=== PATIENT | male | born 1955 | race Caucasian/White ===

== ENCOUNTER 2018-07-08 11:50 | Day surgery (SDC) | payer MEDICARE, OTHER ==
[~2018-07-08] VITALS: Ht 172.7 cm; Wt 106.1 kg
[~2018-07-08 11:50] MED LIST: HYDROCODON-ACE1 EAC8 PO; POLYTRIM EYE DR10 ML OD; SHINGRIX ADJUV0.5 ML IM
--- NOTE | 2018-07-08 14:58 | NUR ---
07/08/18 1457 Sheets,Eleanor 1444 PT ARRIVED TO PACU ON 3L VIA NC, RESP EVEN AND UNLABORED. PT WAKES TO VERBAL STIMULI. 1450 MD AT BEDSIDE TALKING TO PT, MD AWARE OF ELEVATED BP. PT ROLLED TO BACK. 1451 PT REPORTS PAIN IN ABD 8/10, PT EDCATION GIVEN ON AIR USED DURING PROCEDURE. PT ROLLED TO SIDE. PT ENCOURGED TO PASS GAS/AIR.
--- NOTE | 2018-07-09 12:03 | OR ---
[facility] [address], [place] [address] Signed DATE OF OPERATION: 07/08/2018 SURGEON: Amanda Hoover MD PREOPERATIVE DIAGNOSIS: Colon screening. POSTOPERATIVE DIAGNOSES: 1. Multiple polyps. 2. Diverticulosis of sigmoid. PROCEDURE: Total colonoscopy to cecum with cold morcellation polypectomy x9. ANESTHESIA: Intravenous sedation, fentanyl 100 mcg, Versed 8 mg. INDICATION: This 63-year-old white man is a patient of Dr. Zamora and underwent screening colonoscopy by me in 2002, which was normal. He has additionally undergone left inguinal hernia repair by me in 2004 and is doing well in that regard. He is here to undergo screening colonoscopy, though he has no symptoms of bleeding, diarrhea, or constipation. He understands the risks of bleeding, infection, and perforation related to colonoscopy and wishes to proceed. FINDINGS: The prep was good. Complete colonoscopy was undertaken to the cecum. There were multiple small polyps throughout, two in the cecum, one at the hepatic flexure, four in the sigmoid, and two in the rectum. He had diverticula of the sigmoid as well. There were no other findings of note. PROCEDURE IN DETAIL: The patient was brought to the endoscopy suite and placed in lateral decubitus position, given intravenous sedation to the point of slurred speech and nystagmus. Full cardiopulmonary monitoring was maintained. Digital rectal examination was normal. The Olympus video colonoscope was passed in the rectum and manipulated throughout the colon noting diverticulosis of the sigmoid. The scope was ultimately advanced to the cecum. The ileocecal valve and appendiceal orifice were normal. There were two polyps, probably adenomas in the cecum, they were both excised with cold morcellation technique Electronically Signed By: AMANDA HOOVER MD 07/09/18 1203 PATIENT NAME: SHARON ORTA OPERATIVE REPORT DATE OF : 53 REPORT #: [id number] PHYSICIAN: AMANDA HOOVER MD PCP: LIVE ZAMORA MD REPORT IS CONFIDENTIAL AND NOT TO BE RELEASED WITHOUT AUTHORIZATION [facility] [address], [place] [address] Signed with multiple bites. The scope was withdrawn. Another single polyp was noted at the hepatic flexure that too was excised with cold morcellation technique. Further withdrawal of scope showed no other abnormality into the sigmoid where there were a cluster of four polyps, probably hyperplastic, all excised with cold morcellation technique and withdrawal to the upper rectum showing two small polyps probably hyperplastic, also both excised with cold morcellation technique. Retroflexed view was undertaken showing some internal hemorrhoidal changes. The scope was straightened, withdrawn, and removed, and the patient was taken to the recovery room in good condition. CONCLUDING DIAGNOSES: 1. Multiple polyps. 2. Diverticulosis. PLAN: Recommend repeat colonoscopy in one year. We will review his pathology reports as well. MD FRANKY Avila/AMADO /[id number] cc: Live Zamora MD Copies: LIVE ZAMORA MD ~ Electronically Signed By: AMANDA HOOVER MD 07/09/18 1203 PATIENT NAME: YOUSHARON JESSIKA OPERATIVE REPORT DATE OF : 53 REPORT #: [id number] PHYSICIAN: AMANDA HOOVER MD PCP: LIVE ZAMORA MD REPORT IS CONFIDENTIAL AND NOT TO BE RELEASED WITHOUT AUTHORIZATION
== END 2018-07-08 16:40 | disposition home or self-care (01) ==
LOC: DS 11:50 → OPS 11:50 → DS 13:00 → OPS 13:00
PROVIDERS: Surgery
PROC: 0DBL8ZX Excision of Transverse Colon, Via Natural or Artificial Opening Endoscopic, Diagnostic (ICD-10-PCS; 2018-07-08)
PROC: 0DBN8ZX Excision of Sigmoid Colon, Via Natural or Artificial Opening Endoscopic, Diagnostic (ICD-10-PCS; 2018-07-08)
PROC: 0DBP8ZX Excision of Rectum, Via Natural or Artificial Opening Endoscopic, Diagnostic (ICD-10-PCS; 2018-07-08)
PROC: 0DBH8ZX Excision of Cecum, Via Natural or Artificial Opening Endoscopic, Diagnostic (ICD-10-PCS; principal; 2018-07-08 13:00)
DX: Z12.11 Encounter for screening for malignant neoplasm of colon (principal); D12.0 Benign neoplasm of cecum; D12.3 Benign neoplasm of transverse colon; K63.5 Polyp of colon; K62.1 Rectal polyp; K57.30 Diverticulosis of large intestine without perforation or abscess without bleeding; K64.8 Other hemorrhoids; J45.909 Unspecified asthma, uncomplicated; M19.90 Unspecified osteoarthritis, unspecified site; M54.5 Low back pain; G89.29 Other chronic pain; E66.9 Obesity, unspecified; F12.20 Cannabis dependence, uncomplicated; F17.200 Nicotine dependence, unspecified, uncomplicated
CPT/HCPCS: 88305; 99153; G0500; J2250; J3010; J7120

== ENCOUNTER 2018-10-28 18:58 | Emergency (ER) | payer MEDICARE, OTHER ==
[~2018-10-28] VITALS: Ht 172.7 cm; Wt 99.8 kg
--- OUTSIDE RECORDS SUMMARY | ~2018-10-28 | XMS | Encounter Summary ---
Demographics + + + | Address | [address] | | | [place] [address] | + + + | Home Phone | | + + + | Preferred Language | Unknown | + + + | Marital Status | | + + + | Anabaptism Affiliation | NON | + + + | Race | White | + + + | Ethnic Group | Not or | + + + Author + + + | Author | [facility] | + + + | Organization | [facility] | + + + | Address | Unknown | + + + | Phone | Unavailable | + + + Support + + + + + | Name | Relationship | Address | Phone | + + + + + | Brandi Boyle | YURIY | [address] | | | | | [place], [place] | | | | | [address] | | + + + + + Care Team Providers + +------+ + | Care Appointment Setter Name | Role | Phone | + [...] [address] | | | | | [facility] | [address], [place] | | | | | Mailcode: [id number] | [address] | | | | | Physician[address] | | | | | | [place], [place] | | | | | | [address] | | | | | | [phone] | | | +--------+ + + + [...] | | | | | | five [id number] | | | | | | lumbar-type [...] | | + +---------+ + + | [facility] DEPARTMENT OF | | | | | [...] | | | | | | five [id number]-[id number] | | | | | | lumbar-type [...] | | + +---------+ + + | [facility] DEPARTMENT OF | | | | | [...] | | + +---------+ + + | [facility] DEPARTMENT OF | | | | | RADIOLOGY | | | | + +---------+ + + documented in this encounter Visit Diagnoses Not on filedocumented in this encounter"
--- OUTSIDE RECORDS SUMMARY | ~2018-10-28 | XMS | Encounter Summary ---
Demographics + + + | Address | [address] | | | [place] [address] | + + + | Home Phone | | + + + | Preferred Language | Unknown | + + + | Marital Status | | + + + | Uatsdin Affiliation | NON | + + + | Race | White | + + + | Ethnic Group | Not or | + + + Author + + + | Author | [facility] | + + + | Organization | [facility] | + + + | Address | Unknown | + + + | Phone | Unavailable | + + + Support + + + + + | Name | Relationship | Address | Phone | + + + + + | Brandi Boyle | YURIY | [address] | | | | | [place], [place] | | | | | [address] | | + + + + + Care Team Providers + +------+ + | Care Provider Service Representative Name | Role | Phone | + +------+ + | Yobani Millan DO | PCP | | + +------+ + Encounter Details +--------+ + + + + | Date | Type | Department | Care Team | Description | +--------+ + + + + | 07/29/ | Office | [facility] | Note, Outpatient | Progress Note | | 2001 | Visit-Trans | MEDICINE | Clinic | | | | cribed | | | | +--------+ + + [...] as of this encounter Progress Notes Interface, Data Processing Auditor In - 02/07/2006 6:22 AM PDTCLINIC DATE: 07/29/2001 ORTHOPEDIC CLINIC SUBJECTIVE: Mr. Boyle returns. He is still having significant back and lower extremity pain which he states is severe. He has been trying to be as active as possible. He is off OxyContin except at night. He is taking Vicodin and Lorcet in the day. He states the left is slightly worse than the right. PHYSICAL EXAMINATION: Unchanged. IMAGING STUDIES: Review of his EMG is equivocal with possible left L5 radiculopathy and maybe a mild right S1 radiculopathy. ASSESSMENT AND PLAN: At this point, I think we need to obtain further workup in the form of an MRI of the lumbar spine. Following this study, I will have him return to clinic in approximately 6 weeks. We will obtain AP and lateral flexion-extension views of the lumbar spine on his return. Juanjose Hayden M.D. / [id number] / [id number] / [id number] / [id number] cc: Yobani Millan D.O. [address] [place], [place] [id number] signed by Interface, Data Processing Auditor In at 02/07/2006 6:2 2 AM PDTdocumented in this encounter Plan of Treatment Not on filedocumented as of this encounter Visit Diagnoses Not on filedocumented in this encounter"
--- OUTSIDE RECORDS SUMMARY | ~2018-10-28 | XMS | Clinical Summary ---
Demographics + + + | Address | [address] | | | [place] [address] | + + + | Home Phone | | + + + | Preferred Language | Unknown | + + + | Marital Status | | + + + | Latter Day Affiliation | Unknown | + + + | Race | Unknown | + + + | Ethnic Group | Unknown | + + + Author + + + | Author | [facility] | | | and [place] | + + + | Organization | [facility] | | | and [...] Team Providers + +------+ + | Care [facility]ision [facility] Cente[facility] And Edger Name | Role | Phone | + [...] MD | | | | | | /[address] | | | | | | | [...] MD | | | | | | /[id number] | | | | | | | [...] | | | | | | SACRAL ([id number]) | | | | | + +--------+ [...] my direction according to | | | [facility] conscious sedation protocol. The area [...] + +--------+ | MEDICARE | MEDICA | [id number] | 09/02/19 | [phone] | | Medica | | | RE | | 07-Pre | 5 | | re | | | PART A | | sent | | | | | | AND B | | | | | | + +--------+ +--------+ + +--------+ | MODA | MODA | [id number] | 01/02/20 | [phone] | [address] | PPO | | | HEALTH | | 11-Pre | 9 | [phone] | | | | | | sent | | [place], | | | | [place] | | | | [place] [address] | | | | [place] | | [...] | | al/[place]swald | | 4 | [phone] | [place] | | | akshat | | | 2 (Home) | [address] | + +--------+ +--------+ + + Advance Directives Patient has advance care planning documents on file. For more information, please contact:[facility] [place] [address]
--- OUTSIDE RECORDS SUMMARY | ~2018-10-28 | XMS | Encounter Summary ---
Demographics + + + | Address | [address] | | | [place] [address] | + + + | Home Phone | | + + + | Preferred Language | Unknown | + + + | Marital Status | | + + + | Yarsani Affiliation | NON | + + + | Race | White | + + + | Ethnic Group | Not or | + + + Author + + + | Author | [facility] | + + + | Organization | [facility] | + + + | Address | Unknown | + + + | Phone | Unavailable | + + + Support + + + + + | Name | Relationship | Address | Phone | + + + + + | Brandi Boyle | YURIY | [address] | | | | | [place], [place] | | | | | [address] | | + + + + + Care Team Providers + +------+ + | Care Tube Knitter Name | Role | Phone | + +------+ + PCP | Unavailable | + +------+ + Encounter Details +--------+ + + + + | Date | Type | Department | Care Team | Description | +--------+ + + + + | 06/10/ | Results | Orthopaedics at | Juanjose Hayden MD | | | 2001 | Only | [facility] [address] | [address] | | | | | [facility] | [address], [place] | | | | | Mailcode: [id number] | [address] | | | | | Phys[address] | | | | | | [place], [place] | | | | | | [address] | | | | | | [phone] | | | +--------+ + + + [...] + | SPINE, LUMBOSACRAL, | Routin | 06/10/2001 | | Results for this | | 2 VIEWS | e | 2:15 PM | | procedure are in the | | | | PST | | results section. | + +--------+ + + + documented in this encounter Results SPINE, LUMBOSACRAL, 2 VIEWS (06/10/2001 2:15 PM PST) + + + + + + | Component | Value | Ref Range | Performed | Pathologist | | | | | At | Signature | + + + + + + | SPINE, | Radiologist 1: ANYI, | | | | | LUMBOSACRAL | Rema CAMPBELL-Radiologist | | | | | , 2 VIEWS | 2: RENEE SOMMERS AND | | | | | | LATERAL LUMBAR | | | | | | SPINE: 06/10/2001 | | | | | | Dictated 06/11/2001 | | | | | | COMPARISON: 04/30/01. | | | | | | FINDINGS: Combined | | | | | | anterior and posterior | | | | | | fusion of L5-S1 | | | | | | appearsunchanged with | | | | | | intact posterior facet | | | | | | screws and two interbody | | | | | | cages.There is no | | | | | | evidence of hardware | | | | | | loosening or | | | | | | failure. The | | | | | | interbodycages are | | | | | | unchanged in position | | | | | | and there is anatomic | | | | | | postoperativealignment | | | | | | of the lumbar | | | | | | spine. The remaining | | | | | | vertebral body | | | | | | heightsand | | | | | | intervertebral disc | | | | | | spaces are | | | | | | maintained. The | | | | | | pedicles andneural | | | | | | arches are | | | | | | intact. There is no | | | | | | interval change in | | | | | | sacroiliacdegenerative | | | | | | joint disease, left | | | | | | greater than right. | | | | | | IMPRESSION: | | | | | | 1. Combined anterior | | | | | | and posterior fusion, | | | | | | L5-S1 with | | | | | | intactposterior facet | | | | | | screws and interbody | | | | | | cages and no interval | | | | | | change inalignment or | | | | | | hardware failure. | | | | | | 2. 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 | | | | | | END OF IMPRESSION: | | | | + + + + + + + + | Specimen | + + | | + + + +---------+ + + | Performing | Address | City/State/Zipcode | Phone Number | | Organization | | | | + +---------+ + + | [facility] | | | | | RADIOLOGY | | | | + +---------+ + + documented in this encounter Visit Diagnoses Not on filedocumented in this encounter"
--- OUTSIDE RECORDS SUMMARY | ~2018-10-28 | XMS | Encounter Summary ---
Demographics + + + | Address | [address] | | | [place] [address] | + + + | Home Phone | | + + + | Preferred Language | Unknown | + + + | Marital Status | | + + + | Yazdanism Affiliation | Unknown | + + + | Race | Unknown | + + + | Ethnic Group | Unknown | + + + Author + + + | Author | [facility] | | | and [place] | + + + | Organization | [facility] | | | and [...] Team Providers + +------+ + | Care Legal Financial Specialist Name | Role | Phone | + +------+ + | Hamzah Zamora | PCP | Unavailable | + +------+ + Encounter Details +--------+ + + + + | Date | Type | Department | Care Team | Description | +--------+ + + + + | 08/13/ | Hospital | [facility] | Nick Ram | Chronic lumbar | | 2019 | Encounter | MED CTR OR PRE OP | MD Zeeshan [address] | radiculopathy; | | | | [address] | [address] [place] | Failed back syndrome | | | | [place] [id number] | [address] | of lumbar spine; | | | | | | S/P lumbar fusion | +--------+ + + + + Social History + +-------+ +--------+ [...] + + documented as of this encounter Last Filed Vital Signs + + + + | Vital Sign | Reading | Time Taken | + + + + | Blood Pressure | 139/95 | 08/13/20181413 PDT | + + + + | Pulse | 77 | 08/13/20181413 PDT | + + + + | Temperature | 36.2 C (97.2 F) | 08/13/2018 1250 PDT | + + + + | Respiratory Rate | 12 | 08/13/20181413 PDT | + + + + | Oxygen Saturation | 93% | 08/13/2018 1416 PDT | + + + + | Inhaled Oxygen | - | - | | Concentration | | | + + + + | Weight | 104.4 kg (230 lb 2.6 | 08/13/20181249 PDT | | | oz) | | + + + + | Height | 172.7 cm (5' 8") | 08/13/20181249 PDT | + + + + | Body Mass Index | 35 | 08/13/20181249 PDT | + + + + documented in this encounter Medications at Time of Discharge + + + +---------+ + + | Medication | Sig | Dispensed | Refills | Start | End Date | | | | | | Date | | + + + +---------+ + + | SHINGRIX 50 | Inject 50 mcg as | | 0 | 03/11/20 | | | MCG/0.5ML vaccine | directed once. | | | 19 | | | injection | | | | | | + + + +---------+ + + documented as of this encounter [...] | | | | | | SACRAL ([id number]) | | | | | + +--------+ + + + +---+--------+ | | Case | | | Notes | | | SCS | +---+--------+ | | | | | Specia | | | l | | | Needs | | | CHECK | | | IN AT | | | 1100 | +---+--------+ documented in this encounter Results IR Pain Management/Skeletal (08/13/2018 13:20 PDT) [...] my direction according to | | | [facility] conscious sedation protocol. The area for [...] + documented in this encounter Visit Diagnoses + + | Diagnosis | + + | Chronic lumbar radiculopathy Thoracic or lumbosacral neuritis or radiculitis, | | unspecified | + + | Failed back syndrome of lumbar spine Postlaminectomy syndrome, lumbar region | + + | S/P lumbar fusion Arthrodesis status | + + documented in this encounter Administered Medications + +---------+ +------+ +------+ | Medication Order | MAR | Action | Dose | Rate | Site | | | Action | Date | | | | + +---------+ +------+ +------+ | ceFAZolin (ANCEF, KEFZOL) 100 | New Bag | 08/14/19 | 2 g | 40 mL/hr | | | mg/mL IV syringe 2 g 2 g, | | 19 13:20 | | | | | Intravenous, Administer over 30 | | PDT | | | | | Minutes, Prior to Incision, | | | | | | | Starting 08/13/18 at 1300, For | | | | | | | 1 dose, Pre-op, Indications: | | | | | | | Surgical Prophylaxis | | | | | | + +---------+ +------+ +------+ +---+---+ | | | +---+---+ + +-------+ +-------+---+---+ | diphenhydrAMINE (BENADRYL) | Given | 08/14/19 | 25 mg | | | | injection PRN, Starting Wed | | 19 13:47 | | | | | 08/13/18 at 1347 | | PDT | | | | + +-------+ +-------+---+---+ +---+---+ | | | +---+---+ + +-------+ +--------+---+---+ | fentaNYL (PF) injection PRN, | Given | 08/14/19 | 50 mcg | | | | Starting 08/13/18 at 1333 | | 19 13:40 | | | | | | | PDT | | | | + +-------+ +--------+---+---+ +-------+ +---------+---+---+ | Given | 08/14/19 | 50 mcg | | | | | 19 13:37 | | | | | | PDT | | | | +-------+ +---------+---+---+ | Given | 08/14/19 | 100 mcg | | | | | 19 13:33 | | | | | | PDT | | | | +-------+ +---------+---+---+ +---+---+ | | | +---+---+ + +-------+ +-------+---+ + | lidocaine buffered 0.9% | Given | 08/14/19 | 9 mLs | | Other | | injection 9 mL 9 mL, | | 19 13:35 | | | (Comment | | Intradermal, ONCE, 08/13/18 at | | PDT | | | ) | | 1330, For 1 dose | | | | | | + +-------+ +-------+---+ + +---+---+ | | | +---+---+ + +-------+ +------+---+---+ | midazolam (VERSED) 1 mg/mL | Given | 08/14/19 | 1 mg | | | | injection PRN, Starting Wed | | 19 13:40 | | | | | 08/13/18 at 1332 | | PDT | | | | + +-------+ +------+---+---+ +-------+ +------+---+---+ | Given | 08/14/19 | 1 mg | | | | | 19 13:37 | | | | | | PDT | | | | +-------+ +------+---+---+ | Given | 08/14/19 | 2 mg | | | | | 19 13:32 | | | | | | PDT | | | | +-------+ +------+---+---+ + +---+ | | | + +---+ | sodium chloride 0.9% (NS) | | | infusion at 50 mL/hr, | | | Intravenous, CONTINUOUS, Starting | | | 08/13/18 at 1330, OK to use | | | implantable port., Pre-op | | + +---+ | | | + +---+ documented in this encounter
--- OUTSIDE RECORDS SUMMARY | ~2018-10-28 | XMS | Encounter Summary ---
Demographics + + + | Address | [address] | | | [place] [address] | + + + | Home Phone | | + + + | Preferred Language | Unknown | + + + | Marital Status | | + + + | Adventism Affiliation | NON | + + + | Race | White | + + + | Ethnic Group | Not or | + + + Author + + + | Author | [facility] | + + + | Organization | [facility] | + + + | Address | Unknown | + + + | Phone | Unavailable | + + + Support + + + + + | Name | Relationship | Address | Phone | + + + + + | Brandi Boyle | YURIY | [address] | | | | | [place], [place] | | | | | [address] | | + + + + + Care Team Providers + +------+ + | Care Equal Opportunity Counselor Name | Role | Phone | + +------+ + | Yobani Millan DO | PCP | | + +------+ + Encounter Details +--------+ + + + + | Date | Type | Department | Care Team | Description | +--------+ + + + + | 05/08/ | Office | [facility] | Note, Outpatient | Progress Note | | 2000 | Visit-Trans | MEDICINE | Clinic | [...] as of this encounter Progress Notes Interface, Foreman Or Supervisor And Operator In - 02/23/2006 3:02 AM PDTCLINIC DATE: 05/08/2001 ORTHOPEDIC CLINIC The patient called for a refill on his oxycodone. The prescription was mailed to patient's home address for oxycodone 5 mg 1-2 tablets p.o. q.4-6h. p.r.n. pain, no refills. This was approved by Melanie Kwon. A prescription for Tylenol No. 3, quantity of 60, 1-2 tablets p.o. q.4-6h. p.r.n. pain was called into [facility] at [phone]. Maria Eugenia Roche dictating for: CHENCHO Karimi MM / [id number] / [id number] / [id number] / [id number] C: 05/12/2001 hkh A M PDTdocumented in this encounter Plan of Treatment Not on filedocumented as of this encounter Visit Diagnoses Not on filedocumented in this encounter"
--- OUTSIDE RECORDS SUMMARY | ~2018-10-28 | XMS | Clinical Summary ---
Demographics + + + | Address | [address] | | | [place] [address] | + + + | Home Phone | | + + + | Preferred Language | Unknown | + + + | Marital Status | | + + + | Sabianism Affiliation | Unknown | + + + | Race | Unknown | + + + | Ethnic Group | Unknown | + + + Author + + + | Author | [facility] | | | and [place] | + + + | Organization | [facility] | | | and [...] Team Providers + +------+ + | Care Hris Analyst Name | Role | Phone | + [...] MD | | | | | | /[address] | | | | | | | [...] MD | | | | | | /[address] | | | | | | | [...] | | | | | | SACRAL ([address]) | | | | | + +--------+ [...] my direction according to | | | [facility] conscious sedation protocol. The area for the [...] + +--------+ | MEDICARE | MEDICA | [id number] | 09/02/19 | [phone] | | Medica | | | RE | | 07-Pre | 5 | | re | | | PART A | | sent | | | | | | AND B | | | | | | + +--------+ +--------+ + +--------+ | MODA | MODA | [id number] | 01/02/20 | [phone] | [address] | PPO | | | HEALTH | | 11-Pre | 9 | [phone] | | | | | | sent | | [place], | | | | [place] | | | | [place] [address] | | | | [place] | | [...] | | al/[place]ald | | 4 | [phone] | [place] | | | [place]ks[place] | | | 2 (Home) | [address] | + +--------+ +--------+ + + Advance Directives Patient has advance care planning documents on file. For more information, please contact:[facility] [place] [address]
--- OUTSIDE RECORDS SUMMARY | ~2018-10-28 | XMS | Encounter Summary ---
Demographics + + + | Address | [address] | | | [place] [address] | + + + | Home Phone | | + + + | Preferred Language | Unknown | + + + | Marital Status | | + + + | Zoroastrian Affiliation | NON | + + + | Race | White | + + + | Ethnic Group | Not or | + + + Author + + + | Author | [facility] | + + + | Organization | [facility] | + + + | Address | Unknown | + + + | Phone | Unavailable | + + + Support + + + + + | Name | Relationship | Address | Phone | + + + + + | Brandi Boyle | YURIY | [address] | | | | | [place], [place] | | | | | [address] | | + + + + + Care Team Providers + +------+ + | Care Database Programmer Name | Role | Phone | + +------+ + | Yobani Milaln DO | PCP | | + +------+ + Encounter Details +--------+ + + + + | Date | Type | Department | Care Team | Description | +--------+ + + + + | 05/22/ | Office | [facility] | Note, [...] as of this encounter Progress Notes Interface, Inside Tester In - 02/23/2006 3:02 AM PDTCLINIC DATE: 05/22/2001 ORTHOPEDIC CLINIC The patient and his contacted the [facility] requesting pain medication refills as they have had difficulty with insurance coverage. The patient is wanting to titrate his medication gradually, and to do this, he is needing OxyContin 40 mg, quantity 48 with no refills as well as OxyContin 10 mg, quantity 90. He is not currently taking oxycodone. Grace Everett / [id number] / [id number] / [id number] / [id number] Tdocumented in this encounter Plan of Treatment Not on filedocumented as of this encounter Visit Diagnoses Not on filedocumented in this encounter"
--- OUTSIDE RECORDS SUMMARY | ~2018-10-28 | XMS | Encounter Summary ---
Demographics + + + | Address | [address] | | | [place] [address] | + + + | Home Phone | | + + + | Preferred Language | Unknown | + + + | Marital Status | | + + + | Hoahaoism Affiliation | NON | + + + | Race | White | + + + | Ethnic Group | Not or | + + + Author + + + | Author | [facility] | + + + | Organization | [facility] | + + + | Address | Unknown | + + + | Phone | Unavailable | + + + Support + + + + + | Name | Relationship | Address | Phone | + + + + + | Brandi Boyle | YURIY | [address] | | | | | [place], [place] | | | | | [address] | | + + + + + Care Team Providers + +------+ + | Care Auto Striper Name | Role | Phone | + +------+ + | Yobani Millan DO | PCP | | + +------+ + Encounter Details +--------+ + + + + | Date | Type | Department | Care Team | Description | +--------+ + + + + | 06/17/ | Office | [facility] | Note, [...] as of this encounter Progress Notes Interface, Monkey Trainer In - 02/19/2006 1:11 AM PDTCLINIC DATE: 06/17/2001 ORTHOPEDIC CLINIC SUBJECTIVE: Mr. Boyle returns. He has continued to have some lower extremity pain symptoms. He has undergone a CT scan of the lumbar spine. He has had no change in his symptoms since his last visit. He is, however, weaning on his pain medicines although he is currently taking OxyContin. PHYSICAL EXAMINATION: Unchanged. He remains neurologically intact. DIAGNOSTIC STUDIES: Review of his CT scan demonstrates appropriate placement of the anterior interbody cages and bone graft as well as of the posterior translaminar screws. I did not see anything encroaching on the canal. There was possibly some mild foraminal stenosis at L5 and S1 level. Certainly, there is nothing above the level of the operation. ASSESSMENT: Mr. Boyle is 8 weeks status post anterior posterior lumbar fusion with persistent leg pain. PLAN: I am hopeful that this will gradually resolve with some time. Certainly, I did not think any acute intervention as indicated. I would like to obtain an EMG of the lower extremities in order to verify that he does not have an ongoing significant radiculopathy. This will give us a baseline for comparison. I think this can be done in [place], and the results can simply be mailed to me in order to save them a trip down. I will schedule a return appointment in 6 weeks. On his return, we shall obtain AP, flexion, and extension views of the lumbar spine. Juanjose Hayden M.D. / YOLANDA [id number] / [id number] / [id number] / cc: Yobani Millan D.O. [address] [place], [place] [email or web address] signed by Interface, Monkey Trainer In at 02/19/2006 1:1 1 AM PDTdocumented in this encounter Plan of Treatment Not on filedocumented as of this encounter Visit Diagnoses Not on filedocumented in this encounter"
--- OUTSIDE RECORDS SUMMARY | ~2018-10-28 | XMS | Clinical Summary ---
Demographics + + + | Address | [address] | | | [place] [address] | + + + | Home Phone | | + + + | Preferred Language | Unknown | + + + | Marital Status | Unknown | + + + | Hoahaoism Affiliation | Unknown | + + + | Race | Unknown | + + + | Ethnic Group | Unknown | + + + Author + + + | Author | [facility] | + + + | Organization | [facility] | + + + | Address | Unknown | + + + | Phone | Unavailable | + + + Care Team Providers + +------+ + | Care Addressing Machine Operator Name | Role | Phone | [...] | 2019 | Requisition | | A, Braille Coder | | +--------+ + + + + [...]
--- OUTSIDE RECORDS SUMMARY | ~2018-10-28 | XMS | Encounter Summary ---
Demographics + + + | Address | [address] | | | [place] [address] | + + + | Home Phone | | + + + | Preferred Language | Unknown | + + + | Marital Status | | + + + | Taoism Affiliation | NON | + + + [...] [place], [place] | | | | | [address] | | + + + + + Care Team Providers + +------+ + | Care Trolley Collector Name | Role | Phone | + [...] as of this encounter Progress Notes Interface, Underground Repairer In - 03/29/2006 3:04 AM [facility] [place] [address] [address] or October 08, 2000 Yobani Millan D.O. [address] [place] [address] RE: BERTRAM ORTA MR #: [id number] Dear Dr. Millan: It is a pleasure to see your patient Mr. Bertram Orta in the [facility] at [place]. As you are well aware, this 41-year [...] extremities including the deltoids, biceps, triceps, and commercial sales representative, hip flexion extension, knee flexion extension, dorsal [...] needs to be referred to the [facility] to Dr. Steven Price in [...] the chance. Yours sincerely, Dirk Davis M.D. [facility] / [id number] / [id number] / [id number] / cc: Steven Price M.D. [facility] Department of Pain Clinic [id number] signed by Interface, Underground Repairer In at 03/29/2006 3:04 AM PDTdocume nted in this encounter Plan of Treatment Not on filedocumented as of this encounter Visit Diagnoses Not on filedocumented in this encounter
--- OUTSIDE RECORDS SUMMARY | ~2018-10-28 | XMS | Clinical Summary ---
Demographics + + + | Address | [address] | | | [place] [address] | + + + | Home Phone | | + + + | Preferred Language | Unknown | + + + | Marital Status | Unknown | + + + | Bahai Affiliation | Unknown | + + + | Race | Unknown | + + + | Ethnic Group | Unknown | + + + Author + + + | Author | [facility] | + + + | Organization | [facility] | + + + | Address | Unknown | + + + | Phone | Unavailable | + + + Care Team Providers + +------+ + | Care Bandage Wrapping Machine Operator Name | Role | Phone [...] | 2019 | Requisition | | A, Faculty Head | | +--------+ + + + + [...]
--- OUTSIDE RECORDS SUMMARY | ~2018-10-28 | XMS | Encounter Summary ---
Demographics + + + | Address | [address] | | | [place] [address] | + + + | Home Phone | | + + + | Preferred Language | Unknown | + + + | Marital Status | | + + + | Sabianist Affiliation | NON | + + + | Race | White | + + + | Ethnic Group | Not or | + + + Author + + + | Author | [facility] | + + + | Organization | [facility] | + + + | Address | Unknown | + + + | Phone | Unavailable | + + + Support + + + + + | Name | Relationship | Address | Phone | + + + + + | Brandi Boyle | YURIY | [address] | | | | | [place], [place] | | | | | [address] | | + + + + + Care Team Providers + +------+ + | Care Pump Operator Name | Role | Phone | [...] as of this encounter Progress Notes Interface, Seasoning Sprayer In - 03/03/2006 10:28 AM PDTCLINIC DATE: [...] radiculopathy. Bubba Karimi M.D. [facility] / YOLANDA [id number] / [id number] / [id number] / [id number] Tdocumented in this encounter Plan of Treatment Not on filedocumented as of this encounter Visit Diagnoses Not on filedocumented in this encounter"
--- OUTSIDE RECORDS SUMMARY | ~2018-10-28 | XMS | Encounter Summary ---
Demographics + + + | Address | [address] | | | [place] [address] | + + + | Home Phone | | + + + | Preferred Language | Unknown | + + + | Marital Status | | + + + | Christianity Affiliation | NON | + + + | Race | White | + + + | Ethnic Group | Not or | + + + Author + + + | Author | [facility] | + + + | Organization | [facility] | + + + | Address | Unknown | + + + | Phone | Unavailable | + + + Support + + + + + | Name | Relationship | Address | Phone | + + + + + | Brnadi Boyle | YURIY | [address] | | | | | [place], [place] | | | | | [address] | | + + + + + Care Team Providers + +------+ + | Care Screen Printing Machine Operator Name | Role | Phone | + +------+ + | Yobani Millan DO | PCP | | + +------+ + Encounter Details +--------+ + + + + | Date | Type | Department | Care Team | Description | +--------+ + + + + | 04/29/ | Documentati | Anesthesiology | Unknown . | | | 2000 | on | [address] | | | | [address] | | | | | | [place], [place] | | | | | | [address] | | | +--------+ + + + [...] | + +--------+ + + + | ANESTHESIA/SEDATION | | 04/29/2001 | | Results for this | | | | 11:03 AM | | procedure are in the | | | | PST | | results section. | + +--------+ + + + documented in this encounter Results ANESTHESIA/SEDATION (04/29/2001 11:03 AM PST) + + + | Narrative | Performed At | + + + | Ordered by an unspecified provider. | | + + + + + | Transcriptions | + + | 04/29/2001 11:03 AM [facility] Anesthesia PostOp Report | | | | Patient: YOU SHARON Med Rec: [id number] Neil M Bdate: 1955 | | Date/Time Data | | Entered Into [facility] | | Anesth PostOp | | Surgery Date [id number] 04/29/01 11:03 | | Anesthesiologist RHINA GREEN 04/29/01 11:03 | | Resident Anesthesiolog BISHOP BHATTIAH 04/29/01 11:03 | | Complications | | None/None Reported YES 04/29/01 15:28 | | Outcomes Information | | Satisfied with care YES 04/29/01 15:28 | | Info obtained from PATIENT 04/29/01 15:28 | | Outcome of Anesthesia NO CHANGE IN HOSPITAL COURSE 04/29/01 15:28 | | | + + documented in this encounter Visit Diagnoses Not on filedocumented in this encounter"
--- OUTSIDE RECORDS SUMMARY | ~2018-10-28 | XMS | Encounter Summary ---
Demographics + + + | Address | [address] | | | [place] [address] | + + + | Home Phone | | + + + | Preferred Language | Unknown | + + + | Marital Status | | + + + | Confucianism Affiliation | NON | + + + [...] [place], [place] | | | | | [address] | | + + + + + Care Team Providers + +------+ + | Care Mobile Designer Name | Role | Phone | + +------+ + | Yobani Millan DO | PCP | | + +------+ + Encounter Details +--------+ + + + + | Date | Type | Department | Care Team | Description | +--------+ + + + + | 06/10/ | Office | [facility] | Note, [...] as of this encounter Progress Notes Interface, Nurse School In - 02/19/2006 1:11 AM PDTCLINIC DATE: 06/10/2001 ORTHOPEDIC CLINIC SUBJECTIVE: Mr. Boyle returns. His low back pain continues to improve. He is continuing to have persistent pain in his back as well as down the posterior aspect of both legs. His left leg is having some symptoms of "going out." He has been using Neurontin which does help significantly. He has had no lower extremity numbness at all. PHYSICAL EXAMINATION: Positive straight leg raises that is completely negative with respect to neurologic status. ASSESSMENT: My assessment is that Mr. Boyle has persistent difficulty status post anteroposterior lumbar fusion. At this point, I feel we are obliged to workup the possibility of a spinal stenosis or impingement by the hardware. I am going to schedule him for a CT myelogram of the lumbar spine and then follow him up in the clinic following that study. He will call us if further concerns arise. Juanjose Hayden M.D. / YOLANDA [id number] / [id number] / [id number] / cc: Yobani Millan D.O. [address] [place], [place] [id number] signed by Interface, Nurse School In at 02/19/2006 1:1 1 AM PDTdocumented in this encounter Plan of Treatment Not on filedocumented as of this encounter Visit Diagnoses Not on filedocumented in this encounter
--- OUTSIDE RECORDS SUMMARY | ~2018-10-28 | XMS | Encounter Summary ---
Demographics + + + | Address | [address] | | | [place] [address] | + + + | Home Phone | | + + + | Preferred Language | Unknown | + + + | Marital Status | | + + + | Restorationism Affiliation | Unknown | + + + | Race | Unknown | + + + | Ethnic Group | Unknown | + + + Author + + + | Author | [facility] | | | and [place] | + + + | Organization | [facility] | | [...] Team Providers + +------+ + | Care Blender Helper Name | Role | Phone | + +------+ + | Hamzah Zamora | PCP | Unavailable | + +------+ + Encounter Details +--------+---------+ + + + | Date | Type | Department | Care Team | Description | +--------+---------+ + + + | 08/13/ | Surgery | [facility] | Nick Ram | [facility] with [facility] | | 2019 | | [facility] OP | MD Zeeshan [address] | | | | | [address] | [address] [place] | | | | | [place] | [address] | | | | | [address] | | | | | | [phone] | | | +--------+---------+ + + + Social History [...] | 104.4 kg (230 lb 2.6 | 08/13/2018 125 PDT | | | oz) | | + + + + | Height | 172.7 cm (5' 8") | 08/13/2018 1250 PDT | + + + + | Body Mass Index | 35 | 08/13/2018 1250 PDT | + + + + documented in this encounter Medications at Time of Discharge + + + +---------+ + + | Medication | Sig | Dispensed | Refills | Start | End Date | | | | | | Date | | + + + +---------+ + + | SHINGRIX 50 | Inject 50 mcg as | | 0 | 08/12/19 | | | MCG/0.5ML vaccine | directed [...] | | | | | | SACRAL (60310) | | | | | + +--------+ [...] my direction according to | | | [facility]. The area for [...] Diagnoses Not on filedocumented in this encounter Administered Medications + +---------+ [...]
--- OUTSIDE RECORDS SUMMARY | ~2018-10-28 | XMS | Encounter Summary ---
Demographics + + + | Address | [address] | | | [place] [address] | + + + | Home Phone | | + + + | Preferred Language | Unknown | + + + | Marital Status | | + + + | Baptist Affiliation | NON | + + + | Race | White | + + + | Ethnic Group | Not or | + + + Author + + + | Author | [facility] | + + + | Organization | [facility] | + + + | Address | Unknown | + + + | Phone | Unavailable | + + + Support + + + + + | Name | Relationship | Address | Phone | + + + + + | Brandi Boyle | YURIY | [address] | | | | | [place], [place] | | | | | [address] | | + + + + + Care Team Providers + +------+ + | Care Elevator Builder Name | Role | Phone | + +------+ + | Yobani Millan DO | PCP | | + +------+ + Encounter Details +--------+ + + + + | Date | Type | Department | Care Team | Description | +--------+ + + + + | 08/17/ | Results | Orthopaedics at | Juanjose Hayden MD | | | 2005 | Only | [facility] [address] | [address] | | | | | [facility] [address] | [address] [place], [place] | | | | | Mailcode: [id number] | [address] | | | | | [facility] | | | | | | [place], [place] | | | | | | [address] | | | | | | [phone] | | | +--------+ + + + [...] as of this encounter Plan of Treatment + +---------+--------+ + + | Name | Type | Priori | Associated Diagnoses | Date/Time | | | | ty | | | + +---------+--------+ + + | MRI OUTSIDE FILMS | Imaging | Routin | | 08/17/2005 12:00 AM | | | | e | | PST | + +---------+--------+ + + documented as of this encounter Visit Diagnoses Not on filedocumented in this encounter"
--- OUTSIDE RECORDS SUMMARY | ~2018-10-28 | XMS | Encounter Summary ---
Demographics + + + | Address | [address] | | | [place] [address] | + + + | Home Phone | | + + + | Preferred Language | Unknown | + + + | Marital Status | | + + + | Adventist Affiliation | NON | + + + | Race | White | + + + | Ethnic Group | Not or | + + + Author + + + | Author | [facility] | + + + | Organization | [facility] | + + + | Address | Unknown | + + + | Phone | Unavailable | + + + Support + + + + + | Name | Relationship | Address | Phone | + + + + + | Brandi Boyle | YURIY | [address] | | | | | [place], [place] | | | | | [address] | | + + + + + Care Team Providers + +------+ + | Care Veterans Service Representative Name | Role | Phone | + +------+ + | Yobani Millan DO | PCP | | + +------+ + Reason for Visit + + + | Reason | Comments | + + + | Return Patient | 2 yr follow up | + + + Encounter Details +--------+---------+ + + + | Date | Type | Department | Care Team | Description | +--------+---------+ + + + | 10/23/ | Office | Orthopaedics at | Juanjose Hayden MD | Sacro-Iliac Pain; | | 2005 | Visit | [facility] [address] | [address] | Lumbar Spinal | | | | [address] | [address] [place], [place] | Stenosis | | | | Mailcode: [id number] | [address] | | | | | [facility] | | | | | | [place], [place] | | | | | | [address] | | | | | | [phone] | | | +--------+---------+ + + + [...] documented as of this encounter Progress Notes Juanjose Hayden - 10/23/2005 3:57 PM PDTMr. Tam[place] returns after a two year absence. He is hav ing persistent back pain with some leg pain as well. Back is the worst problem. Very activ ity related. Bilateral leg pain, cramping quality. Left > Right, also some numbness, inter mittent. No B/B sx. Still sees Dr. Millan in [place]. Exam is unchanged since last visit, as is pmh. retired from the [employer] system. 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 Prior CT-myelogram shows no stenosis and the f usion is solid. THe L1/2 dis is mildly stenotic to the left, but the new MRI doesn't show a problem there. THe new MRI actually looks pretty normal above the fusion at L5/S1. I would recommend a CT-guided injection o the left SI joint. They prefer to get this in [place], which is fine. I will talk to Juanjose by phone once this is complete. This should be a combination of lidocaine and some form of steroid, and should be done in the CT scanner to verify needle placement. d ocumented in this encounter Plan of Treatment Not on filedocumented as of this encounter Visit Diagnoses + + | Diagnosis | + + | Sacro-iliac pain Disorders of sacrum | + + | Lumbar spinal stenosis Spinal stenosis, lumbar region, without neurogenic | | claudication | + + documented in this encounter"
--- OUTSIDE RECORDS SUMMARY | ~2018-10-28 | XMS | Encounter Summary ---
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
--- OUTSIDE RECORDS SUMMARY | ~2018-10-28 | XMS | Encounter Summary ---
Demographics + + + | Address | [address] | | | [place] [address] | + + + | Home Phone | | + + + | Preferred Language | Unknown | + + + | Marital Status | | + + + | Uatsdin Affiliation | NON | + + + | Race | White | + + + | Ethnic Group | Not or | + + + Author + + + | Author | [facility] | + + + | Organization | [facility] | + + + | Address | Unknown | + + + | Phone | Unavailable | + + + Support + + + + + | Name | Relationship | Address | Phone | + + + + + | Brandi Boyle | YURIY | [address] | | | | | [place], [place] | | | | | [address] | | + + + + + Care Team Providers + +------+ + | Care Printer'S Assistant Name | Role | Phone | + +------+ + | Yobani Millan DO | PCP | | + +------+ + Encounter Details +--------+ + + + + | Date | Type | Department | Care Team | Description | +--------+ + + + + | 10/02/ | Ancillary | Registration [id number] | | | | 2005 | [facility] | [address] | | | | | n | [facility] Mailcode: | | | | | | [id number] [place], [place] | | | | | | [address] | | | | | | [phone] | | | +--------+ + + + [...]
--- OUTSIDE RECORDS SUMMARY | ~2018-10-28 | XMS | Encounter Summary ---
Demographics + + + | Address | [address] | | | [place] [address] | + + + | Home Phone | | + + + | Preferred Language | Unknown | + + + | Marital Status | | + + + | Yarsani Affiliation | NON | + + + | Race | White | + + + | Ethnic Group | Not or | + + + Author + + + | Author | [facility] | + + + | Organization | [facility] | + + + | Address | Unknown | + + + | Phone | Unavailable | + + + Support + + + + + | Name | Relationship | Address | Phone | + + + + + | Brandi Boyle | YURIY | [address] | | | | | [place], [place] | | | | | [address] | | + + + + + Care Team Providers + +------+ + | Care Hard Hat Diver Name | Role | Phone | + [...] | Lumbar Spinal | | | | [address] | [address] [place], [place] | Stenosis | | | | Mailcode: [id number] | [address] | | | | | [facility] | | | | | | [place], [place] | | | | | | [address] | | | | | | [phone] | | | +--------+---------+ + + + [...] B/B sx. Still sees Dr. Millan in [place]. Exam is unchanged since last visit, as is pmh. retired from the [employer] system. CT scan shows that both SI [...]
--- OUTSIDE RECORDS SUMMARY | ~2018-10-28 | XMS | Encounter Summary ---
Demographics + + + | Address | [address] | | | [place] [address] | + + + | Home Phone | | + + + | Preferred Language | Unknown | + + + | Marital Status | | + + + | Adventist Affiliation | Unknown | + + + | Race | Unknown | + + + | Ethnic Group | Unknown | + + + Author + + + | Author | [facility] | | | and [place] | + + + | Organization | [facility] | | | [...] Team Providers + +------+ + | Care Director Dietetics Department Name | Role | Phone | + +------+ + | Hamzah Zamora | PCP | Unavailable | + +------+ + Reason for Visit + + + | Reason | Comments | + + + | Medication Refill | | | Assistance | | + + + Encounter Details +--------+ + + + + | Date | Type | Department | Care Team | Description | +--------+ + + + + | 08/14/ | Telephone | [facility] | Nick Ram | Medication Refill | | 2019 | | [address]SIATRY [address] | Assistance | | | | [place], | [place], [place] | | | | | [place] [address] | [address] | | | | | [phone] | | | +--------+ + + + [...]
--- OUTSIDE RECORDS SUMMARY | ~2018-10-28 | XMS | Encounter Summary ---
Demographics + + + | Address | [address] | | | [place] [address] | + + + | Home Phone | | + + + | Preferred Language | Unknown | + + + | Marital Status | | + + + | Church Affiliation | NON | + + + | Race | White | + + + | Ethnic Group | Not or | + + + Author + + + | Author | [facility] | + + + | Organization | [facility] | + + + | Address | Unknown | + + + | Phone | Unavailable | + + + Support + + + + + | Name | Relationship | Address | Phone | + + + + + | Brandi Boyle | YURIY | [address] | | | | | [place], [place] | | | | | [address] | | + + + + + Care Team Providers + +------+ + | Care Receiving Checker Name | Role | Phone | + [...] | | | [facility] | [address] [place], [place] | | | | | Mailcode: [id number] | [address] | | | | | [facility] | | | | | | [place], [place] | | | | | | [address] | | | | | | [phone] | | | +--------+ + + + [...] | | | | | | five [id number] | | | | | | lumbar-type [...] | | + +---------+ + + | [facility] DEPARTMENT OF | | | | [...] | | | | | | five [id number] | | | | | | lumbar-type [...] | | + +---------+ + + | [facility] DEPARTMENT OF | | | | [...] | | + +---------+ + + | [facility] DEPARTMENT OF | | | | | RADIOLOGY | | | | + +---------+ + + documented in this encounter Visit Diagnoses Not on filedocumented in this encounter"
--- OUTSIDE RECORDS SUMMARY | ~2018-10-28 | XMS | Encounter Summary ---
Demographics + + + | Address | [address] | | | [place] [address] | + + + | Home Phone [...] + + + | Author | [facility] | + + + | Organization | [facility] | + + + | Address | Unknown | + + + | Phone | Unavailable | + + + Support + + + + + | Name | Relationship | Address | Phone | + + + + + | Brandi Boyle | YURIY | [address] | | | | | [place], [place] | | | | | [address] | | + + + + + Care Team Providers + +------+ + | Care Print Producer Name | Role | Phone | + [...] as of this encounter Progress Notes Interface, Business Intelligence Developer In - 02/07/2006 6:22 AM PDTCLINIC DATE: [...] on his return. Juanjose Hayden M.D. / [id number] / [id number] / [id number] / [phone] cc: Yobani Millan D.O. [address] [place], [place] [id number] signed by Interface, Business Intelligence Developer In at 02/07/2006 6:2 2 AM PDTdocumented in this encounter Plan of Treatment Not on filedocumented as of this encounter Visit Diagnoses Not on filedocumented in this encounter"
--- OUTSIDE RECORDS SUMMARY | ~2018-10-28 | XMS | Encounter Summary ---
Demographics + + + | Address | [address] | | | [place] [address] | + + + | Home Phone | | + + + | Preferred Language | Unknown | + + + | Marital Status | | + + + | Roman Catholic Affiliation | NON | + + + | Race | White | + + + | Ethnic Group | Not or | + + + Author + + + | Author | [facility] | + + + | Organization | [facility] | + + + | Address | Unknown | + + + | Phone | Unavailable | + + + Support + + + + + | Name | Relationship | Address | Phone | + + + + + | Brandi Boyle | YURIY | [address] | | | | | [place], [place] | | | | | [address] | | + + + + + Care Team Providers + +------+ + | Care Application Analyst Name | Role | Phone | [...] as of this encounter Progress Notes Interface, Knife Sharpener In - 02/19/2006 1:11 AM PDTCLINIC DATE: [...] concerns arise. Juanjose Hayden M.D. / YOLANDA [id number] / [id number] / [id number] / cc: Yobani Millan D.O. [address] [place], [place] [id number] signed by Interface, Knife Sharpener In at 02/19/2006 1:1 1 AM PDTdocumented in this encounter Plan of Treatment Not on filedocumented as of this encounter Visit Diagnoses Not on filedocumented in this encounter
--- OUTSIDE RECORDS SUMMARY | ~2018-10-28 | XMS | Encounter Summary ---
Demographics + + + | Address | [address] | | | [place] [address] | + + + | Home Phone | | + + + | Preferred Language | Unknown | + + + | Marital Status | | + + + | Pentecostalism Affiliation | NON | + + + | Race | White | + + + | Ethnic Group | Not or | + + + Author + + + | Author | [facility] | + + + | Organization | [facility] | + + + | Address | Unknown | + + + | Phone | Unavailable | + + + Support + + + + + | Name | Relationship | Address | Phone | + + + + + | Brandi Boyle | YURIY | [address] | | | | | [place], [place] | | | | | [address] | | + + + + + Care Team Providers + +------+ + | Care Plaster Mold Maker Name | Role | Phone | + [...] [address] | | | | | [facility] | [address], [place] | | | | | Mailcode: [id number] | [address] | | | | | Phys[address] | | | | | | [place], [place] | | | | | | [address] | | | | | | [phone] | | | +--------+ + + + [...] | | + +---------+ + + | [facility] DEPARTMENT OF | | | | [...] + + + + | PRODUCT | [id number] | | [facility] | | | UNIT [...] + | [place] DEPARTMENT OF | [address] | [place] [address] | | | PATHOLOGY | [address] | | | + + + + + | [place] DEPARTMENT OF | [address] | [place] [address] | | | PATHOLOGY | [address] [...] DEPARTMENT OF | [address] | [place] [address] | | | PATHOLOGY | [address] | | | + + + + + | [facility] DEPARTMENT OF | [address] | [place] [address] | | | PATHOLOGY | [address] [...] + + + + | PRODUCT | [id number] | | [facility] | | | UNIT [...] | + + + + + | [facility] | [address] | [place] [address] | | | PATHOLOGY | [address] | | | + + + + + | [facility] | [address] | [place] [address] | | | PATHOLOGY | [address] [...] | | | | | | through [id number] normal. | | | | | | [...] | | + +---------+ + + | [facility] DEPARTMENT OF | | | | | RADIOLOGY | | | | + +---------+ + + documented in this encounter Visit Diagnoses Not on filedocumented in this encounter"
--- OUTSIDE RECORDS SUMMARY | ~2018-10-28 | XMS | Encounter Summary ---
Demographics + + + | Address | [address] | | | [place] [address] | + + + | Home Phone [...] [place], [place] | | | | | [address] | | + + + + + Care Team Providers + +------+ + | Care Group Account Director Name | Role | Phone | + +------+ + PCP | Unavailable | + +------+ + Encounter Details +--------+ + + + + | Date | Type | Department | Care Team | Description | +--------+ + + + + | 03/25/ | Results | [facility] | Steven Price MD | | | 2000 | Only | Center Outpatient | [address] | | | | | Therapy Center [address] | [facility] [place] | | | | | [address] | [address] | | | | | Outpatient Therapy | [phone] | | | | | Center 2nd floor | | | | | | Mailcode: [id number] | | | | | | [facility] [place] | | | | | | [address] | | | | | | [phone] | | | +--------+ + + + [...] + +--------+ + + + | CT LUMBAR SPINE | Routin | 03/25/2001 | | Results for this | | | e | 2:15 PM | | procedure are in the | | | | PDT | | results section. | + +--------+ + + + | FLUOROSCOPY, | Routin | 03/25/2001 | | Results for this | | INDEPENDENT PORT. | e | 11:30 AM | | procedure are in the | | | | PDT | | results section. | + +--------+ + + + documented in this encounter Results CT LUMBAR SPINE (03/25/2001 2:15 PM PDT) + + + + + + | Component | Value | Ref Range | Performed | Pathologist | | | | | At | Signature | + + + + + + | CT LUMBAR | Radiologist 1: BRODIE, | | | | | SPINE | MEHDI H., | | | | | | M.D.-Radiologist 2: | | | | | | ANIKET ADRIAN, | | | | | | M.D.COMPUTED TOMOGRAPHY | | | | | | OF THE LUMBAR SPINE | | | | | | FOLLOWING | | | | | | DISCOGRAPHY:03/25/2001 | | | | | | Dictated 03/26/2001 | | | | | | CLINICAL: Low back | | | | | | pain. TECHNICAL | | | | | | FACTORS: 5-mm | | | | | | contiguous axial imaging | | | | | | of the lumbar spinewas | | | | | | performed to include the | | | | | | L1-2 through L5-S1 disc | | | | | | spaces.Additional 3-mm | | | | | | axial imaging was | | | | | | performed through the | | | | | | levels ofdiscography | | | | | | (lower three disc | | | | | | levels). Sagittal and | | | | | | coronalreformatted | | | | | | images are reviewed. | | | | | | FINDINGS: The T12-L1, | | | | | | L1-2, and L2-3 levels | | | | | | are normal. There | | | | | | iscentral contrast | | | | | | collection in the | | | | | | nucleus pulposus of the | | | | | | L3-4 andL4-5 discs with | | | | | | a normal post | | | | | | discography | | | | | | appearance. The | | | | | | spinalcanal and neural | | | | | | foramen are widely | | | | | | patent at these levels. | | | | | | There is advanced | | | | | | degenerative disc | | | | | | disease at the L5-S1 | | | | | | level withcomplete loss | | | | | | of disc space and vacuum | | | | | | phenomenon | | | | | | present. There | | | | | | isendplate | | | | | | sclerosis. There is | | | | | | adjacent epidural gas | | | | | | likely related tothe | | | | | | procedure. No | | | | | | residual contrast is | | | | | | identified. There | | | | | | aresclerotic | | | | | | hypertrophic facet joint | | | | | | changes at the L5-S1 | | | | | | level whichmildly narrow | | | | | | the neural foramina | | | | | | bilaterally. IMPRESSION: | | | | | | 1. Advanced | | | | | | degenerative disc | | | | | | disease L5-S1 with a | | | | | | "[id number]"appearance | | | | | | . 2. Sclerotic | | | | | | hypertrophic facet | | | | | | arthropathy L5-S1 which | | | | | | mildlynarrows the neural | | | | | | foramina bilaterally. | | | | | | 3. Incidental finding | | | | | | of mild degenerative | | | | | | changes bilateral | | | | | | superiorsacroiliac | | | | | | joints. END OF | | | | | | IMPRESSION: | | | | + + + + + + + + | Specimen | + + | | + + + +---------+ + + | Performing | Address | City/State/Zipcode | Phone Number | | Organization | | | | + +---------+ + + | [facility] DEPARTMENT OF | | | | | RADIOLOGY | | | | + +---------+ + + FLUOROSCOPY, INDEPENDENT PORT. (03/25/2001 11:30 AM PDT) + + + + + [...] | + +---------+ + + | [facility] DEPARTMENT OF | | | | | RADIOLOGY | | | | + +---------+ + + documented in this encounter Visit Diagnoses Not on filedocumented in this encounter
--- OUTSIDE RECORDS SUMMARY | ~2018-10-28 | XMS | Encounter Summary ---
Demographics + + + | Address | [address] | | | [place] [address] | + + + | Home Phone | | + + + | Preferred Language | Unknown | + + + | Marital Status | | + + + | Shinto Affiliation | Unknown | + + + | Race | Unknown | + + + | Ethnic Group | Unknown | + + + Author + + + | Author | [facility] | | | and [place] | + + + | Organization | [facility] | | | [...] Team Providers + +------+ + | Care Medical Underwriter Name | Role | Phone | + [...] | | | | | [address] | [address] [place] | | | | | [place] | [address] | | | | | [address] | | | | | | [phone] | | | +--------+---------+ + + + [...] | | | | | | [place]CR[place] ([id number]) | | | | | + +--------+ [...] my direction according to | | | [facility] conscious sedation protocol. The area for [...]
--- OUTSIDE RECORDS SUMMARY | ~2018-10-28 | XMS | Encounter Summary ---
Demographics + + + | Address | [address] | | | [place] [address] | + + + | Home Phone [...] [place], [place] | | | | | [address] | | + + + + + Care Team Providers + +------+ + | Care Salad Maker Name | Role | Phone | + +------+ + | Yobani Zelaya DO | PCP | | + +------+ + Encounter Details +--------+ + + + + | Date | Type | Department | Care Team | Description | +--------+ + + + + | 03/25/ | Procedure - | | Record, Operation [...] + + | OPERATION RECORD | | 03/25/2001 | | Results for this | | | | | | procedure are in the | | | | | | results section. | + +--------+ + + + documented in this encounter Results OPERATION RECORD (03/25/2001) + + | Transcriptions | + + | Interface, Lens Examiner In - 03/08/2006 1:03 AM PDT | | [place] [address] | | [place], [place] [address] | | [facility]icsOPERATION RECORDMed Rec No.: | | [id number] Date: 03/25/2001Name: Juanjose BoyleCHRIS SURGEON: | | Steven Price M.D.COMMERCIAL DEVELOPMENT MANAGER SURGEON: Zoila Voss | | RemaPREOPERATIVE DIAGNOSIS:Mechanical lumbosacral pain.POSTOPERATIVE | | DIAGNOSIS:Mechanical lumbosacral pain.OPERATIONS PERFORMED:Provocative lumbosacral | | discography and disc stimulation.ANESTHESIA:Local anesthesia with sedation and | | monitoring by Steven Price M.D.delivered by Kelly Morris R.N.FINDINGS:L4-5 | | opening pressures of 32 psi. No complaints of any pain up to apressure of 100 | | psi. L3-4 opening pressure of 22 psi. No pain atpressures up to 100 psi. | | L5-S1 opening pressures of 4 psi associated withpain in the lower back up to a 6-7/10 | | at 20 psi.COMPLICATIONS:None.ESTIMATED BLOOD LOSS:None.DRAINS:None.SPECIMENS | | REMOVED:None.INTRAVENOUS FLUIDS:Lactated Ringer approximately 500 cc.INDICATIONS:. | | Tamar is a 45-year-old gentleman with a history of mechanical low backpain associated | | with degenerative disc disease. He was referred to us byDirk Davis M.D. for | | provocative discography for assessment forlumbosacral fusion. The patient today | | rates is pain as 7/10 in his lowback and a 5/10 at the least. There have been no | | changes in his pain sincehis last visit. He denies any numbness or weakness, and there | | have been nochanges in his ability to urinate or have bowel movements. There is | | a30-40% improvement in his symptoms from his current medication | | management.PROCEDURE:After a detailed discussion of the procedure, alternatives, | | risks, andquestions (PARQ), the patient signed a written consent. A | | 20-gaugeintravenous catheter was placed in his left hand in the holding area, and 2g | | intravenous cefazolin was administered without any reaction one to twohours prior to | | the procedure. The patient was then escorted to the [facility] | | pain management center procedure suite, wherehe positioned himself prone on the | | examination table. All pressure pointswere checked and padded. His back was prepped | | with Hibiclens, alcohol, andDuraPrep. Sterile technique was used during the entire | | procedure. Steriledrapes were applied, and gowns, gloves, and masks were worn by the | | surgeonand the child and youth program assistant surgeon.Fluoroscope was positioned to count the lower thoracic | | and lumbar vertebraeand was then positioned in the left lateral oblique position to | | expose theintersection of the inferior endplate of the L5-S1 disc. A 1% | | lidocaineskin wheal was placed here, and a 20-gauge introducer needle was | | placedthrough that needle.A 22-gauge, 6.5-inch Chiba needle was positioned under | | intermittentfluoroscopic guidance into the intervertebral disc and was then | | furtherpositioned so that the tip was in the geometrical center of the disc. | | Noparesthesias were obtained during the needle placement. The fluoroscopewas | | positioned to indicate the L3-4 intervertebral disc. Again, in asimilar manner, an | | introducer needle was introduced through a skin wheal.A Chiba needle was then placed | | under intermittent fluoroscopy into thegeometric center of the intervertebral disc. | | After that, the procedure wasrepeated for the L3-4 intervertebral disc. Once all | | needle positions wereconfirmed using anteroposterior, as well as lateral and oblique | | views, weproceeded to injection the L4-L5 disc with contrast. The results of | | theinjection can be noted in the findings. After the injection of the L4-5disc, we | | proceeded to inject the L3-4 disc, followed by the L5-S1 disc.The results are noted | | in the findings. The patient's sedation had beenlightened for the injections, and | | the findings included increasing pain onthe injection of L5-S1 intervertebral disc. | | The patient had no pain atL3-4 or L4-5 intervertebral disc injections. At adequate | | clinical andfluoroscopic data was obtained, the needles were removed, and the | | patient'slower back was cleansed.[facility], where he had an | | uneventfulrecovery. The patient was sent to the computerized tomography (CT) scan | | toobtain a CT scan of his intervertebral discs in order to determine furtherplanning. | | The patient tolerated the procedure well and had no apparentcomplications. We will | | review the CT scan when this is done.ATTENDING PHYSICIAN ATTESTATION:Pursuant to | | federal Medicare billing regulations and other insuranceguidelines, I certify that | | Steven Price M.D. was present for the entireprocedure.Zoila Voss M.D. | | M.D.MD Sole/x53D: 03/25/2001T: 03/26/2001cc:Dirk Davis, | | RAHEEM ZELAYA DO[address] [id number]: | |PROCEDURE: | |After a detailed discussion of the procedure, alternatives, risks, and | |questions (PARQ), the patient signed a written consent. A 20-gauge | |intravenous catheter was placed in his left hand in the holding area, and 2 | |g intravenous cefazolin was administered without any reaction one to two | |hours prior to the procedure. The patient was then escorted to the [facility] procedure suite, where | |he positioned himself prone on the examination table. All pressure points | |were checked and padded. His back was prepped with Hibiclens, alcohol, and | |DuraPrep. Sterile technique was used during the entire procedure. Sterile | |drapes were applied, and gowns, gloves, and masks were worn by the surgeon | |and the child and youth program assistant surgeon. | | | |Fluoroscope was positioned to count the lower thoracic and lumbar vertebrae | |and was then positioned in the left lateral oblique position to expose the | |intersection of the inferior endplate of the L5-S1 disc. A 1% lidocaine | |skin wheal was placed here, and a 20-gauge introducer needle was placed | |through that needle. | | | |A 22-gauge, 6.5-inch Chiba needle was positioned under intermittent | |fluoroscopic guidance into the intervertebral disc and was then further | |positioned so that the tip was in the geometrical center of the disc. No | |paresthesias were obtained during the needle placement. The fluoroscope | |was positioned to indicate the L3-4 intervertebral disc. Again, in a | |similar manner, an introducer needle was introduced through a skin wheal. | |A Chiba needle was then placed under intermittent fluoroscopy into the | |geometric center of the intervertebral disc. After that, the procedure was | |repeated for the L3-4 intervertebral disc. Once all needle positions were | |confirmed using anteroposterior, as well as lateral and oblique views, we | |proceeded to injection the L4-L5 disc with contrast. The results of the | |injection can be noted in the findings. After the injection of the L4-5 | |disc, we proceeded to inject the L3-4 disc, followed by the L5-S1 disc. | |The results are noted in the findings. The patient's sedation had been | |lightened for the injections, and the findings included increasing pain on | |the injection of L5-S1 intervertebral disc. The patient had no pain at | |L3-4 or L4-5 intervertebral disc injections. At adequate clinical and | |fluoroscopic data was obtained, the needles were removed, and the patient's | |lower back was cleansed. | | | |He was transferred by stretcher to the [facility] | |pain management center postanesthesia care unit, where he had an uneventful | |recovery. The patient was sent to the computerized tomography (CT) scan to | |obtain a CT scan of his intervertebral discs in order to determine further | |planning. The patient tolerated the procedure well and had no apparent | |complications. We will review the CT scan when this is done. | | | |ATTENDING PHYSICIAN ATTESTATION: | |Pursuant to federal Medicare billing regulations and other insurance | |guidelines, I certify that Steven Price M.D. was present for the entire | |procedure. | | | | | | | |Rema Flores M.D. | | | |MD/x53 | | | | | | | |cc: | | | | | | | | | |Dirk Davis M.D. | | | | | | | | | | | |YOBANI ZELAYA DO | |[address] | |[address] | |[facility] [address] | | | | | |[phone] | | | |CC: | + + documented in this encounter Visit Diagnoses Not on filedocumented in this encounter"
--- OUTSIDE RECORDS SUMMARY | ~2018-10-28 | XMS | Encounter Summary ---
Demographics + + + | Address | [address] | | | [place] [address] | + + + | Home Phone [...] [place], [place] | | | | | [address] | | + + + + + Care Team Providers + +------+ + | Care Packer Denture Name | Role | Phone | + [...] Road | | | | | | [place], [place] | | | | | | [address] | | | +--------+ + + + [...] | + + | 04/29/2001 11:03 AM [facility] Anesthesia PostOp Report | | | | Patient: YOU SHARON Med Rec: [id number] Neil M Bdate: 1955 | | Date/Time Data | | Entered Into [facility] | | Anesth PostOp | | Surgery Date [id number] 04/29/01 11:03 | | Anesthesiologist RHINA [place] [...]
--- OUTSIDE RECORDS SUMMARY | ~2018-10-28 | XMS | Encounter Summary ---
Demographics + + + | Address | [address] | | | [place] [address] | + + + | Home Phone | | + + + | Preferred Language | Unknown | + + + | Marital Status | | + + + | Mosque Affiliation | Unknown | + + + | Race | Unknown | + + + | Ethnic Group | Unknown | + + + Author + + + | Author | [facility] | | | and [place] | + + + | Organization | [facility] | | [...] Team Providers + +------+ + | Care Green Hide Inspector Name | Role | Phone | + +------+ + | Hamzah Zamora PCP | Unavailable | + +------+ + Encounter Details +--------+ + + + + | Date | Type | Department | Care Team | Description | +--------+ + + + + | 08/14/ | Orders Only | [facility] [place] | Nick Ram | | | 2018 | | PHYSIATRY [address] | | | | | [place], | [address] [place] | | | | | [place] [address] | [address] | | | | | [phone] | | | +--------+ + + + [...]
--- OUTSIDE RECORDS SUMMARY | ~2018-10-28 | XMS | Encounter Summary ---
Demographics + + + | Address | [address] | | | [place] [address] | + + + | Home Phone | | + + + | Preferred Language | Unknown | + + + | Marital Status | | + + + | Nondenominational Affiliation | NON | + + + | Race | White | + + + | Ethnic Group | Not or | + + + Author + + + | Author | [facility] | + + + | Organization | [facility] | + + + | Address | Unknown | + + + | Phone | Unavailable | + + + Support + + + + + | Name | Relationship | Address | Phone | + + + + + | Brandi Boyle | YURIY | [address] | | | | | [place], [place] | | | | | [address] | | + + + + + Care Team Providers + +------+ + | Care Top Lift Cutter Name | Role | Phone | + +------+ + | Yobani Millan DO | PCP | | + +------+ + Encounter Details +--------+ + + + + | Date | Type | Department | Care Team | Description | +--------+ + + + + | 05/13/ | Office | [facility] | Note, [...] as of this encounter Progress Notes Interface, Hangar Attendant In - 02/23/2006 3:02 AM PDTCLINIC DATE: 05/13/2001 [facility]IC This is a patient of Dr. Juanjose Hayden. SUBJECTIVE: Mr. Boyle presents to clinic today status post 2 weeks of a posterior lumbar fusion of L5 and S1, a non-segmental spinal fixation at L5-S1 with translaminar screws, a right iliac crest bone graft through a separate incision as well as an anterior lumbar diskectomy at L5-S1, and an anterior lumbar fusion L5-S1 with insertion of prosthetic device Danek LT fusion cage. Mr. Boyle states that his back pain is actually much better; however, his radiculopathy has increased. He states that he has burning down the back of both legs as well as some anterior thigh burning. It is worse on the left than on the right, and it has progressively worsened over the last week. He states that he does have, he believes, some weakness in the left leg, primarily in the thigh region. He denies any bowel or bladder incontinence or any swelling in his lower extremities. He did see Dr. Millan, his primary care physician last week, and Dr. Millan removed the tim in his posterior wound. He was also placed on antibiotics by Dr. Millan for a slight redness around the wound. He is currently using OxyContin 10 mg every 6 hours for pain as well as 1 Vicodin every 3 or 4 hours for pain. He states that this is not relieving his pain at all. The only relief he gets is from walking and hot showers. PHYSICAL EXAMINATION: Today, his wounds are clean, dry, and completely intact. There is no erythema or drainage. He does not appear to have any desiree weakness in his lower extremities. His left great toe has slight weakness compared to the right. There is no swelling or calf pain to palpation. ASSESSMENT AND PLAN: Mr. Boyle is progressing well status post posterior fusion L5-S1, anterior lumbar diskectomy L5-S1, and anterior lumbar fusion L5-S1. It is anticipated that his anterior and posterior thigh and leg burning should progressively improve over the next few weeks. I suggested that he continue doing as much walking as he can tolerate as well as using hot showers and ice, whichever feels better to him over his lower back. I suggested that we change his medication regime a bit with that he is taking 20 mg to 40 mg of OxyContin every 12 hours as well as supplementing with some [id number] 4 times a day. He can continue to use Vicodin as needed for breakthrough. If this does not adequately control his pain, he does have a few oxycodone left, 5 mg tablets which he can use for his breakthrough pain. He was given new prescriptions today; one for Soma, quantity 60 with no refills as well as OxyContin 40 mg tablets, quantity 30 with no refills. He will contact the clinic next week to report on how he is doing and whether this mediation change has helped him at all. If he does seem to improve in the next few weeks, then we will have him follow up with his regular visit with Dr. Hayden in 4 weeks. At that 4-week visit, we should obtain AP and lateral L-spine films. Luisito Karimi. ANDRES / YOLANDA [id number] / [id number] / [id number] / Tdocumented in this encounter Plan of Treatment Not on filedocumented as of this encounter Visit Diagnoses Not on filedocumented in this encounter"
--- OUTSIDE RECORDS SUMMARY | ~2018-10-28 | XMS | Encounter Summary ---
Demographics + + + | Address | [address] | | | [place] [address] | + + + | Home Phone | | + + + | Preferred Language | Unknown | + + + | Marital Status | | + + + | Religion Affiliation | NON | + + + | Race | White | + + + | Ethnic Group | Not or | + + + Author + + + | Author | [facility] | + + + | Organization | [facility] | + + + | Address | Unknown | + + + | Phone | Unavailable | + + + Support + + + + + | Name | Relationship | Address | Phone | + + + + + | Brandi Boyle | YURIY | [address] | | | | | [place], [place] | | | | | [address] | | + + + + + Care Team Providers + +------+ + | Care Industrial Sales Representative Name | Role | Phone | [...] as of this encounter Progress Notes Interface, Archery Instructor In - 03/03/2006 10:28 AM PDTCLINIC DATE: [...] radiculopathy. Bubba Karimi M.D. ANDRES / YOLANDA [id number] / [id number] / [id number] / [id number] Tdocumented in this encounter Plan of Treatment Not on filedocumented as of this encounter Visit Diagnoses Not on filedocumented in this encounter"
--- OUTSIDE RECORDS SUMMARY | ~2018-10-28 | XMS | Encounter Summary ---
Demographics + + + | Address | [address] | | | [place] [address] | + + + | Home Phone | | + + + | Preferred Language | Unknown | + + + | Marital Status | | + + + | Presybeterian Affiliation | NON | + + + | Race | White | + + + | Ethnic Group | Not or | + + + Author + + + | Author | [facility] | + + + | Organization | [facility] | + + + | Address | Unknown | + + + | Phone | Unavailable | + + + Support + + + + + | Name | Relationship | Address | Phone | + + + + + | Brandi Boyle | YURIY | [address] | | | | | [place], [place] | | | | | [address] | | + + + + + Care Team Providers + +------+ + | Care Manager Managed Care Name | Role | Phone | + [...] | | | | | n | [facility] Mailcode: | | | | | | [address] [place], [place] | | | | | | [address] | | | | | | [phone] | | | +--------+ + + + [...]
--- OUTSIDE RECORDS SUMMARY | ~2018-10-28 | XMS | Encounter Summary ---
Demographics + + + | Address | [address] | | | [place] [address] | + + + | Home Phone | | + + + | Preferred Language | Unknown | + + + | Marital Status | | + + + | Orthodox Affiliation | NON | + + + | Race | White | + + + | Ethnic Group | Not or | + + + Author + + + | Author | [facility] | + + + | Organization | [facility] | + + + | Address | Unknown | + + + | Phone | Unavailable | + + + Support + + + + + | Name | Relationship | Address | Phone | + + + + + | Brandi Boyle | YURIY | [address] | | | | | [place], [place] | | | | | [address] | | + + + + + Care Team Providers + +------+ + | Care Navy Airspace Officer Name | Role | Phone | + +------+ + | Yobani iMllan DO | PCP | | + +------+ [...] as of this encounter Progress Notes Interface, B2B Sales Executive In - 02/03/2006 3:12 AM PDTCLINIC DATE: [...] the lumbar spine. Juanjose Hayden M.D. / [id number] / [id number] / [id number] / C: 10/21/2001 [facility] cc: Yobani Millan D.O. [address] [place], [place] [id number] signed by Interface, B2B Sales Executive In at 02/03/2006 3:1 2 AM PDTdocumented in this encounter Plan of Treatment Not on filedocumented as of this encounter Visit Diagnoses Not on filedocumented in this encounter"
--- OUTSIDE RECORDS SUMMARY | ~2018-10-28 | XMS | Encounter Summary ---
Demographics + + + | Address | [address] | | | [place] [address] | + + + | Home Phone [...] [place], [place] | | | | | [address] | | + + + + + Care Team Providers + +------+ + | Care It Analyst Name | Role | Phone | + +------+ + PCP | Unavailable | + +------+ + Encounter Details +--------+ + + + + | Date | Type | Department | Care Team | Description | +--------+ + + + + | 10/25/ | Office | [facility] | Note, Orthopedics | Progress Note | | 2004 | Visit-Trans | | Clinic | | | | cribed [...] as of this encounter Progress Notes Interface, Apparel Stock Checker In - 12/31/2004 6:28 AM PDTClinic Date: 10/26/2003 Orthopedic Subjective: Mr. Boyle returns. He has had persistent lower extremity pain. He is now having new left-sided leg pain as well as buttock and thigh pain. He has never returned to work. He has undergone a recent CT myelogram. Radiologic Data: The CT scan demonstrates an L1-L2 left-sided disk bulge with lateral recess stenosis. MRI demonstrates same finding. I had reviewed this study previously. Assessment and Plan: He has tried physical therapy and is taking Vicodin and muscle relaxants. At this point, I believe that those are his best options. Should this come to surgery, I would recommend a simple laminotomy without fusion. However, given his lack of relief following his fusion, he is not anxious to try for this surgery, and I am in agreement with this plan. I have offered further followup but at this point, I will simply see him as needed should further concerns arise. Juanjose Hayden M.D. / [id number] / [id number] / [id number] / cc: Yobani Millan D.O. [address] [place], [place] [id number] signed by Interface, Apparel Stock Checker In at 12/31/2004 6:2 8 AM PDTdocumented in this encounter Plan of Treatment Not on filedocumented as of this encounter Visit Diagnoses Not on filedocumented in this encounter"
--- OUTSIDE RECORDS SUMMARY | ~2018-10-28 | XMS | Encounter Summary ---
Demographics + + + | Address | [address] | | | [place] [address] | + + + | Home Phone [...] [place], [place] | | | | | [address] | | + + + + + Care Team Providers + +------+ + | Care Instructor Apparel Manufacture Name | Role | Phone | + [...] as of this encounter Progress Notes Interface, Regional Director Of Admissions In - 02/19/2006 1:11 AM PDTCLINIC DATE: [...] I think this can be done in [place], and the results can simply be mailed to me in order to save them a trip down. I will schedule a return appointment in 6 weeks. On his return, we shall obtain AP, flexion, and extension views of the lumbar spine. Juanjose Hayden M.D. / YOLANDA [id number] / [id number] / [id number] / cc: Yobani Millan D.O. [address] [place], [place] [id number] signed by Interface, Regional Director Of Admissions In at 02/19/2006 1:1 1 AM PDTdocumented in this encounter Plan of Treatment Not on filedocumented as of this encounter Visit Diagnoses Not on filedocumented in this encounter"
--- OUTSIDE RECORDS SUMMARY | ~2018-10-28 | XMS | Encounter Summary ---
Demographics + + + | Address | [address] | | | [place] [address] | + + + | Home Phone | | + + + | Preferred Language | Unknown | + + + | Marital Status | | + + + | Scientology Affiliation | NON | + + + [...] [place], [place] | | | | | [address] | | + + + + + Care Team Providers + +------+ + | Care Implementation Services Analyst Name | Role | Phone | [...] | Transcriptions | + + | Interface, Car Salesperson In - 03/03/2006 10:28 AM PDT | | [place] [address] | | [place], [place] [address] | | [facility] No[facility] | | [id number] Date: 04/28/2001Name: Juanjose Boyle SURGEON: | | Osorio Bacon M.D.GRAIN THRESHER(S): Ronald Alcazar, | | RemaPREOPERATIVE DIAGNOSIS(ES):L5-S1 degenerative [...] Unit in satisfactory condition.Osorio Bacon, | | NANCIE/X65D:04/28/2001T:04/29/[id number] | | | |SPECIMEN(S): | |See below. [...] | |JM/X65 | | | | | |[id number] | + + | Interface, Car Salesperson In - 03/03/2006 10:28 AM PDT | | [address] | | [place], [place] [address] [place] | | [facility]OPER[facility] RECORDMed Rec No.: [id number] Date: | | [...] Hayden M.D.AL/Neisha: 04/30/2001T: | | 05/01/2001 3:52 [id number] | |At this point, we copiously irrigated [...] |AL/remedios | | | | P | |[id number] | + + documented in this encounter Visit Diagnoses Not on filedocumented in this encounter"
--- OUTSIDE RECORDS SUMMARY | ~2018-10-28 | XMS | Encounter Summary ---
Demographics + + + | Address | [address] | | | [place] [address] | + + + | Home Phone | | + + + | Preferred Language | Unknown | + + + | Marital Status | | + + + | Catholic Affiliation | NON | + + [...] [place], [place] | | | | | [address] | | + + + + + Care Team Providers + +------+ + | Care Movie Shot Cameraman Name | Role | Phone | + [...] as of this encounter Discharge Summaries Interface, Aquatic Performer In - 03/03/2006 10:[address] [address] [facility] MEDICAL SUMMARY OF HOSPITALIZATION Med Rec No: [...] MD (ALT) [address] [place] [address] [id number] signed by Interface, Aquatic Performer In at 03/03/2006 10:[address] [facility] in this encounter Plan of Treatment Not on filedocumented as of this encounter Visit Diagnoses Not on filedocumented in this encounter"
--- OUTSIDE RECORDS SUMMARY | ~2018-10-28 | XMS | Encounter Summary ---
Demographics + + + | Address | [address] | | | [place] [address] | + + + | Home Phone [...] [place], [place] | | | | | [address] | | + + + + + Care Team Providers + +------+ + | Care Informatica Name | Role | Phone | + [...] W | | | | ON | [facility] 4th Floor [address] | | | | | [address] | Road [place], [place] | | | | | Code: [address] | [address] | | | | | for Health and | | | | | | Healing,4th Floor | | | | | | [place], [place] | | | | | | [address] | | | | | | [phone] | | | +--------+ + + + [...]
--- OUTSIDE RECORDS SUMMARY | ~2018-10-28 | XMS | Encounter Summary ---
Demographics + + + | Address | [address] | | | [place] [address] | + + + | Home Phone | | + + + | Preferred Language | Unknown | + + + | Marital Status | | + + + | Yazidi Affiliation | NON | + + + [...] [place], [place] | | | | | [address] | | + + + + + Care Team Providers + +------+ + | Care Presentation Manager Name | Role | Phone | [...] as of this encounter Progress Notes Interface, Stripper And Printer In - 02/19/2006 1:11 AM PDTCLINIC DATE: 05/29/2001 ORTHOPEDIC CLINIC The patient phoned today requesting refill on his Soma. This is okayed today by Cristine Kwon, physician's academic support assistant, for Soma #[phone] which was phoned into [employer] at [phone]. Audelia Page M.D. / YOLANDA [id number] / [id number] / [id number] / Tdocumented in this encounter Plan of Treatment Not on filedocumented as of this encounter Visit Diagnoses Not on filedocumented in this encounter"
--- OUTSIDE RECORDS SUMMARY | ~2018-10-28 | XMS | Encounter Summary ---
Demographics + + + | Address | [address] | | | [place] [address] | + + + | Home Phone [...] [place], [place] | | | | | [address] | | + + + + + Care Team Providers + +------+ + | Care Zone Maintenance Technician Name | Role | Phone | [...] | Transcriptions | + + | Interface, Student Financial Services Counselor In - 03/03/2006 10:28 AM PDT | | [place] [address] [address] | | [place], [place] [address] | | [facility] RECORDMed Rec No.: | | [id number] Date: 04/28/2001Name: Juanjose Boyle SURGEON: | | Osorio Bacon M.D.CHRISTMAS TREE CONTRACTOR(S): Ronald Alcazar, | | RemaPREOPERATIVE DIAGNOSIS(ES):L5-S1 degenerative [...] Unit in satisfactory condition.Osorio Bacon, | | NANCIE/X65D:04/28/2001T:04/29/[id number] | | | |SPECIMEN(S): | |See below. [...] | |JM/X65 | | | | | |[id number] | + + | Interface, Student Financial Services Counselor In - 03/03/2006 10:28 AM PDT | | [address] | | [place], [place] [address] [place] | | [facility] Rec No.: [id number] Date: | | [...] Hayden M.D.AL/Neisha: 04/30/2001T: | | 05/01/2001 3:52 [id number] | |At this point, we copiously irrigated [...] |AL/remedios | | | | P | |[id number] | + + documented in this encounter Visit Diagnoses Not on filedocumented in this encounter"
--- OUTSIDE RECORDS SUMMARY | ~2018-10-28 | XMS | Encounter Summary ---
Demographics + + + | Address | [address] | | | [place] [address] | + + + | Home Phone | | + + + | Preferred Language | Unknown | + + + | Marital Status | | + + + | Episcopal Affiliation | Unknown | + + + | Race | Unknown | + + + | Ethnic Group | Unknown | + + + Author + + + | Author | [facility] | | | and [place] | + + + | Organization | [facility] | | | [...] Team Providers + +------+ + | Care Lidding Machine Operator Name | Role | Phone [...] [address] | Assistance | | | | [address] [place], | [place], [place] | | | | | [place] [address] | [address] | | | | | [phone] | | | +--------+ + + + [...]
--- OUTSIDE RECORDS SUMMARY | ~2018-10-28 | XMS | Encounter Summary ---
Demographics + + + | Address | [address] | | | [place] [address] | + + + | Home Phone | | + + + | Preferred Language | Unknown | + + + | Marital Status | | + + + | Confucianism Affiliation | Unknown | + + + | Race | Unknown | + + + | Ethnic Group | Unknown | + + + Author + + + | Author | [facility] | | | and [place] | + + + | Organization | [facility] | | | [...] Team Providers + +------+ + | Care Boxcar Weigher Name | Role | Phone | + [...] [address] | | | | | [place], | [address] [place] | | | | | [place] [address] | [address] | | | | | [phone] | | | +--------+ + + + [...]
--- OUTSIDE RECORDS SUMMARY | ~2018-10-28 | XMS | Encounter Summary ---
Demographics + + + | Address | [address] | | | [place] [address] | + + + | Home Phone | | + + + | Preferred Language | Unknown | + + + | Marital Status | | + + + | Congregation Affiliation | Unknown | + + + | Race | Unknown | + + + | Ethnic Group | Unknown | + + + Author + + + | Author | [facility] | | | and [place] | + + + | Organization | [facility] | | | [...] Team Providers + +------+ + | Care Quill Collector Name | Role | Phone | [...] | | bilateral | [place] | [address] | | | | | sciatica | [address] | Phone: | | | | | S/P lumbar | Phone: | [phone] | | | | | fusion | [phone] | Fax: | | | | | 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
--- OUTSIDE RECORDS SUMMARY | ~2018-10-28 | XMS | Clinical Summary ---
Demographics + + + | Address | [address] | | | [place] [address] | + + + | Home Phone | | + + + | Preferred Language | Unknown | + + + | Marital Status | | + + + | Evangelical Affiliation | NON | + + + [...] [place] | | | | | [address] | | + + + + + Care Team Providers + +------+ + | Care Meter Reader Inspector Name | Role | Phone | + +------+ + | Yobani Millan DO | PP | | + +------+ + Source Comments JOSAFAT is fully live on both [facility] Ambulatory and [facility] InPatient.[facility] Allergies No Known Allergies Medications + + [...]
--- OUTSIDE RECORDS SUMMARY | ~2018-10-28 | XMS | Encounter Summary ---
Demographics + + + | Address | [address] | | | [place] [address] | + + + | Home Phone | | + + + | Preferred Language | Unknown | + + + | Marital Status | | + + + | Sabianism Affiliation | NON | + + + [...] [place], [place] | | | | | [address] | | + + + + + Care Team Providers + +------+ + | Care Stevedore Hold Name | Role | Phone | + [...] as of this encounter Progress Notes Interface, Home Therapy Clinician In - 03/08/2006 1:03 AM PDT [place] [address] [address] or March 18, 2001 Dirk Davis M.D. [facility] Department of Neurosurgery -3200 RE: SHARON ORTA MR #: [id number] Dear Dr. Davis: Thank you for consulting the [facility] regarding Mr. Sharon Orta. [...] subsequent CT. Thanks again for consulting the [facility] regarding this patient. Please feel free to contact me for any further information on this assessment. I will keep you update regarding his care here. Very truly yours, Steven Price M.D. [facility] MAYRA / YOLANDA [id number] / [id number] / [id number] / cc: Yobani Millan D.O. [address] [place] [address] Sharon Hayden M.D. [facility] Department of Orthopedic Surgery [phone] [id number] signed by Interface, Home Therapy Clinician In at 03/08/2006 1:03 AM PDTdocume nted in this encounter Plan of Treatment Not on filedocumented as of this encounter Visit Diagnoses Not on filedocumented in this encounter"
--- OUTSIDE RECORDS SUMMARY | ~2018-10-28 | XMS | Clinical Summary ---
Demographics + + + | Address | [address] | | | [place] [address] | + + + | Home Phone [...] [place] | | | | | [address] | | + + + + + Care Team Providers + +------+ + | Care Mixer Tender Name | Role | Phone | + +------+ + | Yobani Millan DO | PP | | + +------+ + Source Comments JOSAFAT is fully live on both [facility] Amb[facility] and [facility] InPatient.[facility] Allergies No Known Allergies Medications + [...]
--- OUTSIDE RECORDS SUMMARY | ~2018-10-28 | XMS | Encounter Summary ---
Demographics + + + | Address | [address] | | | [place] [address] | + + + | Home Phone [...] [place], [place] | | | | | [address] | | + + + + + Care Team Providers + +------+ + | Care Digital Data Analyst Name | Role | Phone | [...] as of this encounter Discharge Summaries Interface, Model Maker Firearms In - 03/03/2006 10:[address] [address] [facility] MEDICAL SUMMARY OF HOSPITALIZATION Med Rec No: [...] MD (ALT) [address] [place] [address] [id number] signed by Interface, Model Maker Firearms In at 03/03/2006 10:28 AM [facility] this [facility] Plan of Treatment Not on filedocumented as of this encounter Visit Diagnoses Not on filedocumented in this encounter"
--- OUTSIDE RECORDS SUMMARY | ~2018-10-28 | XMS | Encounter Summary ---
Demographics + + + | Address | [address] | | | [place] [address] | + + + | Home Phone | | + + + | Preferred Language | Unknown | + + + | Marital Status | | + + + | Taoist Affiliation | NON | + + + [...] [place], [place] | | | | | [address] | | + + + + + Care Team Providers + +------+ + | Care Receiver Name | Role | Phone | + [...] as of this encounter Progress Notes Interface, Office Machine Inspector In - 02/23/2006 3:02 AM PDTCLINIC DATE: [...] hours as well as supplementing with some [id number] 4 times a day. He can continue [...] L-spine films. Luisito Karimi. ANDRES / YOLANDA [id number] / [id number] / [id number] / Tdocumented in this encounter Plan of Treatment Not on filedocumented as of this encounter Visit Diagnoses Not on filedocumented in this encounter"
--- OUTSIDE RECORDS SUMMARY | ~2018-10-28 | XMS | Encounter Summary ---
Demographics + + + | Address | [address] | | | [place] [address] | + + + | Home Phone | | + + + | Preferred Language | Unknown | + + + | Marital Status | | + + + | Holiness Affiliation | Unknown | + + + | Race | Unknown | + + + | Ethnic Group | Unknown | + + + Author + + + | Author | [facility] | | | and [place] | + + + | Organization | [facility] | | | [...] Team Providers + +------+ + | Care Skate Boarder Name | Role | Phone | + [...] | | bilateral | [place] | [address] | | | | | sciatica | [address] | Phone: | | | | | S/P lumbar | Phone: | [phone] | | | | | fusion | [phone] | Fax: | | | | | 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
--- OUTSIDE RECORDS SUMMARY | ~2018-10-28 | XMS | Encounter Summary ---
Demographics + + + | Address | [address] | | | [place] [address] | + + + | Home Phone | | + + + | Preferred Language | Unknown | + + + | Marital Status | | + + + | Faith Affiliation | NON | + + + | Race | White | + + + | Ethnic Group | Not or | + + + Author + + + | Author | [facility] | + + + | Organization | [facility] | + + + | Address | Unknown | + + + | Phone | Unavailable | + + + Support + + + + + | Name | Relationship | Address | Phone | + + + + + | Brandi Boyle | YURIY | [address] | | | | | [place], [place] | | | | | [address] | | + + + + + Care Team Providers + +------+ + | Care Pediatric Physician Name | Role | Phone | + [...] as of this encounter Progress Notes Interface, Cider Maker In - 02/19/2006 1:11 AM PDTCLINIC DATE: 05/29/[facility] The patient phoned today requesting refill on his Soma. This is okayed today by Cristine Kwon, physician's title i assistant, for Soma #[id number] which was phoned into [employer] at [phone]. Audelia Page M.D. / YOLANDA [id number] / [id number] / [id number] / Tdocumented in this encounter Plan of Treatment Not on filedocumented as of this encounter Visit Diagnoses Not on filedocumented in this encounter"
--- OUTSIDE RECORDS SUMMARY | ~2018-10-28 | XMS | Encounter Summary ---
Demographics + + + | Address | [address] | | | [place] [address] | + + + | Home Phone [...] [place], [place] | | | | | [address] | | + + + + + Care Team Providers + +------+ + | Care Sow Manager Name | Role | Phone | [...] as of this encounter Progress Notes Interface, Biomass Power Plant Superintendent In - 03/08/2006 1:03 AM PDT [place] [address] [address] or March 18, 2001 Dirk Davis M.D. [facility] Department of Neurosurgery -3200 RE: SHARON ORTA MR #: [id number] Dear Dr. Davis: Thank you for consulting the [facility] Pain Management Center regarding Mr. Sharon Orta. [...] subsequent CT. Thanks again for consulting the [facility] Pain Management Center regarding this patient. Please feel free to contact me for any further information on this assessment. I will keep you update regarding his care here. Very truly yours, Steven Price M.D. [facility] Pain Management Center MAYRA / YOLANDA [id number] / [id number] / [id number] / cc: Yobani Millan D.O. [address] [place] [address] Sharon Hayden M.D. [facility] Department of Orthopedic Surgery [id number] signed by Interface, Biomass Power Plant Superintendent In at 03/08/2006 1:03 AM PDTdocume nted in this encounter Plan of Treatment Not on filedocumented as of this encounter Visit Diagnoses Not on filedocumented in this encounter"
--- OUTSIDE RECORDS SUMMARY | ~2018-10-28 | XMS | Encounter Summary ---
Demographics + + + | Address | [address] | | | [place] [address] | + + + | Home Phone | | + + + | Preferred Language | Unknown | + + + | Marital Status | | + + + | Hinduism Affiliation | NON | + + + | Race | White | + + + | Ethnic Group | Not or | + + + Author + + + | Author | [facility] | + + + | Organization | [facility] | + + + [...] [place], [place] | | | | | [address] | | + + + + + Care Team Providers + +------+ + | Care Utility Accounts Director Name | Role | Phone | [...] as of this encounter Progress Notes Interface, Welder Apprentice Gas In - 12/31/2004 6:28 AM PDTClinic Date: [...] further concerns arise. Juanjose Hayden M.D. / [id number] / [id number] / [id number] / cc: Yobani Millan D.O. [address] [place], [place] [id number] signed by Interface, Welder Apprentice Gas In at 12/31/2004 6:2 8 AM PDTdocumented in this encounter Plan of Treatment Not on filedocumented as of this encounter Visit Diagnoses Not on filedocumented in this encounter"
--- OUTSIDE RECORDS SUMMARY | ~2018-10-28 | XMS | Encounter Summary ---
Demographics + + + | Address | [address] | | | [place] [address] | + + + | Home Phone | | + + + | Preferred Language | Unknown | + + + | Marital Status | Unknown | + + + | Restorationist Affiliation | Unknown | + + + | Race | Unknown | + + + | Ethnic Group | Unknown | + + + Author + + + | Author | [email or web address] | + + + | Organization | [facility] | + + + | Address | Unknown | + + + | Phone | Unavailable | + + + Care Team Providers + +------+ + | Care Production Quality Manager Name | Role | Phone | + +------+ + PCP | Unavailable | + +------+ + Encounter Details +--------+ + + + + | Date | Type | Department | Care Team | Description | +--------+ + + + + | 10/21/ | Lab | [facility] | [facility] | | | 2018 | Requisition | [address] | A, Die Cleaner | | | | | [place] [address] | | | | | | [phone] | | | +--------+ + + + [...]
--- OUTSIDE RECORDS SUMMARY | ~2018-10-28 | XMS | Encounter Summary ---
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 There have been no other complaints of [...] as well. Juanjose Hayden M.D. / YOLANDA [id number] / [id number] / [id number] / cc: Yobani Millan D.O. 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 Rema Flores M.D. Psychological Operations, Department of Anesthesiology [facility] / YOLANDA [id number] / [id number] / [id number] / cc: Yobani Millan M.D. [address] [place] [address] Dirk Davis M.D. [facility] Neurosurgery [id number] Juanjose Hayden M.D. [facility] Orthopedics [id number] signed by Interface, Marketing Designer In at 03/08/2006 1:03 AM PDTdocume nted in this encounter Plan of Treatment Not on filedocumented as of this encounter Visit Diagnoses Not on filedocumented in this encounter
--- OUTSIDE RECORDS SUMMARY | ~2018-10-28 | XMS | Encounter Summary ---
Demographics + + + | Address | [address] | | | [place] [address] | + + + | Home Phone [...] [place], [place] | | | | | [address] | | + + + + + Care Team Providers + +------+ + | Care School Director Name | Role | Phone | [...] as of this encounter Progress Notes Interface, Television Specialist In - 02/23/2006 3:02 AM PDTCLINIC DATE: 05/08/2001 [facility] The patient called for a refill on his oxycodone. The prescription was mailed to patient's home address for oxycodone 5 mg 1-2 tablets p.o. q.4-6h. p.r.n. pain, no refills. This was approved by Melanie Kwon. A prescription for Tylenol No. 3, quantity of 60, 1-2 tablets p.o. q.4-6h. p.r.n. pain was called into [facility] at [phone]. Maria Eugenia Roche dictating for: CHENCHO Karimi MM / [id number] / [id number] / [id number] / [id number] C: 05/12/2001 hkh A M PDTdocumented in this encounter Plan of Treatment Not on filedocumented as of this encounter Visit Diagnoses Not on filedocumented in this encounter"
--- OUTSIDE RECORDS SUMMARY | ~2018-10-28 | XMS | Encounter Summary ---
Demographics + + + | Address | [address] | | | [place] [address] | + + + | Home Phone | | + + + | Preferred Language | Unknown | + + + | Marital Status | | + + + | Restorationism Affiliation | NON | + + + | Race | White | + + + | Ethnic Group | Not or | + + + Author + + + | Author | [facility] | + + + | Organization | [facility] | + + + | Address | Unknown | + + + | Phone | Unavailable | + + + Support + + + + + | Name | Relationship | Address | Phone | + + + + + | Brandi Boyle | YURIY | [address] | | | | | [place], [place] | | | | | [address] | | + + + + + Care Team Providers + +------+ + | Care Gis Programmer Name | Role | Phone | [...] as of this encounter Progress Notes Interface, Co Op In - 03/08/2006 1:03 AM PDTCLINIC DATE: [...] 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 There have been no other complaints of [...] as well. Juanjose Hayden M.D. / YOLANDA [id number] / [id number] / [id number] / cc: Yobani Millan D.O. 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 Rema Flores M.D. Assembler Faucets, Department of Anesthesiology [facility] Pain [facility] / YOLANDA [id number] / [id number] / [id number] / cc: Yobani Millan M.D. [address] [place] [address] Dirk Davis M.D. [facility] Neurosurgery [id number] Juanjose Hayden M.D. [facility] Orthopedics [id number] signed by Interface, Co Op In at 03/08/2006 1:03 AM PDTdocume nted in this encounter Plan of Treatment Not on filedocumented as of this encounter Visit Diagnoses Not on filedocumented in this encounter
--- OUTSIDE RECORDS SUMMARY | ~2018-10-28 | XMS | Encounter Summary ---
Demographics + + + | Address | [address] | | | [place] [address] | + + + | Home Phone | | + + + | Preferred Language | Unknown | + + + | Marital Status | | + + + | Orthodoxy Affiliation | NON | + + + | Race | White | + + + | Ethnic Group | Not or | + + + Author + + + | Author | [facility] | + + + | Organization | [facility] | + + + | Address | Unknown | + + + | Phone | Unavailable | + + + Support + + + + + | Name | Relationship | Address | Phone | + + + + + | Brandi Boyle | YURIY | [address] | | | | | [place], [place] | | | | | [address] | | + + + + + Care Team Providers + +------+ + | Care Glue Spreading Machine Operator Name | Role | Phone [...] | | | | | Therapy Center [address] | [facility] [place] | | | | | [address] | [address] | | | | | Outpatient Therapy | [phone] | | | | | Center 2nd floor | | | | | | Mailcode: [id number] | | | | | | [facility] [place] | | | | | | [address] | | | | | | [phone] | | | +--------+ + + + [...] a | | | | | | "[id number]"appearance | | | | | | . [...] | | + +---------+ + + | [facility] DEPARTMENT OF | | | | [...] | | + +---------+ + + | [facility] DEPARTMENT OF | | | | | RADIOLOGY | | | | + +---------+ + + documented in this encounter Visit Diagnoses Not on filedocumented in this encounter
--- OUTSIDE RECORDS SUMMARY | ~2018-10-28 | XMS | Encounter Summary ---
Demographics + + + | Address | [address] | | | [place] [address] | + + + | Home Phone [...] [place], [place] | | | | | [address] | | + + + + + Care Team Providers + +------+ + | Care Chartered Wealth Manager Name | Role | Phone | [...] [address] | | | | | [facility] | [address] [place], [place] | | | | | Mailcode: [id number] | [address] | | | | | Physician's Praneeth | | | | | | [place], [place] | | | | | | [address] | | | | | | [phone] | | | +--------+ + + + [...] | | + +---------+ + + | [facility] DEPARTMENT OF | | | | [...] + + + + | PRODUCT | [id number] | | [facility] | | | UNIT [...] + | [place] DEPARTMENT OF | [address] | [place] [address] | | | PATHOLOGY | [address] | | | + + + + + | [place] DEPARTMENT OF | [address] | [place] [address] | | | PATHOLOGY | [address] [...] DEPARTMENT OF | [address] | [place] [address] | | | PATHOLOGY | [address] | | | + + + + + | [facility] DEPARTMENT OF | [address] | [place] [address] | | | PATHOLOGY | [address] [...] + + + + | PRODUCT | [id number] | | [facility] | | | UNIT [...] | + + + + + | [facility] | [address] | [place] [address] | | | PATHOLOGY | [address] | | | + + + + + | [facility] | [address] | [place] [address] | | | PATHOLOGY | [address] [...] | | | | | | through [employer] normal. | | | | | | [...] | | + +---------+ + + | [facility] DEPARTMENT OF | | | | | RADIOLOGY | | | | + +---------+ + + documented in this encounter Visit Diagnoses Not on filedocumented in this encounter"
--- OUTSIDE RECORDS SUMMARY | ~2018-10-28 | XMS | Encounter Summary ---
Demographics + + + | Address | [address] | | | [place] [address] | + + + | Home Phone | | + + + | Preferred Language | Unknown | + + + | Marital Status | | + + + | Muslim Affiliation | NON | + + + [...] [place], [place] | | | | | [address] | | + + + + + Care Team Providers + +------+ + | Care Special Client Bus Driver Name | Role | Phone | [...] | Transcriptions | + + | Interface, Hoop Maker In - 03/08/2006 1:03 AM PDT | | [place] [address] [address] | | [place], [place] [address] | | [facility] Center[facility]ATION RECORDMed Rec No.: | | [id number] Date: 03/25/2001Name: Juanjose BoyleCHRIS SURGEON: | | Steven Price M.D.MARGARINE MAKER SURGEON: Zoila Voss | | RemaPREOPERATIVE DIAGNOSIS:Mechanical [...] The patient was then escorted to the [facility] | | pain management center procedure suite, wherehe positioned himself prone on the | | examination table. All pressure pointswere checked and padded. His back was prepped | | with Hibiclens, alcohol, andDuraPrep. Sterile technique was used during the entire | | procedure. Steriledrapes were applied, and gowns, gloves, and masks were worn by the | | surgeonand the commercial lines assistant surgeon.Fluoroscope was positioned to count the [...] cleansed.[facility], where he had [...] Davis, | | RAHEEM ZELAYA DO[address] [id number]: | |PROCEDURE: | |After a detailed discussion [...] The patient was then escorted to the [facility], where | |he positioned himself prone on the examination table. All pressure points | |were checked and padded. His back was prepped with Hibiclens, alcohol, and | |DuraPrep. Sterile technique was used during the entire procedure. Sterile | |drapes were applied, and gowns, gloves, and masks were worn by the surgeon | |and the commercial lines assistant surgeon. | | | |Fluoroscope was [...] |He was transferred by stretcher to the [facility] | |pain management center postanesthesia care unit, [...] | | | | | | | |YOABNI ZELAYA DO | |[address] | |[address] | |[facility] [address] | | | | | |[phone] | | | |CC: | + + documented in this encounter Visit Diagnoses Not on filedocumented in this encounter"
--- OUTSIDE RECORDS SUMMARY | ~2018-10-28 | XMS | Encounter Summary ---
Demographics + + + | Address | [address] | | | [place] [address] | + + + | Home Phone | | + + + | Preferred Language | Unknown | + + + | Marital Status | | + + + | Synagogue Affiliation | NON | + + + [...] [place], [place] | | | | | [address] | | + + + + + Care Team Providers + +------+ + | Care Mail Reader Name | Role | Phone | + [...] [address] | | | | | [facility] | [address] [place], [place] | | | | | Mailcode: [id number] | [address] | | | | | Physician's Praneeth | | | | | | [place], [place] | | | | | | [address] | | | | | | [phone] | | | +--------+ + + + [...] | | + +---------+ + + | [facility] DEPARTMENT OF | | | | | RADIOLOGY | | | | + +---------+ + + documented in this encounter Visit Diagnoses Not on filedocumented in this encounter"
--- OUTSIDE RECORDS SUMMARY | ~2018-10-28 | XMS | Encounter Summary ---
Demographics + + + | Address | [address] | | | [place] [address] | + + + | Home Phone [...] [place], [place] | | | | | [address] | | + + + + + Care Team Providers + +------+ + | Care Laundry Equipment Operator Name | Role | Phone | [...] [address] | | | | | [facility] | [address] [place], [place] | | | | | Mailcode: [id number] | [address] | | | | | Physician's Praneeth | | | | | | [place], [place] | | | | | | [address] | | | | | | [phone] | | | +--------+ + + + [...] | | + +---------+ + + | [facility] DEPARTMENT OF | | | | | RADIOLOGY | | | | + +---------+ + + documented in this encounter Visit Diagnoses Not on filedocumented in this encounter"
--- OUTSIDE RECORDS SUMMARY | ~2018-10-28 | XMS | Encounter Summary ---
Demographics + + + | Address | [address] | | | [place] [address] | + + + | Home Phone | | + + + | Preferred Language | Unknown | + + + | Marital Status | | + + + | Judaism Affiliation | NON | + + + [...] [place], [place] | | | | | [address] | | + + + + + Care Team Providers + +------+ + | Care Packer And Carry Out Name | Role | Phone | + [...] as of this encounter Progress Notes Interface, Table Inspector In - 02/03/2006 3:12 AM PDTCLINIC DATE: [...] the lumbar spine. Juanjose Hayden M.D. / [id number] / [id number] / [id number] / C: 10/21/2001 [facility] cc: Yobani Millan D.O. [address] [place], [place] [address]Uebxspxlunvymt signed by Interface, Table Inspector In at 02/03/2006 3:1 2 AM PDTdocumented in this encounter Plan of Treatment Not on filedocumented as of this encounter Visit Diagnoses Not on filedocumented in this encounter"
--- OUTSIDE RECORDS SUMMARY | ~2018-10-28 | XMS | Encounter Summary ---
Demographics + + + | Address | [address] | | | [place] [address] | + + + | Home Phone [...] [place], [place] | | | | | [address] | | + + + + + Care Team Providers + +------+ + | Care Software Support Technician Name | Role | Phone [...] [address] | | | | | [facility] [place] | [address] [place], [place] | | | | | Mailcode: [id number] | [address] | | | | | Physician's Praneeth | | | | | | [place], [place] | | | | | | [address] | | | | | | [phone] | | | +--------+ + + + [...] | | + +---------+ + + | [facility] DEPARTMENT OF | | | | | RADIOLOGY | | | | + +---------+ + + documented in this encounter Visit Diagnoses Not on filedocumented in this encounter"
--- OUTSIDE RECORDS SUMMARY | ~2018-10-28 | XMS | Encounter Summary ---
Demographics + + + | Address | [address] | | | [place] [address] | + + + | Home Phone | | + + + | Preferred Language | Unknown | + + + | Marital Status | | + + + | Quaker Affiliation | Unknown | + + + | Race | Unknown | + + + | Ethnic Group | Unknown | + + + Author + + + | Author | [facility] | | | and [place] | + + + | Organization | [facility] | | | [...] Team Providers + +------+ + | Care Milk Route Supervisor Name | Role | Phone | [...] + + | 08/13/ | Office | [facility] | Nick Ram | 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
--- OUTSIDE RECORDS SUMMARY | ~2018-10-28 | XMS | Encounter Summary ---
Demographics + + + | Address | [address] | | | [place] [address] | + + + | Home Phone [...] [place], [place] | | | | | [address] | | + + + + + Care Team Providers + +------+ + | Care Telephone Lineworker Name | Role | Phone | + [...] [address] | | | | | [address] | [address] [place], [place] | | | | | Mailcode: [id number] | [address] | | | | | Phys[facility]ilion | | | | | | [place], [place] | | | | | | [address] | | | | | | [phone] | | | +--------+ + + + [...]
--- OUTSIDE RECORDS SUMMARY | ~2018-10-28 | XMS | Encounter Summary ---
Demographics + + + | Address | [address] | | | [place] [address] | + + + | Home Phone [...] [place], [place] | | | | | [address] | | + + + + + Care Team Providers + +------+ + | Care Mechanical Manufacturing Engineer Name | Role | Phone | [...] W | | | | ON | [facility] 4th Floor [address] | | | | | [address] | Road [place], [place] | | | | | Code: [address] | [address] | | | | | for Health and | | | | | | Healing,4th Floor | | | | | | [place], [place] | | | | | | [address] | | | | | | [phone] | | | +--------+ + + + [...]
--- OUTSIDE RECORDS SUMMARY | ~2018-10-28 | XMS | Encounter Summary ---
Demographics + + + | Address | [address] | | | [place] [address] | + + + | Home Phone [...] [place], [place] | | | | | [address] | | + + + + + Care Team Providers + +------+ + | Care Middle School Pe Teacher Name | Role | Phone | [...] as of this encounter Progress Notes Interface, Engineering Psychologist In - 02/23/2006 3:02 AM PDTCLINIC DATE: [...] not currently taking oxycodone. Grace Everett / [id number] / [id number] / [id number] / [id number] Tdocumented in this encounter Plan of Treatment Not on filedocumented as of this encounter Visit Diagnoses Not on filedocumented in this encounter"
--- OUTSIDE RECORDS SUMMARY | ~2018-10-28 | XMS | Encounter Summary ---
Demographics + + + | Address | [address] | | | [place] [address] | + + + | Home Phone | | + + + | Preferred Language | Unknown | + + + | Marital Status | | + + + | Hindu Affiliation | NON | + + + [...] [place], [place] | | | | | [address] | | + + + + + Care Team Providers + +------+ + | Care Underwriting Technician Name | Role | Phone | [...] as of this encounter Progress Notes Interface, Front Load Trash Truck Driver In - 03/29/2006 3:04 AM [facility] [place] [address] [address] or October 08, 2000 Yobani Millan D.O. [address] [facility] [address] [place] [address] RE: BERTRAM ORTA MR #: [id number] Dear Dr. Millan: It is a pleasure to see your patient Mr. Bertram Orta in the Neurosurgery Clinic at [place]. As you are well aware, this 41-year [...] extremities including the deltoids, biceps, triceps, and registered safety engineer, hip flexion extension, knee flexion extension, dorsal [...] he needs to be referred to the [facility] to Dr. Steven Price in the [...] the chance. Yours sincerely, Dirk Davis M.D. [facility] / [id number] / [id number] / [id number] / cc: tSeven Price M.D. [facility] Department of Pain Clinic [id number] signed by Interface, Front Load Trash Truck Driver In at 03/29/2006 3:04 AM PDTdocume nted in this encounter Plan of Treatment Not on filedocumented as of this encounter Visit Diagnoses Not on filedocumented in this encounter
--- OUTSIDE RECORDS SUMMARY | ~2018-10-28 | XMS | Encounter Summary ---
Demographics + + + | Address | [address] | | | [place] [address] | + + + | Home Phone | | + + + | Preferred Language | Unknown | + + + | Marital Status | Unknown | + + + | Holiness Affiliation | Unknown | + + + | Race | Unknown | + + + | Ethnic Group | Unknown | + + + Author + + + | Author | [facility] | + + + | Organization | [facility] | + + + | Address | Unknown | + + + | Phone | Unavailable | + + + Care Team Providers + +------+ + | Care Conditioner Tumbler Name | Role | Phone | + +------+ + PCP | Unavailable | + +------+ + Encounter Details +--------+ + + + + | Date | Type | Department | Care Team | Description | +--------+ + + + + | 10/21/ | Lab | [facility] | KumargerhardSinea | | | 2018 | Requisition | [address] | A, Fiscal Accounting Clerk | | | | | [place] [address] | | | | | | [phone] | | | +--------+ + + + [...]
--- OUTSIDE RECORDS SUMMARY | ~2018-10-28 | XMS | Encounter Summary ---
Demographics + + + | Address | [address] | | | [place] [address] | + + + | Home Phone | | + + + | Preferred Language | Unknown | + + + | Marital Status | | + + + | Jain Affiliation | Unknown | + + + | Race | Unknown | + + + | Ethnic Group | Unknown | + + + Author + + + | Author | [facility] | | | and [place] | + + + | Organization | [facility] | | | [...] Team Providers + +------+ + | Care Model And Mold Maker Plaster Name | Role | Phone | + +------+ + | Hamzah Zamora | PCP | Unavailable | + +------+ + Encounter Details +--------+ + + + + | Date | Type | Department | Care Team | Description | +--------+ + + + + | 08/13/ | Hospital | [facility] | Nick Ram | Chronic lumbar | | 2019 | Encounter | MED CTR OR PRE OP | MD Zeeshan [address] | radiculopathy; | | | | [address] | [address] [place] | Failed back syndrome | | | | [place] [address] | [address] | of lumbar spine; | | | [...] | | | | | | [place] ([id number]) | | | | | + +--------+ [...] my direction according to | | | [facility] conscious sedation protocol. The area [...]
== END 2018-10-28 20:47 | disposition home or self-care (01) ==
LOC: ED 18:58
DX: R33.9 Retention of urine, unspecified (principal)
CPT/HCPCS: 51701; 51798; 81001; 99283-25

== ENCOUNTER 2018-10-29 01:24 | Emergency (ER) | payer MEDICARE, OTHER ==
[~2018-10-29] VITALS: Ht 172.7 cm; Wt 99.8 kg
--- OUTSIDE RECORDS SUMMARY | ~2018-10-29 | XMS | Encounter Summary ---
Demographics + + + | Address | [address] | | | [place] [address] | + + + | Home Phone | | + + + | Preferred Language | Unknown | + + + | Marital Status | | + + + | Gnosticist Affiliation | NON | + + + | Race | White | + + + | Ethnic Group | Not or | + + + Author + + + | Organization | Unknown | + + + | Address | Unknown | + + + | Phone | Unavailable | + + + Support + + + + + | Name | Relationship | Address | Phone | + + + + + | Brandi Orta | YURIY | [address] | | | | | [place], [place] | | | | | [address] | | + + + + + Care Team Providers + +------+ + | Care Boatswain Mate Name | Role | Phone | + +------+ + | Yobani Millan DO | PCP | | + +------+ + Encounter Details +--------+ + + + + | Date | Type | Department | Care Team | Description | +--------+ + + + + | 10/08/ | Transcribed | | Dictation, Other | Transcribed | | 2001 | | | | | +--------+ + + + + Social History + +-------+ +--------+------+ | Tobacco Use | Types | Packs/Day | Years | Date | | | | | Used | | + +-------+ +--------+------+ | Never Assessed | | | | | + +-------+ +--------+------+ + + + | Sex Assigned at | Date Recorded | | | | + + + | Not on file | | + + + + + + + | Job Start Date | Occupation | Industry | + + + + | Not on file | Not on file | Not on file | + + + + + + + + | Travel History | Travel Start | Travel End | + + + + + + | No recent travel history available. | + + documented as of this encounter Progress Notes Interface, Banquet Set Up Person In - 03/29/2006 3:04 AM [facility] [place] [address] [address] or October 08, 2000 Yobani Millan D.O. [address] [facility] [address] [facility] [address] RE: BERTRAM ORTA MR #: [id number] Dear Dr. Millan: It is a pleasure to see your patient Mr. Bertram Orta in the Neurosurgery Clinic at [place]. As you are well aware, this 41-year right-handed gentleman comes with a chief complaint of low back pain. The patient states that in the last 5 to 10 years, he has had approximately yearly episodes where his back would "go out." This could be pain in the low back that would respond to chiropractic manipulation. In all of those episodes, he never had any radicular pain down the legs, weakness, numbness, tingling, bowel and bladder problems or problems coordinating the legs. In approximately May 1999, he was helping with some concrete work and found that he developed back pain again. Unfortunately, ever since that time, it has not resolved, and he continues to have significant problems. The pain is anything from an ache to a burning pain located in the low back. It is made worse with efforts and activities particularly sitting or standing or lying too long in one position; he will get up, a change of position will help somewhat. Walking is not too bad until he does it too much. The pain is located in the low back. It radiates into the buttocks bilaterally. He does not have any major radicular pain down the leg past the knee. He has no numbness in low back legs, no weakness in the legs, problems coordinating, or bowel and bladder dysfunction. He has had physical therapy. He has had chiropractic therapy. He has had manipulation in your clinic which was basically the most successful. He has also had epidural steroids which initially were helpful but have not helped this. He has had an MRI scan, and we are asked to consult on what surgical intervention might be warranted and how we might be able to help him further. The past medical history shows that this gentleman has had surgery for his toe on the right foot for a right ganglion cyst, for a tonsillectomy, and for several fatty tumors. He had no other significant cardiac, pulmonary, GI, or problems. The family history is positive for cancer, diabetes, high blood pressure, metal illness, convulsions, and arthritis. There is no spine problems, paralysis, blood disorders, tuberculosis, or heart disease. 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 He drinks occasionally. He has no drug allergies, and currently, his only medication is pain pills. In review of systems, he has no high blood pressure, angina, or circulatory problems. He notes that he has had some abdominal and ulcer-type pain a month ago, and he thought this was due to anti-inflammatory steroids, and he has stopped them and the pain has gotten better. He has no jaundice, hepatitis, asthma, shortness of pain, emphysema, diabetes, cancer, skin disease, anemia, renal failure, or veneral disease. There are no fractures or neck disorders; only back disorders, and no arthritis of significant other joints. He has no neurologic disorders, no strokes, blackouts, epilepsy, or headache. The remainder of the review of systems is negative. On examination, a very friendly and cooperative gentleman who does not appear in significant distress. He gave excellent history, cooperated with examination fully. He appears well nourished. His gait is normal and cerebellar testing in upper and lower extremities is normal. Musculoskeletal examination reveals some limited range of motion of the lumbar spine. There is some diffuse tenderness and some point tenderness in the lower lumbosacral junction. No SI joint tenderness. No subtrochanteric tenderness. No tenderness over the sciatic nerves bilaterally. Straight leg raising is negative bilaterally. Manipulation of the hip is negative bilaterally. Reverse straight leg raising is negative. Pulses are symmetric in the lower extremities. There is no edema. Motor strength in the upper extremities including the deltoids, biceps, triceps, and visual communications instructor, hip flexion extension, knee flexion extension, dorsal flexion, and plantar flexion are 5/5 with normal tone. The reflexes are +1 and symmetrical in the upper and lower extremities, and the toes are downgoing. Sensory examination is notable for pinprick and position sense. I have reviewed an MRI scan done on May 10, 2000, and this shows that the L5-S1 level with significant degenerative changes of the disk, narrowing of the disk with some commensurate narrowing of the lateral foramina and recesses. Interestingly, the L3-L4 and L4-L5 appear well hydrated. 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 He has no true radiculopathy or neurologic compromise. At this point, one is trying to find out what is the distinct pain generator producing this back pain, and then will he have a high probability of any surgical correction for it. It is my thought that if the L5-S1 disk is probably the cause for his knee pain, and I think that to further evaluate his back, we need several things. 1. I think we need flexion-extension, AP, and lateral lumbar spine films. 2. I think a bone scan at the lumbar spine would be helpful. This would help rule out facet joint inflammation and will also pinpoint inflammation at the endplates which may correlate with the Modic changes seen on the MRI scan. Finally, I think he needs to be referred to the [facility] to Dr. Steven Price in the Pain Clinic. Dr. Price will do diskograms, and I would suggest that they do L3-L4, L4-L5, and L5-S1. If he has no instability of the spine, the bone scan only shows changes that will correlate with L5-S1 and the diskogram is negative at the other levels other than L5-S1, then I think he may respond either to an IDET procedure at L5-S1 which is a percutaneous procedure or do any anterior fusion. Because the disk space has so narrowed, I would wonder whether an IDET procedure would be successful, but could consider that. If indeed that is the case, then I think that one would consider a fusion, and I would think that we need to see him back at that time. Thank you so much for sending him. I appreciate the chance. Yours sincerely, Dirk Davis M.D. [facility] / [id number] / [id number] / [id number] / cc: Steven Price M.D. [facility] Department of Pain Clinic [id number] signed by Interface, Banquet Set Up Person In at 03/29/2006 3:04 AM PDTdocume nted in this encounter Plan of Treatment Not on filedocumented as of this encounter Visit Diagnoses Not on filedocumented in this encounter
--- OUTSIDE RECORDS SUMMARY | ~2018-10-29 | XMS | Encounter Summary ---
Demographics + + + | Address | [address] | | | [place] [address] | + + + | Home Phone | | + + + | Preferred Language | Unknown | + + + | Marital Status | | + + + | Pentecostal Affiliation | NON | + + + | Race | White | + + + | Ethnic Group | Not or | + + + Author + + + | Author | [facility] | + + + | Organization | [facility] | + + + | Address | Unknown | + + + | Phone | Unavailable | + + + Support + + + + + | Name | Relationship | Address | Phone | + + + + + | Brandi Boyle | YURIY | [address] | | | | | [place], [place] | | | | | [address] | | + + + + + Care Team Providers + +------+ + | Care Civil Engineering Professional Name | Role | Phone | + +------+ + PCP | Unavailable | + +------+ + Encounter Details +--------+ + + + + | Date | Type | Department | Care Team | Description | +--------+ + + + + | 04/18/ | Results | Orthopaedics at | Juanjose Hayden MD | | | 2000 | Only | [facility] [address] | [address] | | | | | [facility] | [address] [place], [place] | | | | | Mailcode: [id number] | [address] | | | | | [facility] | | | | | | [place], [place] | | | | | | [address] | | | | | | [phone] | | | +--------+ + + + [...] + + documented as of this encounter Plan of Treatment Not on filedocumented as of this encounter Procedures + +--------+ + + + | Procedure Name | Priori | Date/Time | Associated Diagnosis | Comments | | | ty | | | | + +--------+ + + + | SPINE, LUMBOSACRAL, | Routin | 04/30/2001 | | Results for this | | 2 VIEWS | e | 11:37 AM | | procedure are in the | | | | PST | | results section. | + +--------+ + + + | FLUOROSCOPY, | Routin | 04/28/2001 | | Results for this | | INDEPENDENT PORT. | e | 2:00 PM | | procedure are in the | | | | PST | | results section. | + +--------+ + + + | BLOOD BANK PRODUCT | Routin | 04/28/2001 | | Results for this | | | e | 7:42 AM | | procedure are in the | | | | PST | | results section. | + +--------+ + + + | BLOOD BANK PRODUCT | Routin | 04/28/2001 | | Results for this | | | e | 7:42 AM | | procedure are in the | | | | PST | | results section. | + +--------+ + + + | TYPE AND CROSSMATCH | Routin | 04/28/2001 | | Results for this | | | e | 7:42 AM | | procedure are in the | | | | PST | | results section. | + +--------+ + + + | SPINE, LUMBOSACRAL, | Routin | 04/18/2001 | | Results for this | | 2 VIEWS | e | 11:51 AM | | procedure are in the | | | | PST | | results section. | + +--------+ + + + documented in this encounter Results SPINE, LUMBOSACRAL, 2 VIEWS (04/30/2001 11:37 AM PST) + + + + + + | Component | Value | Ref Range | Performed | Pathologist | | | | | At | Signature | + + + + + + | SPINE, | Radiologist 1: ADRIAN, | | | | | LUMBOSACRAL | Rema MARCIALLUMBAR SPINE | | | | | , 2 VIEWS | - AP AND LATERAL VIEWS: | | | | | | 04/30/2001 Dictated | | | | | | 05/01/2001 | | | | | | CLINICAL: Lumbar | | | | | | spine fusion. | | | | | | COMPARISON: 04/18/01. | | | | | | FINDINGS: There has | | | | | | been interval anterior | | | | | | and posterior fusion of | | | | | | L5and S1. Two facet | | | | | | joint screws are present | | | | | | posteriorly and two | | | | | | metalcages are present | | | | | | in the disc | | | | | | space. There has been | | | | | | partialrestoration of | | | | | | disk space | | | | | | height. Alignment is | | | | | | maintained. There | | | | | | arebilateral sacroiliac | | | | | | joint degenerative | | | | | | changes, left greater | | | | | | thanright. Upper | | | | | | lumbar disc spaces are | | | | | | well-maintained. | | | | | | IMPRESSION: 1. Status | | | | | | post anterior-posterior | | | | | | fusion, L5-S1. | | | | | | 2. 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 END OF | | | | | | IMPRESSION: | | | | + + + + + + + + | Specimen | + + | | + + + +---------+ + + | Performing | Address | City/State/Zipcode | Phone Number | | Organization | | | | + +---------+ + + | [facility] | | | | | RADIOLOGY | | | | + +---------+ + + FLUOROSCOPY, INDEPENDENT PORT. (04/28/2001 2:00 PM PST) + + + + + + | Component | Value | Ref Range | Performed | Pathologist | | | | | At | Signature | + + + + + + | FLUOROSCOPY | Radiologist 1: ANYI, | | | | | , | Rema CAMPBELL IMPRESSION: | | | | | INDEPENDENT | FLUOROSCOPY SERVICES | | | | | PORT. | WERE PERFORMED UNDER THE | | | | | | DIRECTION OF | | | | | | THEORDERING PHYSICIAN. | | | | | | END OF IMPRESSION: | | | | | | | | | | | | | | | | | |END OF IMPRESSION: | | | | | | | | | | | | | | | | | | | | | | + + + + + + + + | Specimen | + + | | + + + +---------+ + + | Performing | Address | City/State/Zipcode | Phone Number | | Organization | | | | + +---------+ + + | [facility] | | | | | RADIOLOGY | | | | + +---------+ + + BLOOD BANK PRODUCT (04/28/2001 7:42 AM PST) + + + + + + | Component | Value | Ref Range | Performed | Pathologist | | | | | At | Signature | + + + + + + | PRODUCT | PACKED CELLS | | [facility] | | | DESCRIPTION | | | DEPARTMENT | | | | | | OF | | | | | | PATHOLOGY | | + + + + + + | PRODUCT | [id number] | | [facility] | | | UNIT # | | | DEPARTMENT | | | | | | OF | | | | | | PATHOLOGY | | + + + + + + | UNIT ABO | A | | [facility] | | | | | | DEPARTMENT | | | | | | OF | | | | | | PATHOLOGY | | + + + + + + | UNIT RH | POS | | [facility] | | | | | | DEPARTMENT | | | | | | OF | | | | | | PATHOLOGY | | + + + + + + | STATUS OF | Released | | [facility] | | | UNIT | | | DEPARTMENT | | | | | | OF | | | | | | PATHOLOGY | | + + + + + + + + | Specimen | + + | | + + + + + + + | Performing | Address | City/State/Zipcode | Phone Number | | Organization | | | | + + + + + | [facility] | [address] | [place] [address] | | | PATHOLOGY | [address] | | | + + + + + | [facility] | [address] | [place] [address] | | | PATHOLOGY | [address] | | | + + + + + ANTIBODY SCREEN & CROSSMATCH (04/28/2001 7:42 AM PST) + +-------+ + + + | Component | Value | Ref Range | Performed | Pathologist | | | | | At | Signature | + +-------+ + + + | ABO GROUP | A | | [facility] | | | | | | DEPARTMENT | | | | | | OF | | | | | | PATHOLOGY | | + +-------+ + + + | RH TYPE | POS | | [facility] | | | | | | DEPARTMENT | | | | | | OF | | | | | | PATHOLOGY | | + +-------+ + + + | ANTIBODY | NEG | | [facility] | | | SCREEN | | | DEPARTMENT | | | | | | OF | | | | | | PATHOLOGY | | + +-------+ + + + + + | Specimen | + + | | + + + + + | Narrative | Performed At | + + + | SPEC WINNIE 05/02/01 @ 0700 | [facility] | | | DEPARTMENT OF | | | PATHOLOGY | + + + + + + + + | Performing | Address | City/State/Zipcode | Phone Number | | Organization | | | | + + + + + | [facility] | [address] | [place] [address] | | | PATHOLOGY | [address] | | | + + + + + | [facility] | [address] | [place] [address] | | | PATHOLOGY | [address] | | | + + + + + BLOOD BANK PRODUCT (04/28/2001 7:42 AM PST) + + + + + + | Component | Value | Ref Range | Performed | Pathologist | | | | | At | Signature | + + + + + + | PRODUCT | PACKED CELLS | | [facility] | | | DESCRIPTION | | | DEPARTMENT | | | | | | OF | | | | | | PATHOLOGY | | + + + + + + | PRODUCT | [id number] | | [facility] | | | UNIT # | | | DEPARTMENT | | | | | | OF | | | | | | PATHOLOGY | | + + + + + + | UNIT ABO | A | | [facility] | | | | | | DEPARTMENT | | | | | | OF | | | | | | PATHOLOGY | | + + + + + + | UNIT RH | POS | | [facility] | | | | | | DEPARTMENT | | | | | | OF | | | | | | PATHOLOGY | | + + + + + + | STATUS OF | Released | | [facility] | | | UNIT | | | DEPARTMENT | | | | | | OF | | | | | | PATHOLOGY | | + + + + + + + + | Specimen | + + | | + + + + + + + | Performing | Address | City/State/Zipcode | Phone Number | | Organization | | | | + + + + + | [facility] | [address] | [place] [address] | | | PATHOLOGY | [address] | | | + + + + + | [facility] | [address] | [place] [address] | | | PATHOLOGY | [address] | | | + + + + + SPINE, LUMBOSACRAL, 2 VIEWS (04/18/2001 11:51 AM PST) + + + + + + | Component | Value | Ref Range | Performed | Pathologist | | | | | At | Signature | + + + + + + | SPINE, | Radiologist 1: | | | | | LUMBOSACRAL | DAMIEN CRANE, | | | | | , 2 VIEWS | M.D.-Radiologist 2: | | | | | | MEAGAN-NITIN GONZALES, | | | | | | M.D.LUMBOSACRAL SPINE | | | | | | FRONTAL AND LATERAL | | | | | | VIEWS: 04/18/2001 | | | | | | Dictated 04/21/2001 | | | | | | COMPARISON: No prior | | | | | | comparisons. | | | | | | FINDINGS: At L5-S1, | | | | | | there is intervertebral | | | | | | disc space narrowing | | | | | | andmarginal, endplate | | | | | | osteophytes. The | | | | | | L5-S1 facet joints | | | | | | appearsclerotic. The | | | | | | lumbar spine is | | | | | | otherwise normal in | | | | | | appearance | | | | | | withpreservation of the | | | | | | vertebral body heights, | | | | | | alignment, | | | | | | andintervertebral disc | | | | | | spaces. The facet | | | | | | joints from the L1 | | | | | | through [id number] normal. 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 END OF IMPRESSION: | | | | + + + + + + + + | Specimen | + + | | + + + +---------+ + + | Performing | Address | City/State/Zipcode | Phone Number | | Organization | | | | + +---------+ + + | [facility] | | | | | RADIOLOGY | | | | + +---------+ + + documented in this encounter Visit Diagnoses Not on filedocumented in this encounter"
--- OUTSIDE RECORDS SUMMARY | ~2018-10-29 | XMS | Encounter Summary ---
Demographics + + + | Address | [address] | | | [place] [address] | + + + | Home Phone | | + + + | Preferred Language | Unknown | + + + | Marital Status | | + + + | Pentecostal Affiliation | NON | + + + | Race | White | + + + | Ethnic Group | Not or | + + + Author + + + | Author | [facility] | + + + | Organization | [facility] | + + + | Address | Unknown | + + + | Phone | Unavailable | + + + Support + + + + + | Name | Relationship | Address | Phone | + + + + + | Brandi Boyle | YURIY | [address] | | | | | [place], [place] | | | | | [address] | | + + + + + Care Team Providers + +------+ + | Care Supervisor Wire Rope [employer]rication Name | Role | Phone | + +------+ + PCP | Unavailable | + +------+ + Encounter Details +--------+ + + + + | Date | Type | Department | Care Team | Description | +--------+ + + + + | 10/25/ | Results | Orthopaedics at | Juanjose Hayden MD | | | 2003 | Only | [facility] [address] | [address] | | | | | [facility] | [address] [place], [place] | | | | | Mailcode: [id number] | [address] | | | | | [facility] | | | | | | [place], [place] | | | | | | [address] | | | | | | [phone] | | | +--------+ + + + [...] | + +--------+ + + + | CT RECONSTRUCTION | Routin | 10/26/2003 | | Results for this | | SAGITAL | e | 10:50 AM | | procedure are in the | | | | PDT | | results section. | + +--------+ + + + | CT SPINE LUMBAR W | Routin | 10/26/2003 | | Results for this | | CONTRAST | e | 10:50 AM | | procedure are in the | | | | PDT | | results section. | + +--------+ + + + | X-RAY MYELOGRAM | Routin | 10/26/2003 | | Results for this | | LUMBOSACRAL | e | 10:44 AM | | procedure are in the | | | | PDT | | results section. | + +--------+ + + + | X-RAY INJ MYELOGRAM | Routin | 10/26/2003 | | Results for this | | NON C1 OR C2 | e | 10:44 AM | | procedure are in the | | | | PDT | | results section. | + +--------+ + + + documented in this encounter Results CT RECONSTRUCTION [facility] (10/26/2003 10:50 AM PDT) + + + + + + | Component | Value | Ref Range | Performed | Pathologist | | | | | At | Signature | + + + + + + | CT | Radiologist 1: ANDREY, | | | | | RECONSTRUCT | Rema MOORELUMBAR CT | | | | | ION [facility] | MYELOGRAM: 10/26/2003 | | | | | | Dictated 11/04/2003 | | | | | | COMPARISON: None. | | | | | | CLINICAL HISTORY: Low | | | | | | back pain. | | | | | | TECHNIQUE: Following | | | | | | intrathecal | | | | | | administration in | | | | | | fluoroscopy, axial3 mm | | | | | | thick images were | | | | | | obtained through the | | | | | | entire lumbar spine at | | | | | | 1.5mm intervals without | | | | | | IV contrast. Images | | | | | | were reviewed using bone | | | | | | andsoft tissue | | | | | | windows. Sagittal and | | | | | | coronal reformations | | | | | | wereperformed. | | | | | | FINDINGS: There are | | | | | | five xvc-txy-nwiosdr | | | | | | lumbar-type | | | | | | vertebralbodies. Post | | | | | | surgical changes are | | | | | | seen at the L5-S1 level | | | | | | related toprevious | | | | | | discectomy and placement | | | | | | of two metallic spacers | | | | | | in the L5-S1disc | | | | | | space. There are | | | | | | screws through the L5 | | | | | | lamina, which | | | | | | traversethe L5-S1 facet | | | | | | joints | | | | | | bilaterally. The | | | | | | conus terminates | | | | | | normally atthe L1-L2 | | | | | | level. Alignment of | | | | | | the lumbar spine appears | | | | | | near anatomic.Vertebral | | | | | | body heights are | | | | | | normal. There is mild | | | | | | disc height loss | | | | | | atL1-2. Individual | | | | | | axial levels are | | | | | | described below. | | | | | | T12-L1: No | | | | | | significant posterior | | | | | | disc protrusions are | | | | | | seen. Thethecal sac | | | | | | and neural foramina are | | | | | | patent. L1-2: There | | | | | | is a focal asymmetric | | | | | | left paracentral | | | | | | posterior discprotrusion | | | | | | which results in | | | | | | moderate left lateral | | | | | | recess stenosis andmild | | | | | | left foraminal | | | | | | stenosis. The right | | | | | | neural foramen is | | | | | | notsignificantly | | | | | | narrowed. The central | | | | | | canal is mildly | | | | | | narrowed. L2-3: There | | | | | | is a mild broad based | | | | | | disc bulge which results | | | | | | in mildnarrowing of the | | | | | | ventral spinal | | | | | | canal. The neural | | | | | | foramina are | | | | | | notsignificantly | | | | | | narrowed. L3-4 through | | | | | | L4-5: No significant | | | | | | posterior disc | | | | | | protrusions | | | | | | areseen. The thecal | | | | | | sac and neural foramina | | | | | | appear patent. | | | | | | L5-S1: Postsurgical | | | | | | changes are seen related | | | | | | to previous | | | | | | discectomyand placement | | | | | | of metallic interbody | | | | | | disc | | | | | | spacers. Bilateral | | | | | | screwsare seen through | | | | | | the lamina and L5-S1 | | | | | | facet joints | | | | | | bilaterally. Thefacet | | | | | | s appear | | | | | | degenerated. There is | | | | | | no significant | | | | | | posterior | | | | | | discprotrusion. The | | | | | | central spinal canal is | | | | | | widely | | | | | | patent. Smallosteophy | | | | | | lyle cause mild narrowing | | | | | | of neural foramina | | | | | | bilaterally.There is a | | | | | | bone graft harvest site | | | | | | involving the posterior | | | | | | right | | | | | | iliacwing. Other | | | | | | regional soft tissue | | | | | | structures are within | | | | | | normal limits. | | | | | | IMPRESSION: Postsurgical | | | | | | changes are seen at | | | | | | L5-S1 as described | | | | | | above. There | | | | | | ismoderate left lateral | | | | | | recess stenosis at L1-2 | | | | | | and mild left | | | | | | foraminalstenosis at | | | | | | L1-2. Mild | | | | | | degenerative disc | | | | | | disease at L2-3 as | | | | | | notedabove. No | | | | | | critical neural stenoses | | | | | | are seen at other | | | | | | levels.Individual axial | | | | | | levels are more fully | | | | | | described in the above | | | | | | findingssection. END | | | | | | OF IMPRESSION: | | | | + + + + + + + + | Specimen | + + | | + + + +---------+ + + | Performing | Address | City/State/Zipcode | Phone Number | | Organization | | | | + +---------+ + + | [facility]PARTMENT OF | | | | | RADIOLOGY | | | | + +---------+ + + CT SPINE LUMBAR W CONTRAST (10/26/2003 10:50 AM PDT) + + + + + + | Component | Value | Ref Range | Performed | Pathologist | | | | | At | Signature | + + + + + + | CT LUMBAR | Radiologist 1: ANDREY, | | | | | SPINE W | Rema MOORELUMBAR CT | | | | | CONTRAST | MYELOGRAM: 10/26/2003 | | | | | | Dictated 11/04/2003 | | | | | | COMPARISON: None. | | | | | | CLINICAL HISTORY: Low | | | | | | back pain. | | | | | | TECHNIQUE: Following | | | | | | intrathecal | | | | | | administration in | | | | | | fluoroscopy, axial3 mm | | | | | | thick images were | | | | | | obtained through the | | | | | | entire lumbar spine at | | | | | | 1.5mm intervals without | | | | | | IV contrast. Images | | | | | | were reviewed using bone | | | | | | andsoft tissue | | | | | | windows. Sagittal and | | | | | | coronal reformations | | | | | | wereperformed. | | | | | | FINDINGS: There are | | | | | | five mme-rix-mzywshi | | | | | | lumbar-type | | | | | | vertebralbodies. Post | | | | | | surgical changes are | | | | | | seen at the L5-S1 level | | | | | | related toprevious | | | | | | discectomy and placement | | | | | | of two metallic spacers | | | | | | in the L5-S1disc | | | | | | space. There are | | | | | | screws through the L5 | | | | | | lamina, which | | | | | | traversethe L5-S1 facet | | | | | | joints | | | | | | bilaterally. The | | | | | | conus terminates | | | | | | normally atthe L1-L2 | | | | | | level. Alignment of | | | | | | the lumbar spine appears | | | | | | near anatomic.Vertebral | | | | | | body heights are | | | | | | normal. There is mild | | | | | | disc height loss | | | | | | atL1-2. Individual | | | | | | axial levels are | | | | | | described below. | | | | | | T12-L1: No | | | | | | significant posterior | | | | | | disc protrusions are | | | | | | seen. Thethecal sac | | | | | | and neural foramina are | | | | | | patent. L1-2: There | | | | | | is a focal asymmetric | | | | | | left paracentral | | | | | | posterior discprotrusion | | | | | | which results in | | | | | | moderate left lateral | | | | | | recess stenosis andmild | | | | | | left foraminal | | | | | | stenosis. The right | | | | | | neural foramen is | | | | | | notsignificantly | | | | | | narrowed. The central | | | | | | canal is mildly | | | | | | narrowed. L2-3: There | | | | | | is a mild broad based | | | | | | disc bulge which results | | | | | | in mildnarrowing of the | | | | | | ventral spinal | | | | | | canal. The neural | | | | | | foramina are | | | | | | notsignificantly | | | | | | narrowed. L3-4 through | | | | | | L4-5: No significant | | | | | | posterior disc | | | | | | protrusions | | | | | | areseen. The thecal | | | | | | sac and neural foramina | | | | | | appear patent. | | | | | | L5-S1: Postsurgical | | | | | | changes are seen related | | | | | | to previous | | | | | | discectomyand placement | | | | | | of metallic interbody | | | | | | disc | | | | | | spacers. Bilateral | | | | | | screwsare seen through | | | | | | the lamina and L5-S1 | | | | | | facet joints | | | | | | bilaterally. Thefacet | | | | | | s appear | | | | | | degenerated. There is | | | | | | no significant | | | | | | posterior | | | | | | discprotrusion. The | | | | | | central spinal canal is | | | | | | widely | | | | | | patent. Smallosteophy | | | | | | lyle cause mild narrowing | | | | | | of neural foramina | | | | | | bilaterally.There is a | | | | | | bone graft harvest site | | | | | | involving the posterior | | | | | | right | | | | | | iliacwing. Other | | | | | | regional soft tissue | | | | | | structures are within | | | | | | normal limits. | | | | | | IMPRESSION: Postsurgical | | | | | | changes are seen at | | | | | | L5-S1 as described | | | | | | above. There | | | | | | ismoderate left lateral | | | | | | recess stenosis at L1-2 | | | | | | and mild left | | | | | | foraminalstenosis at | | | | | | L1-2. Mild | | | | | | degenerative disc | | | | | | disease at L2-3 as | | | | | | notedabove. No | | | | | | critical neural stenoses | | | | | | are seen at other | | | | | | levels.Individual axial | | | | | | levels are more fully | | | | | | described in the above | | | | | | findingssection. END | | | | | | OF IMPRESSION: | | | | + + + + + + + + | Specimen | + + | | + + + +---------+ + + | Performing | Address | City/State/Zipcode | Phone Number | | Organization | | | | + +---------+ + + | [facility] DEPARTMENT OF | | | | | RADIOLOGY | | | | + +---------+ + + INJ MYELOGRAPHY NON C1 OR C2 (10/26/2003 10:44 AM PDT) + + + + + + | Component | Value | Ref Range | Performed | Pathologist | | | | | At | Signature | + + + + + + | INJ | Radiologist 1: ANDREY, | | | | | MYELOGRAPHY | Lucy MOOREDJessicaLUMBAR | | | | | NON C1 [place] | MYELOGRAM: 10/26/2003 | | | | | C2 | Dictated 11/04/2003 | | | | | | COMPARISON: None. | | | | | | CLINICAL HISTORY: Low | | | | | | back pain. | | | | | | FINDINGS: The risks | | | | | | and benefits of the | | | | | | procedure were | | | | | | firstexplained to the | | | | | | patient (PARQ | | | | | | conference), who gave | | | | | | full consent forthe | | | | | | procedure. He was | | | | | | then brought to the | | | | | | fluoroscopy suite and | | | | | | placed in a | | | | | | proneposition on the | | | | | | fluoroscopy | | | | | | table. The L2-3 disc | | | | | | space was localizedunder | | | | | | fluoroscopy. The low | | | | | | back area was prepped | | | | | | and draped in theusual | | | | | | sterile fashion. 1% | | | | | | lidocaine was used to | | | | | | infiltrate the skinand | | | | | | subcutaneous tissues for | | | | | | local | | | | | | anesthesia. Using a | | | | | | 22 gauge B-Dneedle, this | | | | | | was carefully advanced | | | | | | into the thecal sac | | | | | | until clear,colorless | | | | | | fluid was | | | | | | obtained. At this | | | | | | point, approximately 12 | | | | | | cc ofOmnipaque-180 were | | | | | | injected into the thecal | | | | | | sac under | | | | | | directfluoroscopic | | | | | | visualization. At the | | | | | | end of the procedure, | | | | | | the needlewas withdrawn | | | | | | and the area cleaned and | | | | | | dried. A sterile | | | | | | bandage wasapplied at | | | | | | the puncture | | | | | | site. Several | | | | | | fluoroscopic spot images | | | | | | werethen | | | | | | obtained. The patient | | | | | | was then taken to CT | | | | | | scan for | | | | | | additionaldetailed | | | | | | imaging. No immediate | | | | | | complications were | | | | | | noted. | | | | | | FINDINGS: Postsurgica | | | | | | l changes are seen at | | | | | | L5-S1 related to | | | | | | previousdiscectomy and | | | | | | placement of interbody | | | | | | spacers. There are | | | | | | bilateraltrans-facet | | | | | | screws at the L5-S1 | | | | | | level which appear | | | | | | intact. Alignmentof | | | | | | the lumbar spine is | | | | | | normal. There are | | | | | | mild disc bulges at L1-2 | | | | | | andL2-3 which are | | | | | | better detailed on the | | | | | | axial CT report of the | | | | | | samedate. No evidence | | | | | | for abnormal motion in | | | | | | flexion and extension. | | | | | | IMPRESSION: Postsurgical | | | | | | changes at L5-S1. No | | | | | | critical neural | | | | | | stenosis at anylevel, | | | | | | and no abnormal motion | | | | | | in flexion and | | | | | | extension. For | | | | | | furtherdetails, please | | | | | | refer to the CT | | | | | | myelogram report of the | | | | | | same date. END OF | | | | | | IMPRESSION: Addendum # 1 | | | | | | by Ksenia Gaspar, | | | | | | M.D. on 12-Nov-2003 | | | | | | 16:17 There is no change | | | | | | to this report. The | | | | | | addendum is | | | | | | toadministratively link | | | | | | associated examinations | | | | | | to one report.s | | | | + + + + + + + + | Specimen | + + | | + + + +---------+ + + | Performing | Address | City/State/Zipcode | Phone Number | | Organization | | | | + +---------+ + + | [facility] DEPARTMENT OF | | | | | RADIOLOGY | | | | + +---------+ + + MYELOGRAPHY LUMBOSACRAL (10/26/2003 10:44 AM PDT) + + + + + + | Component | Value | Ref Range | Performed | Pathologist | | | | | At | Signature | + + + + + + | MYELOGRAPHY | Radiologist 1: ANDREY, | | | | | | Rema MOORELUMBAR | | | | | LUMBOSACRAL | MYELOGRAM: 10/26/2003 | | | | | | Dictated 11/04/2003 | | | | | | COMPARISON: None. | | | | | | CLINICAL HISTORY: Low | | | | | | back pain. | | | | | | FINDINGS: The risks | | | | | | and benefits of the | | | | | | procedure were | | | | | | firstexplained to the | | | | | | patient (PARQ | | | | | | conference), who gave | | | | | | full consent forthe | | | | | | procedure. He was | | | | | | then brought to the | | | | | | fluoroscopy suite and | | | | | | placed in a | | | | | | proneposition on the | | | | | | fluoroscopy | | | | | | table. The L2-3 disc | | | | | | space was localizedunder | | | | | | fluoroscopy. The low | | | | | | back area was prepped | | | | | | and draped in theusual | | | | | | sterile fashion. 1% | | | | | | lidocaine was used to | | | | | | infiltrate the skinand | | | | | | subcutaneous tissues for | | | | | | local | | | | | | anesthesia. Using a | | | | | | 22 gauge B-Dneedle, this | | | | | | was carefully advanced | | | | | | into the thecal sac | | | | | | until clear,colorless | | | | | | fluid was | | | | | | obtained. At this | | | | | | point, approximately 12 | | | | | | cc ofOmnipaque-180 were | | | | | | injected into the thecal | | | | | | sac under | | | | | | directfluoroscopic | | | | | | visualization. At the | | | | | | end of the procedure, | | | | | | the needlewas withdrawn | | | | | | and the area cleaned and | | | | | | dried. A sterile | | | | | | bandage wasapplied at | | | | | | the puncture | | | | | | site. Several | | | | | | fluoroscopic spot images | | | | | | werethen | | | | | | obtained. The patient | | | | | | was then taken to CT | | | | | | scan for | | | | | | additionaldetailed | | | | | | imaging. No immediate | | | | | | complications were | | | | | | noted. | | | | | | FINDINGS: Postsurgica | | | | | | l changes are seen at | | | | | | L5-S1 related to | | | | | | previousdiscectomy and | | | | | | placement of interbody | | | | | | spacers. There are | | | | | | bilateraltrans-facet | | | | | | screws at the L5-S1 | | | | | | level which appear | | | | | | intact. Alignmentof | | | | | | the lumbar spine is | | | | | | normal. There are | | | | | | mild disc bulges at L1-2 | | | | | | andL2-3 which are | | | | | | better detailed on the | | | | | | axial CT report of the | | | | | | samedate. No evidence | | | | | | for abnormal motion in | | | | | | flexion and extension. | | | | | | IMPRESSION: Postsurgical | | | | | | changes at L5-S1. No | | | | | | critical neural | | | | | | stenosis at anylevel, | | | | | | and no abnormal motion | | | | | | in flexion and | | | | | | extension. For | | | | | | furtherdetails, please | | | | | | refer to the CT | | | | | | myelogram report of the | | | | | | same date. END OF | | | | | | IMPRESSION: Addendum # 1 | | | | | | by Ksenia Gaspar, | | | | | | M.D. on 12-Nov-2003 | | | | | | 16:17 There is no change | | | | | | to this report. The | | | | | | addendum is | | | | | | toadministratively link | | | | | | associated examinations | | | | | | to one report.s | | | | + + + + + + + + | Specimen | + + | | + + + +---------+ + + | Performing | Address | City/State/Zipcode | Phone Number | | Organization | | | | + +---------+ + + | [facility]MENT OF | | | | | RADIOLOGY | | | | + +---------+ + + documented in this encounter Visit Diagnoses Not on filedocumented in this encounter"
--- OUTSIDE RECORDS SUMMARY | ~2018-10-29 | XMS | Encounter Summary ---
Demographics + + + | Address | [address] | | | [place] [address] | + + + | Home Phone | | + + + | Preferred Language | Unknown | + + + | Marital Status | | + + + | Latter-Day Affiliation | NON | + + + [...] [place], [place] | | | | | [address] | | + + + + + Care Team Providers + +------+ + | Care Secretary Bookkeeper Name | Role | Phone | + [...] as of this encounter Progress Notes Interface, Club Former In - 03/29/2006 3:04 AM [facility] [place] [address] [address] or October 08, 2000 Yobani Millan D.O. [address] [facility] [place] [address] RE: BERTRAM ORTA MR #: [id number] Dear Dr. Millan: It is a pleasure to see your patient Mr. Bertram Orta in the Neurosurgery Clinic at [facility]. 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 Steven Price in the Pain [...] the chance. Yours sincerely, Dirk Davis M.D. [facility] / [id number] / [id number] / [id number] / cc: Steven Price M.D. [facility] Department of Pain Clinic [id number] signed by Interface, Club Former In at 03/29/2006 3:04 AM PDTdocume nted in this encounter Plan of Treatment Not on filedocumented as of this encounter Visit Diagnoses Not on filedocumented in this encounter
--- OUTSIDE RECORDS SUMMARY | ~2018-10-29 | XMS | Clinical Summary ---
Demographics + + + | Address | [address] | | | [place] [address] | + + + | Home Phone | | + + + | Preferred Language | Unknown | + + + | Marital Status | Unknown | + + + | Muslim Affiliation | Unknown | + + + | Race | Unknown | + + + | Ethnic Group | Unknown | + + + Author + + + | Author | [email or web address] | + + + | Organization | [email or web address] | + + + | Address | Unknown | + + + | Phone | Unavailable | + + + Care Team Providers + +------+ + | Care Tractor Sweeper Driver Name | Role | Phone | + +------+ + PP | Unavailable | + +------+ + Allergies Not on File Current Medications Not on file Active Problems Not on file Encounters +--------+ + + + + | Date | Type | Specialty | Care Team | Description | +--------+ + + + + | 10/21/ | Lab | | Siena Villatoro | | | 2019 | Requisition | | A, Color Making Supervisor | | +--------+ + + + + from Last 3 Months Social History + +-------+ +--------+------+ | Tobacco [...] on file | | + + + Plan of Treatment Not on file Results Not on filefrom Last 3 Months"
--- OUTSIDE RECORDS SUMMARY | ~2018-10-29 | XMS | Clinical Summary ---
Demographics + + + | Address | [address] | | | [place] [address] | + + + | Home Phone | | + + + | Preferred Language | Unknown | + + + | Marital Status | | + + + | Orthodox Affiliation | Unknown | + + + | Race | Unknown | + + + | Ethnic Group | Unknown | + + + Author + + + | Author | [facility] | | | and [place] | + + + | Organization | [facility] | | | and [place] | + + + | Address | Unknown | + + + | Phone | Unavailable | + + + Support + + +---------+ + | Name | Relationship | Address | Phone | + + +---------+ + | Beau Boyle | ECON | Unknown | | + + +---------+ + Care Team Providers + +------+ + | Care Migrant Leader Name | Role | Phone | + +------+ + | Live Zamora MD | PP | | + +------+ + Allergies No Known Allergies Medications + + + +---------+------+------+-------+ | Medication | Sig | Dispensed | Refills | Star | End | Statu | | | | | | t | Date | s | | | | | | Date | | | + + + +---------+------+------+-------+ | SHINGRIX 50 | Inject 50 mcg as | | 0 | 03/1 | | Activ | | MCG/0.5ML vaccine | directed once. | | | 1/20 | | e | | injection | | | | 19 | | | + + + +---------+------+------+-------+ Active Problems + + + | Problem | Noted Date | + + + | Chronic bilateral low back pain with bilateral sciatica | 05/08/2018 | + + + | S/P lumbar fusion | 05/08/2018 | + + + | Failed back syndrome of lumbar spine | 05/08/2018 | + + + | HYPERTRIGLYCERIDEMIA | 12/27/2010 | + + + | THROMBOCYTOPENIA | 11/09/2010 | + + + | Abnormal liver function tests | 11/09/2010 | + + + | VIRAL INFECTION | | + + + | NONSPEC ELEVATION OF LEVELS OF TRANSAMINASE/LDH | | + + + | HEPATITIS B | | + + + + + | Overview: ICD-10 Record update | + + + +---+ | FATTY LIVER DISEASE | | + +---+ Encounters +--------+ + + + + | Date | Type | Specialty | Care Team | Description | +--------+ + + + + | 08/20/ | Office | | Nick Ram | Chronic bilateral | | 2018 | Visit | | TMD | low back pain with | | | | | | bilateral sciatica | | | | | | (Primary Dx); S/P | | | | | | lumbar fusion; | | | | | | Failed back syndrome | | | | | | of lumbar spine | +--------+ + + + + | 08/14/ | Orders Only | | Nick Ram | | | 2019 | | | T, MD | | +--------+ + + + + | 08/14/ | Telephone | | Nick Ram | Medication Refill | | 2018 | | | T, MD | Assistance | +--------+ + + + + | 08/13/ | Surgery | | Nick Ram | SCS Trial with Nevro | | 2018 | | | T, MD | | +--------+ + + + + | 08/13/ | Hospital | | Nick Ram | Chronic lumbar | | 2018 | Encounter | | MD Zeeshan | radiculopathy; | | | | | | Failed back syndrome | | | | | | of lumbar spine; | | | | | | S/P lumbar fusion | +--------+ + + + + | 08/13/ | Office | | Nick Ram | Failed back syndrome | | 2018 | Visit | | TMD | of lumbar spine | | | | | | (Primary Dx); S/P | | | | | | lumbar fusion; | | | | | | Chronic bilateral | | | | | | low back pain with | | | | | | bilateral sciatica | +--------+ + + + + from Last 3 Months Family History + + +------+ + | Medical History | Relation | Name | Comments | + + +------+ + | Drug abuse | Brother | | Heroin | + + +------+ + | Other (see comment) | Brother | | Prostate problems | + + +------+ + | No known problems | Brother | | | + + +------+ + | No known problems | Brother | | | + + +------+ + | No known problems | Brother | | | + + +------+ + | COPD | Mother | | | + + +------+ + | Cancer | Mother | | | + + +------+ + | Diabetes | Mother | | | + + +------+ + | Diabetes | Other | | | + + +------+ + | Other (see comment) | Other | | Malignant neoplasm of genital structure, | | | | | Cardiovascular disease, Respiratory disease | + + +------+ + | No known problems | Sister | | | + + +------+ + + +------+ + + | Relation | Name | Status | Comments | + +------+ + + | Brother | | | | + +------+ + + | Brother | | | | + +------+ + + | Brother | | | | + +------+ + + | Brother | | | | + +------+ + + | Father | | | | + +------+ + + | Mother | | | | | | | (Age | | | | | 87) | | + +------+ + + | Other | | | | + +------+ + + | Sister | | | | + +------+ + + Social History + +-------+ +--------+ + | Tobacco Use | Types | Packs/Day | Years | Date | | | | | Used | | + +-------+ +--------+ + | Former Smoker | | | | Quit: 1970 | + +-------+ +--------+ + + +---+---+---+ | Smokeless Tobacco: | | | | | Never Used | | | | + +---+---+---+ + + +---------+ + | Alcohol Use | Drinks/We | oz/Week | Comments | | | ek | | | + + +---------+ + | No | | | | + + +---------+ + + + + | Sex Assigned at [...] recent travel history available. | + + Last Filed Vital Signs + + + + | Vital Sign | Reading | Time Taken | + + + + | Blood Pressure | 128/74 | 08/20/2018 1012 PDT | + + + + | Pulse | 70 | 08/20/2018 1012 PDT | + + + + | Temperature | 36.2 C (97.2 F) | 08/13/2018 1250 PDT | + + + + | Respiratory Rate | 12 | 08/13/20181413 PDT | + + + + | Oxygen Saturation | 93% | 08/13/2018 141 PDT | + + + + | Inhaled Oxygen | - | - | | Concentration | | | + + + + | Weight | 104.3 kg (230 lb) | 08/20/20182 PDT | + + + + | Height | 172.7 cm (5' 8") | 08/20/2018 1012 PDT | + + + + | Body Mass Index | 34.97 | 08/20/2018 1012 PDT | + + + + Plan of Treatment + + + + + | Health Maintenance | Due Date | Last Done | Comments | + + + + + | Hepatitis C | | | | | Screening | 4 | | | + + + + + | Colorectal Cancer | | 06/03/2002 | | | Screening | 3 | | | | (Colonoscopy) | | | | + + + + + | Adult Annual | | | | | Wellness Visit | 8 | | | + + + + + | Vaccine: | | 02/25/2018 | | | Dtap/Tdap/Td (2 - | 8 | | | | Td) | | | | + + + + + | Vaccine: Influenza | Completed | 02/25/2018, 05/03/2010 | | + + + + + | Vaccine: Zoster | Completed | 08/11/2018, 03/05/2018 | | + + + + + Implants + +------+------+ +--------+--------+--------+ | Implanted | Type | Area | Manufacture | Device | Shelf | Model | | | | | r | | Expira | / | | | | | | Identi | tion | Serial | | | | | | fier | Date | / Lot | + +------+------+ +--------+--------+--------+ | Scs Trial | Lead | | NEVRO CHRIS | | 04/19/ | [id number] | | Lead-08/13/2018Implanted: Qty: | | | - NVRO | | 2020 | 058-50 | | 1 on 08/13/2018 by | | | | | | B / | | Nick Ram MD | | | | | | /[id number] | | | | | | | | 338 | + +------+------+ +--------+--------+--------+ | Scs Trial | Lead | | NEVRO CHRIS | | 04/19/ | [id number] | | Lead-08/13/2018Implanted: Qty: | | | - NVRO | | 2020 | 058-50 | | 1 on 08/13/2018 by | | | | | | B / | | Nick Ram MD | | | | | | /[id number] | | | | | | | | 338 | + +------+------+ +--------+--------+--------+ Procedures + +--------+ + + + | Procedure Name | Priori | Date/Time | Associated Diagnosis | Comments | | | ty | | | | + +--------+ + + + | IR PAIN | Routin | 08/13/2018 | Chronic lumbar | Results for this | | MANAGEMENT/SKELETAL | e | 13:20 PDT | radiculopathy | procedure are in the | | | | | | results section. | + +--------+ + + + | INJECTION - | | 08/13/2018 | SCS Trial with | | | TRANSFORAMINAL EPI | | 13:00 PDT | Nevro | | | STEROID LUMBAR / | | | | | | SACRAL (11821) | | | | | + +--------+ + + + +---+--------+ | | Case | | | Notes | | | SCS | +---+--------+ | | | | | Specia | | | l | | | Needs | | | CHECK | | | IN AT | | | 1100 | +---+--------+ from Last 3 Months Results IR Pain Management/Skeletal (08/13/2018 13:20 PDT) + + | Specimen | + + | | + + + + + | Narrative | Performed At | + + + | | [facility] | | 08/13/2018 Spinal Cord Stimulator Trial Lead Placement CLINICAL | | | HISTORY: LUMBAR RADICULOPATHY AND FAILED BACK SYNDROME Juanjose Mccann | | | Tamar presents to the fluoroscopy suite for fluoroscopically-guided | | | Nevro spinal cord stimulator trial lead placement. This procedure is | | | being performed as part of conservative management for chronic pain | | | with lumbar radiculopathy and failed back syndrome. Prior to the | | | start of the procedure, the following were performed or verified, | | | including correct patient identity, correct site/side marked and | | | visible, agreement on the procedure to be done, correct patient | | | positioning and an accurate procedure consent form. Any safety | | | precautions based on clinical history and/or medication use were | | | addressed. After informed consent was obtained, the patient laid in | | | the prone position on the fluoroscopy table. 2 grams of Ancef was | | | administered via IV prior to incision. Conscious sedation was | | | administered by the radiology nurse under my direction according to | | | [facility] conscious sedation protocol. The area for the first lead | | | placement was identified under fluoroscopic guidance. The target was | | | the T12-L1 interspace. The area was prepped and draped in sterile | | | fashion. A 25-gauge, 1.5-inch needle was inserted into this region and | | | approximately 5 mL of buffered 1% lidocaine was infused. Then a | | | 25-gauge spinal needle was advanced into the same region and | | | additional lidocaine was infused to provide deeper anesthesia. A 14 | | | gauge Touhy needle was then inserted approximately 1.5 vertebral | | | bodies below the target level just lateral of midline on the right | | | and was angled down toward the interlaminar space of T12-L1. The | | | needle was slowly advanced into the epidural space until confirmation | | | of epidural access was obtained with loss of resistance. The electrode | | | array was then advanced through the introducer needle into the | | | epidural space and carefully advanced to the top of T8 along | | | a midline or just slightly left of midline trajectory. I then | | | placed a second electrode on the left, entering at the T12-L1 | | | level then advanced midline to the middle of the T9 level in a similar | | | fashion. The introducer needles were then carefully removed while | | | leaving the electrodes in place. Repeat imaging confirmed appropriate | | | placement and the electrodes were attached securely to the skin with | | | steri strips and covered with a large Tegaderm. The junction boxes | | | were attached securely on the right side. The patient was in stable | | | condition when he returned to the recovery area. Further programming | | | and education of the patient was performed while the patient was in | | | recovery. He will follow-up in the office at the end of the trial | | | period in one week. I personally performed the procedure | | | above. Conscious Sedation Start: 13:30Conscious Sedation | | | End: 14:15Estimated blood loss: MinimalComplications: | | | NoneFindings: As expectedAnesthesia: Local 1% Lidocaine and Moderate | | | Conscious Sedation with 4 mg Versed and 200 mcg Fentanyl, 25 mg | | | Benadryl | | |I personally performed the procedure above. | | | | | | | | |Conscious Sedation Start: 13:30 | | |Conscious Sedation End: 14:15 | | |Estimated blood loss: Minimal | | |Complications: None | | |Findings: As expected | | |Anesthesia: Local 1% Lidocaine and Moderate Conscious Sedation with 4 mg | | |Versed and 200 mcg Fentanyl, 25 mg Benadryl | | | | | + + + + +---------+ + + | Performing | Address | City/State/Zipcode | Phone Number | | Organization | | | | + +---------+ + + | [facility] | | | | + +---------+ + + from Last 3 Months Insurance + +--------+ +--------+ + +--------+ | Payer | Benefi | Subscriber | Effect | Phone | Address | Type | | | t Plan | ID | constantin | | | | | | / | | Dates | | | | | | Group | | | | | | + +--------+ +--------+ + +--------+ | MEDICARE | MEDICA | [id number] | 09/02/19 | [phone] | | Medica | | | RE | | 07-Pre | 5 | | re | | | PART A | | sent | | | | | | AND B | | | | | | + +--------+ +--------+ + +--------+ | MODA | MODA | [id number] | 01/02/20 | [phone] | [address] | PPO | | | HEALTH | | 11-Pre | 9 | [phone] | | | | | | sent | | [place], | | | | [place] | | | | [place] [address] | | | | [place] | | | | | | + +--------+ +--------+ + +--------+ + +--------+ +--------+ + + | Guarantor Name | Accoun | Relation to | Date | Phone | Billing Address | | | t Type | Patient | of | | | | | | | | | | + +--------+ +--------+ + + | Juanjose Boyle | Person | Self [birth year] | [address] | | | al/[place] | | 4 | [phone] | [place] | | | a[place] | | | 2 (Home) | [phone] | + +--------+ +--------+ + + Advance Directives Patient has advance care planning documents on file. For more information, please contact:[facility] [place] [address]
--- OUTSIDE RECORDS SUMMARY | ~2018-10-29 | XMS | Encounter Summary ---
Demographics + + + | Address | [address] | | | [place] [address] | + + + | Home Phone | | + + + | Preferred Language | Unknown | + + + | Marital Status | | + + + | Samaritan Affiliation | Unknown | + + + | Race | Unknown | + + + | Ethnic Group | Unknown | + + + Author + + + | Author | [facility] | | | and [place] | + + + | Organization | [facility] | | [...] Team Providers + +------+ + | Care Medicine Teacher Name | Role | Phone | + +------+ + | Hamzah Zamora | PCP | Unavailable | + +------+ + Reason for Referral Evaluate & Treat (Routine) + + + + + + + | Status | Reason | Specialty | Diagnoses / | Referred By | Referred To | | | | | Procedures | Contact | Contact | + + + + + + + | Authorized | Specialty | Orthopedic | Diagnoses | | [place], | | | Services | Surgery | Chronic | [place], | Drew Merritt DO | | | Required | | bilateral | Nick Byers MD | [address] | | | | | low back | [address] | [place] | | | | | pain with | [place] | [place] | | | | | bilateral | [place] | [address] | | | | | sciatica | [address] | Phone: | | | | | S/P lumbar | Phone: | [phone] | | | | | fusion | [phone] | Fax: | | | | | Failed back | Fax: | [phone] | | | | | syndrome of | [phone] | | | | | | lumbar spine | | | + + + + + + + Reason for Visit + + + | Reason | Comments | + + + | Follow-up | SCS trial lead removal | + + + Encounter Details +--------+---------+ + + + | Date | Type | Department | Care Team | Description | +--------+---------+ + + + | 08/20/ | Office | [facility] | Nick Ram | Chronic bilateral | | 2018 | Visit | [address]SIATRY [address] | low back pain with | | | | [place], | [place], [place] | bilateral sciatica | | | | [place] [address] | [address] | (Primary Dx); S/P | | | | [phone] | | lumbar fusion; | | | | | | Failed back syndrome | | | | | | of lumbar spine | +--------+---------+ + + + Social History + +-------+ [...] + + + + | Temperature | - | - | + + + + | Respiratory Rate | - | - | + + + + | Oxygen Saturation | - | - | + + + + | Inhaled Oxygen | - | - | | Concentration | | | + + + + | Weight | 104.3 kg (230 lb) | 08/20/20181011 PDT | + + + + | Height | 172.7 cm (5' 8") | 08/20/20181011 PDT | + + + + | Body Mass Index | 34.97 | 08/20/2018 1012 PDT | + + + + documented in this encounter Progress Notes Nick Ram MD - 08/20/2018 1000 PDTd documented in this encounter Plan of Treatment + +--------+ + + | Name | Priori | Associated Diagnoses | Order Schedule | | | ty | | | + +--------+ + + | Ambulatory referral to Orthopedic | Routin | Chronic bilateral | Ordered: 08/21/2018 | | Surgery | e | low back pain with | | | | | bilateral sciatica | | | | | S/P lumbar fusion | | | | | Failed back syndrome | | | | | of lumbar spine | | + +--------+ + + documented as of this encounter Visit Diagnoses + + | Diagnosis | + + | Chronic bilateral low back pain with bilateral sciatica - Primary | + + | S/P lumbar fusion Arthrodesis status | + + | Failed back syndrome of lumbar spine Postlaminectomy syndrome, lumbar region | + + documented in this encounter
--- OUTSIDE RECORDS SUMMARY | ~2018-10-29 | XMS | Encounter Summary ---
Demographics + + + | Address | [address] | | | [place] [address] | + + + | Home Phone | | + + + | Preferred Language | Unknown | + + + | Marital Status | | + + + | Anabaptist Affiliation | NON | + + + [...] [place], [place] | | | | | [address] | | + + + + + Care Team Providers + +------+ + | Care Cdl B Driver Name | Role | Phone | + +------+ + | Yobani Millan DO | PCP | | + +------+ + Encounter Details +--------+ + + + + | Date | Type | Department | Care Team | Description | +--------+ + + + + | 03/18/ | Transcribed | | Dictation, Other | Transcribed | | 2000 | | | | | +--------+ + [...] as of this encounter Progress Notes Interface, Campus Receptionist In - 03/08/2006 1:03 AM PDT [place] [address] [address] or March 18, 2001 Dirk Davis M.D. [facility] Department of Neurosurgery -3200 RE: SHARON ORTA MR #: [id number] Dear Dr. Davis: Thank you for consulting the [facility] regarding Mr. Sharon Orta. I evaluated today with a fellow. Please anticipate our detailed initial evaluation coming under a separate cover. As you know, Mr. Orta has had 2 lumbar spinal injuries which have resulted in a rather profound degenerative change at L5-S1. He has substantial decrease in disc height with a posterior bulge that affects his left neural foramen more than his right. He also appears to have a spondylolisthesis at this level. He was seen initially by Dr. Davis and also reportedly seen by Dr. Hayden today and was sent here for consideration for discography. He appears to have no other significant health considerations at this time. We scheduled a provocative discography/disc stimulation for the near future for Mr. Orta. The degree of disc degeneration evident on his MRI scan probably precludes IDET for him, but we will know better after we get the discography and subsequent CT. Thanks again for consulting the [facility] regarding this patient. Please feel free to contact me for any further information on this assessment. I will keep you update regarding his care here. Very truly yours, Steven Price M.D. [facility] MAYRA / YOLANDA [id number] / [id number] / [id number] / cc: Yobani Millan D.O. [address] [place] [address] Sharon Hayden M.D. [facility] Department of Orthopedic Surgery [phone] [id number] signed by Interface, Campus Receptionist In at 03/08/2006 1:03 AM PDTdocume nted in this encounter Plan of Treatment Not on filedocumented as of this encounter Visit Diagnoses Not on filedocumented in this encounter"
--- OUTSIDE RECORDS SUMMARY | ~2018-10-29 | XMS | Encounter Summary ---
Demographics + + + | Address | [address] | | | [place] [address] | + + + | Home Phone | | + + + | Preferred Language | Unknown | + + + | Marital Status | | + + + | Mormonism Affiliation | NON | + + + | Race | White | + + + | Ethnic Group | Not or | + + + Author + + + | Author | [facility] | + + + | Organization | [facility] | + + + | Address | Unknown | + + + | Phone | Unavailable | + + + Support + + + + + | Name | Relationship | Address | Phone | + + + + + | Brandi Boyle | YURIY | [address] | | | | | [place], [place] | | | | | [address] | | + + + + + Care Team Providers + +------+ + | Care Mechanic Industrial Truck Name | Role | Phone | + [...] [address] | | | | | [facility] | [address] [place], [place] | | | | | Mailcode: [id number] | [address] | | | | | Physician's Praneeth | | | | | | [place], [place] | | | | | | [address] | | | | | | [phone] | | | +--------+ + + + [...] | | | | | | five [id number] | | | | | | lumbar-type [...] | | + +---------+ + + | [facility] | | | | | [...] | | | | | | five [id number] | | | | | | lumbar-type [...] | | + +---------+ + + | [facility] | | | | | [...] | | + +---------+ + + | [facility] | | | | | RADIOLOGY | | | | + +---------+ + + documented in this encounter Visit Diagnoses Not on filedocumented in this encounter"
--- OUTSIDE RECORDS SUMMARY | ~2018-10-29 | XMS | Encounter Summary ---
Demographics + + + | Address | [address] | | | [place] [address] | + + + | Home Phone | | + + + | Preferred Language | Unknown | + + + | Marital Status | | + + + | Evangelical Affiliation | Unknown | + + + | Race | Unknown | + + + | Ethnic Group | Unknown | + + + Author + + + | Author | [facility] | | | and [place] | + + + | Organization | [facility] | | | and [...] Team Providers + +------+ + | Care Lathe Scalper Operator Name | Role | Phone | + +------+ + | Hamzah Zamora | PCP | Unavailable | + +------+ + Reason for Visit + + + | Reason | Comments | + + + | Back Pain | Low back and bilateral leg pain | + + + Encounter Details +--------+---------+ + + + | Date | Type | Department | Care Team | Description | +--------+---------+ + + + | 08/13/ | Office | [facility] | Nick Ram | Failed back syndrome | | 2019 | Visit | [address]SIATRY [address] | of lumbar spine | | | | [place], | [place] | (Primary Dx); S/P | | | | [place] [address] | [address] | lumbar fusion; | | | | [phone] | | Chronic bilateral | | | | | | low back pain with | | | | | | bilateral sciatica | +--------+---------+ + + + Social History [...] + + + | Blood Pressure | 117/77 | 08/13/20185 PDT | + + + + | Pulse | 59 | 08/13/20185 PDT | + + + + | Temperature | - | - | + + + + | Respiratory Rate | - | - | + + + + | Oxygen Saturation | - | - | + + + + | Inhaled Oxygen | - | - | | Concentration | | | + + + + | Weight | 97.5 kg (215 lb) | 08/13/20181134 PDT | + + + + | Height | 172.7 cm (5' 8") | 08/13/20181134 PDT | + + + + | Body Mass Index | 32.69 | 08/13/2018 1135 PDT | + + + + documented in this encounter Plan of Treatment Not on filedocumented as of this encounter Visit Diagnoses + + | Diagnosis | + + | Failed back syndrome of lumbar spine - Primary Postlaminectomy syndrome, lumbar | | region | + + | S/P lumbar fusion Arthrodesis status | + + | Chronic bilateral low back pain with bilateral sciatica | + + documented in this encounter
--- OUTSIDE RECORDS SUMMARY | ~2018-10-29 | XMS | Encounter Summary ---
Demographics + + + | Address | [address] | | | [place] [address] | + + + | Home Phone | | + + + | Preferred Language | Unknown | + + + | Marital Status | | + + + | Cheondoism Affiliation | NON | + + + | Race | White | + + + | Ethnic Group | Not or | + + + Author + + + | Author | [facility] | + + + | Organization | [facility] | + + + | Address | Unknown | + + + | Phone | Unavailable | + + + Support + + + + + | Name | Relationship | Address | Phone | + + + + + | Brandi Boyle | YURIY | [address] | | | | | [place], [place] | | | | | [address] | | + + + + + Care Team Providers + +------+ + | Care Pumper Helper Name | Role | Phone | + +------+ + | Yobani Millan DO | PCP | | + +------+ + Encounter Details +--------+ + + + + | Date | Type | Department | Care Team | Description | +--------+ + + + + | 03/18/ | Office | [facility] | Note, [...] as of this encounter Progress Notes Interface, Clerk General Office In - 03/08/2006 1:03 AM PDTCLINIC DATE: 03/18/2001 ORTHOPEDIC CLINIC HISTORY OF PRESENT ILLNESS: Mr. Boyle is a new patient. He is a 45-year-old gentleman referred by Dr. Yobani Millan. Mr. Boyle comes to me with complaints of low back and leg pain. The lower extremity pain is present in the buttocks and in the sides of the legs. He states that the lower extremity has been present increasingly over the past 2-3 months. This is probably increased following a fall on to his back and buttocks. Overall, his symptoms have been present over a period of 2 years. He has not undergone prior surgery to the lumbar spine. He has had significant conservative treatment including manipulation of the spine as well as physical therapy. He is now having significant leg weakness more in the upper aspect of the legs than in the lower aspects. He denies bowel or bladder symptoms. He is currently scheduled for a diskography here by Dr. Price. He has not been working since January 15, 2001. 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 There have been no other complaints of note. PAST MEDICAL HISTORY: Otherwise, completely negative. PAST SURGICAL HISTORY: Treatment of the nose in 2000 as well as treatment of the foot 1997. He denies prior fractures or injuries. MEDICATIONS: Medications include only Endodan. ALLERGIES: VICOPROFEN WHICH PRODUCES ITCHING. PSYCHOSOCIAL HISTORY: As above with respect to work history. He denies tobacco but does use moderate alcohol. He is not treated for depression or psychiatric illness. REVIEW OF SYSTEMS: Otherwise completely negative to all questions on the preprinted form. FAMILY HISTORY: Noncontributory. PHYSICAL EXAMINATION: GENERAL: Well-formed, well-nourished gentleman in no acute distress. He appears his stated age. VITAL SIGNS: Within normal limits. PSYCHIATRIC: Affect is normal. MUSCULOSKELETAL: Examination of the lumbar spine demonstrates no skin changes or areas of induration. There are no masses or surgical incisions. His range of motion is completely normal in flexion, extension, lateral bending, and axial rotation. There is no hysterical responses to the examination. DIAGNOSTIC STUDIES: Review of his imaging studies includes an MRI which demonstrates an isolated and profound degenerative disk disease at L5-S1. There is no spondylolisthesis or evidence of instability. The date of the exam is from 1999. ASSESSMENT: My assessment is that Mr. Boyle has a prevalent degenerative disk disease at L5-S1 with radiculopathy and complete collapse of his disk. I do think that he would be most appropriately treated by an initial interbody fusion rather than a decompressive procedure. This is due to the significant aspect of back pain which is part of his symptom complex. In addition, his radiographic appearance is not consistent with neurologic compression as the primary etiology of his pain. I have discussed that my recommendation would be for an L5-S1 interbody fusion with posterior translaminar screws. I am not certain that a diskogram is necessary based on the MRI which demonstrates true 1 level disease here. He, however, is scheduled for this and will be proceeding. I have given him my card with Kathleen Rodriguez's number should he desire to schedule the surgery described. If so, we will obtain approval from his insurance carrier and proceed along these lines. I believe that these are also the recommendations that he was given by Dr. Dirk Davis who had previously seen him as well. Juanjose Hayden M.D. / YOLANDA [id number] / [id number] / [id number] / cc: Yobani Millan D.O. [address] [place], [place] [id number] signed by Interface, Clerk General Office In at 03/08/2006 1:0 3 AM PDTInterface, Clerk General Office In - 03/08/2006 1:03 AM PDTCLINIC DATE: 03/18/2001 [facility] REFERRING PHYSICIAN: Dirk Davis M.D. CHIEF COMPLAINT: Low back pain. HISTORY OF PRESENT ILLNESS: Mr. Boyle is a 45-year-old gentleman with chief complaint of low back pain since May 1999 or June 1999. 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 He was probably lifting some objects and had an injury to his back. The patient saw a chiropractor for his injury and did not have good results with manipulations. Today, he describes his pain as a bit more localized in his lower back. It is deep in his muscles and nerves. He describes it as a throbbing, shooting, stabbing, pinching, stinging, tiring kind of pain which is present constantly, and currently it is a 7/10 right now. It is worse at the end of day. Working, climbing stairs, bending forwards, lifting, bending backwards, sitting, walking, and standing, all exacerbated his pain, and the pain is relieved only by medications. The patient is trying physical therapy, epidural steroid injections, manipulations, acupuncture but nothing has given him longstanding relief. In January,, the patient fell off his truck and injured his back again which resulted in exacerbation of his symptoms. At that time, he developed a radiculopathy with symptoms of pain radiating down his legs, but currently the patient has no symptoms of pain radiating anywhere except from his lower back down to his buttocks. His left hip and his left buttock is more painful than the right side. His pain is not associated with any swelling or color changes. He does not describe any changes and is able to urinate or to have bowel movements. He says that his sexual function has decreased because of the pain. He also feels that the pain relieves with getting to sleep and once every night he might wake up in pain. He averages about 7-8 hours of sleep each night. Since January 15, 2001, since his fall from the truck, he has not been to work, and he is on medical leave. The patient has undergone and x-rays and MRIs and bone scans which were reviewed today. He denies any disorder or any history of depression and has no suicidal ideations. The patient feels that his lower back interferes with his general activity, his walking ability, normal work, enjoyment of life, sexual activity, and sleep. PAST MEDICAL HISTORY: Insignificant. There is no cardiovascular, respiratory, , musculoskeletal, or neurological issues. No history of any asthma, diabetes, or high blood pressure. The patient states that because of the pain medications he was on, he had developed some bowel problems and bleeding from his gastrointestinal tract. CURRENT MEDICATIONS: Endodan once a day. The patient has tried Vicoprofen, Vicodin, methocarbamol, and Vioxx in the past but has not been very effective for him. PAST SURGICAL HISTORY: Surgery in his muscles of left foot. SOCIAL HISTORY: The patient is . He lives with his and a child. He has 4 children who are healthy. He enjoys hunting, carpentry and train riding. He denies tobacco use but drinks alcohol, 1 drink a week. 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 PHYSICAL EXAMINATION: VITAL SIGNS: His weight 205 pounds, height 5 feet 8 inches, blood pressure 116/72, heart rate 76, respiratory rate 16, temperature 36.5, and pain score of 7/10. GENERAL: The patient is well groomed. He has an engaging interaction and a calm behavior. His mobility is good, but he walks with his toes pointed up. He is well developed and well nourished. CHEST: Clear to auscultation. HEART: Regular rate and rhythm. ABDOMEN: Soft but he has subcutaneous palpable lumps consistent with lipomas. BACK: On examination of his lumbar spine, his lumbar range of motion flexion is 90 degrees and begins to be painful at 70 degrees. Extension 20 degrees associated with no back pain, light rotation and extension 25 degrees, and left rotation and extension 45 degrees associated with no back pain. His march bilaterally well decreased in sacroiliac range of motion. His straight leg raising positive right 80 degrees associated with pulling and left 80 degrees associated with pulling. Nikunj sign is negative. Sensory: Normal in bilateral lower extremities. His reflexes are symmetrical bilaterally 2+ in both upper and lower extremities, and his motor strength is 5/5 in both lower extremities. IMPRESSION 1. Mechanical low back pain associated with degenerative disk disease. 2. There is deactivation and deconditioning. PLAN: The patient has been referred to us by Dr. Dirk Davis for diskography. The patient was explained about the procedure and a detail PARQ discussion was held. The patient was also given written information about the diskography procedure and a written consent was obtained. The patient was asked to schedule a diskography. During this entire evaluation as well as formulation of the plan, Dr. Steven Price was present. Rema Flores M.D. Numerical Control Programmer, Department of Anesthesiology [facility] / YOLANDA [id number] / [id number] / [id number] / cc: Yobani Millan M.D. [address] [place] [address] Dirk Davis M.D. [facility] Neurosurgery [id number] Juanjose Hayden M.D. [facility] Orthopedics [id number] signed by Interface, Clerk General Office In at 03/08/2006 1:03 AM PDTdocume nted in this encounter Plan of Treatment Not on filedocumented as of this encounter Visit Diagnoses Not on filedocumented in this encounter
--- OUTSIDE RECORDS SUMMARY | ~2018-10-29 | XMS | Encounter Summary ---
Demographics + + + | Address | [address] | | | [place] [address] | + + + | Home Phone | | + + + | Preferred Language | Unknown | + + + | Marital Status | | + + + | Gnosticism Affiliation | NON | + + + | Race | White | + + + | Ethnic Group | Not or | + + + Author + + + | Author | [facility] | + + + | Organization | [facility] | + + + | Address | Unknown | + + + | Phone | Unavailable | + + + Support + + + + + | Name | Relationship | Address | Phone | + + + + + | Brandi Boyle | YURIY | [address] | | | | | [place], [place] | | | | | [address] | | + + + + + Care Team Providers + +------+ + | Care Roof Fixer Name | Role | Phone | + +------+ + | Yobani Millan DO | PCP | | + +------+ + Encounter Details +--------+ + + + + | Date | Type | Department | Care Team | Description | +--------+ + + + + | 10/03/ | Office | [facility] | Note, [...] as of this encounter Progress Notes Interface, Shellfish Grower In - 02/03/2006 3:12 AM PDTCLINIC DATE: 10/03/2001 ORTHOPEDIC CLINIC HISTORY OF PRESENT ILLNESS: Mr. Boyle returns. He continues to struggle with severe back and lower extremity pain. The pain in his legs now is not limited to the thighs but radiates at times to the feet. It has no actual quality. It is symmetric in its location, left to right. He denies bowel or bladder symptoms. The electric-type pain has been present over the last 1 month. He is now almost 6 months out from surgery. CURRENT MEDICATIONS: He has been taking Neurontin as well as oxycodone. PHYSICAL EXAMINATION: Unchanged. DIAGNOSTIC DATA: I again reviewed all of his prior studies as well as the recent MRI. The MRI of the cervical spine does not show significant compression posterior to the cages. Again, the screws appear intact and appropriately located. There is no disk above that appears to be wearing out or having a problem. I again reviewed a CT myelogram from before which similarly shows no neurologic compression and no hardware malplacement. His fusion appears to be progressing well. I have also reviewed his EMG which demonstrated no significant lower extremity radiculopathy. At this point, I simply do not know what is causing Mr. Boyle's difficulties. I have relayed to him that I have seen other patients treated elsewhere who similarly had persistent lower extremity and backache following a fusion without a structural reason that I could identify. Certainly, surgically things went beautifully, and the hardware appears to be appropriately located with continued interval progression of his fusion without difficulty. In addition, I do not see any evidence of adjacent segment problems. Mr. Boyle does remain frustrated with his situation. I have indicated that at this point I would either need to consider repeating some of the steps in the workup we have performed such as a new EMG and CT myelogram or consider a referral to a different type of specialist. I do not have other studies that we have not yet used to try to assess his situation. I am not against repeating his studies as his symptoms have changed to some extent over time; however, I am not optimistic that they would disclose a structural problem. In the interim, I think we are going to continue with physical therapy and try to wean him off some of the psychoactive medicine. In particular, I think we can come down on the Neurontin and would like to decrease the narcotics he is using and also oxycodone to something less strong such as Vicodin. He actually is in agreement with this and would like to pursue this course. I will schedule a return appointment in approximately 3 months. On his return, we should obtain AP and lateral flexion extension view of the lumbar spine. Juanjose Hayden M.D. / [id number] / [id number] / [id number] / C: 10/21/2001 [facility] cc: Yobani Millan D.O. [address] [place], [place] [id number] signed by Interface, Shellfish Grower In at 02/03/2006 3:1 2 AM PDTdocumented in this encounter Plan of Treatment Not on filedocumented as of this encounter Visit Diagnoses Not on filedocumented in this encounter"
--- OUTSIDE RECORDS SUMMARY | ~2018-10-29 | XMS | Encounter Summary ---
Demographics + + + | Address | [address] | | | [place] [address] | + + + | Home Phone | | + + + | Preferred Language | Unknown | + + + | Marital Status | | + + + | Islam Affiliation | NON | + + + | Race | White | + + + | Ethnic Group | Not or | + + + Author + + + | Author | [facility] | + + + | Organization | [facility] | + + + | Address | Unknown | + + + | Phone | Unavailable | + + + Support + + + + + | Name | Relationship | Address | Phone | + + + + + | Brandi Boyle | YURIY | [address] | | | | | [place], [place] | | | | | [address] | | + + + + + Care Team Providers + +------+ + | Care Electroencephalogram Technologist Name | Role | Phone | + +------+ + | Yobani Millan DO | PCP | | + +------+ + Encounter Details +--------+ + + + + | Date | Type | Department | Care Team | Description | +--------+ + + + + | 04/18/ | Office | [facility] | Note, [...] as of this encounter Progress Notes Interface, Promos Executive Producer In - 03/03/2006 10:28 AM PDTCLINIC DATE: 04/18/2001 ORTHOPEDIC CLINIC SUBJECTIVE: Mr. Boyle presents to the clinic today for preoperative evaluation. He is scheduled for an L5-S1 anterior interbody fusion and diskectomy, insertion of prosthetic device, iliac crest bone graft, and a posterior nonsegmental fixation L5-S1, and posterior spinal fusion with Dr. Hayden on April 28, 2001. His history and physical was performed and recorded in the preoperative packet. Risks of surgery were discussed and all questions answered. Consent for surgery was freely signed. The consent form and preoperative packet were faxed to the [facility]. The patient was also seen and evaluated by Dr. Juanjose Hayden. Films obtained today: AP and lateral flexion and extension. The patient will also bring his MRI films to his surgery. DIAGNOSIS: L5-S1 degenerative disk disease with radiculopathy. Bubba Karimi M.D. [facility] / YOLANDA [id number] / [id number] / [id number] / [id number] Tdocumented in this encounter Plan of Treatment Not on filedocumented as of this encounter Visit Diagnoses Not on filedocumented in this encounter"
--- OUTSIDE RECORDS SUMMARY | ~2018-10-29 | XMS | Clinical Summary ---
Demographics + + + | Address | [address] | | | [place] [address] | + + + | Home Phone | | + + + | Preferred Language | Unknown | + + + | Marital Status | | + + + | Mu-Ism Affiliation | NON | + + + | Race | White | + + + | Ethnic Group | Not or | + + + Author + + + | Author | [facility] | + + + | Organization | [facility] | + + + | Address | Unknown | + + + | Phone | Unavailable | + + + Support + + + + + | Name | Relationship | Address | Phone | + + + + + | Brandi Boyle | ECON | [address] | | | | | [place] | | | | | [address] | | + + + + + Care Team Providers + +------+ + | Care Housefellow Name | Role | Phone | + +------+ + | Yobani Millan DO | PP | | + +------+ + Source Comments JOSAFAT is fully live on both [facility] Ambulatory and [facility] InPatient.[facility] Allergies No Known Allergies Medications + + + +---------+------+------+-------+ | Medication | Sig | Dispensed | Refills | Star | End | Statu | | | | | | t | Date | s | | | | | | Date | | | + + + +---------+------+------+-------+ | VICODIN 5 MG-500 | take 1 tablet by | | 0 | | | Activ | | MG TAB | oral route every 4-6 | | | | | e | | | hours as needed for | | | | | | | | pain | | | | | | + + + +---------+------+------+-------+ | AMBIEN 10 MG TAB | take 1 tablet (10mg) | | 0 | | | Activ | | | by oral route once | | | | | e | | | daily at bedtime as | | | | | | | | needed | | | | | | + + + +---------+------+------+-------+ | CYCLOBENZAPRINE OR | None Entered | | 0 | | | Activ | | | | | | | | e | + + + +---------+------+------+-------+ Active Problems Not on file Social History + +-------+ +--------+------+ | Tobacco [...] recent travel history available. | + + Plan of Treatment + + + + + | Health Maintenance | Due Date | Last Done | Comments | + + + + + | Influenza (Flu) | | | | | vaccination (Season | 9 | | | | Ended) | | | | + + + + + Results Not on filefrom Last 3 Months"
--- OUTSIDE RECORDS SUMMARY | ~2018-10-29 | XMS | Encounter Summary ---
Demographics + + + | Address | [address] | | | [place] [address] | + + + | Home Phone | | + + + | Preferred Language | Unknown | + + + | Marital Status | | + + + | Rastafarian Affiliation | NON | + + + | Race | White | + + + | Ethnic Group | Not or | + + + Author + + + | Author | [facility] | + + + | Organization | [facility] | + + + | Address | Unknown | + + + | Phone | Unavailable | + + + Support + + + + + | Name | Relationship | Address | Phone | + + + + + | Brandi Boyle | YURIY | [address] | | | | | [place], [place] | | | | | [address] | | + + + + + Care Team Providers + +------+ + | Care Ticket Collector Or Usher Name | Role | Phone | + +------+ + | Yobani Millan DO | PCP | | + +------+ + Encounter Details +--------+ + + + + | Date | Type | Department | Care Team | Description | +--------+ + + + + | 04/29/ | DELETED | Preoperative | Consult, | ANESTHESIA/SEDATION | | 2000 | TRANSCRIPTI | Medicine Clinic at | Anesthesia [address] | | | | ON | [facility] 4th Floor [address] | | | | | [address] | Road [place], [place] | | | | | Code: [address] | [address] | | | | | for Health and | | | | | | Healing,4th Floor | | | | | | [place], [place] | | | | | | [address] | | | | | | [phone] | | | +--------+ + + + [...] + + + documented in this encounter Visit Diagnoses Not on filedocumented in this encounter"
--- OUTSIDE RECORDS SUMMARY | ~2018-10-29 | XMS | Encounter Summary ---
Demographics + + + | Address | [address] | | | [place] [address] | + + + | Home Phone [...] Author | [facility] | + + + | Organization | [facility] | + + + | Address | Unknown | + + + | Phone | Unavailable | + + + Support + + + + + | Name | Relationship | Address | Phone | + + + + + | Brandi Boyle | YURIY | [address] | | | | | [place], [place] | | | | | [address] | | + + + + + Care Team Providers + +------+ + | Care Phlebotomy Technician Name | Role | Phone | + [...] [address] | | | | | [facility] | [address] [place], [place] | | | | | Mailcode: [id number] | [address] | | | | | Phys[address] | | | | | | [place], [place] | | | | | | [address] | | | | | | [phone] | | | +--------+ + + + [...] | | + +---------+ + + | [facility] DEPARTMENT OF | | | | | [...] + + + + | PRODUCT | [id number] | | [facility] | | | UNIT [...] + | [place] DEPARTMENT OF | [address] | [place] [address] | | | PATHOLOGY | [address] | | | + + + + + | [place] DEPARTMENT OF | [address] | [place] [address] | | | PATHOLOGY | [address] [...] DEPARTMENT OF | [address] | [place] [address] | | | PATHOLOGY | [address] | | | + + + + + | [facility] DEPARTMENT OF | [address] | [place] [address] | | | PATHOLOGY | [address] [...] + + + + | PRODUCT | [id number] | | [facility] | | | UNIT [...] | + + + + + | [facility] | [address] | [place] [address] | | | PATHOLOGY | [address] | | | + + + + + | [facility] | [address] | [place] [address] | | | PATHOLOGY | [address] [...] | | | | | | through [id number] normal. | | | | | | [...] | | + +---------+ + + | [facility] DEPARTMENT OF | | | | | RADIOLOGY | | | | + +---------+ + + documented in this encounter Visit Diagnoses Not on filedocumented in this encounter"
--- OUTSIDE RECORDS SUMMARY | ~2018-10-29 | XMS | Encounter Summary ---
Demographics + + + | Address | [address] | | | [place] [address] | + + + | Home Phone | | + + + | Preferred Language | Unknown | + + + | Marital Status | | + + + | Taoism Affiliation | NON | + + + | Race | White | + + + | Ethnic Group | Not or | + + + Author + + + | Author | [facility] | + + + | Organization | [facility] | + + + | Address | Unknown | + + + | Phone | Unavailable | + + + Support + + + + + | Name | Relationship | Address | Phone | + + + + + | Brandi Boyle | YURIY | [address] | | | | | [place], [place] | | | | | [address] | | + + + + + Care Team Providers + +------+ + | Care Marketing Communications Specialist Name | Role | Phone | [...] W | | | | ON | [facility] 4th Floor [address] | | | | | [address] | Road [place], [place] | | | | | Code: [address] | [address] | | | | | for Health and | | | | | | Healing,4th Floor | | | | | | [place], [place] | | | | | | [address] | | | | | | [phone] | | | +--------+ + + + [...]
--- OUTSIDE RECORDS SUMMARY | ~2018-10-29 | XMS | Encounter Summary ---
Demographics + + + | Address | [address] | | | [place] [address] | + + + | Home Phone | | + + + | Preferred Language | Unknown | + + + | Marital Status | | + + + | Latter Day Affiliation | NON | + + + | Race | White | + + + | Ethnic Group | Not or | + + + Author + + + | Author | [facility] | + + + | Organization | [facility] | + + + | Address | Unknown | + + + | Phone | Unavailable | + + + Support + + + + + | Name | Relationship | Address | Phone | + + + + + | Brandi Boyle | YURIY | [address] | | | | | [place], [place] | | | | | [address] | | + + + + + Care Team Providers + +------+ + | Care Stock Manager Name | Role | Phone | + [...] as of this encounter Progress Notes Interface, Cdc Associate In - 02/19/2006 1:11 AM PDTCLINIC DATE: [...] I think this can be done in [place], and the results can simply be mailed to me in order to save them a trip down. I will schedule a return appointment in 6 weeks. On his return, we shall obtain AP, flexion, and extension views of the lumbar spine. Juanjose Hayden M.D. / YOLANDA [id number] / [id number] / [id number] / cc: Yobani Millan D.O. [address] [place], [place] [id number] signed by Interface, Cdc Associate In at 02/19/2006 1:1 1 AM PDTdocumented in this encounter Plan of Treatment Not on filedocumented as of this encounter Visit Diagnoses Not on filedocumented in this encounter"
--- OUTSIDE RECORDS SUMMARY | ~2018-10-29 | XMS | Encounter Summary ---
Demographics + + + | Address | [address] | | | [place] [address] | + + + | Home Phone | | + + + | Preferred Language | Unknown | + + + | Marital Status | | + + + | Buddhist Affiliation | NON | + + + [...] [place], [place] | | | | | [address] | | + + + + + Care Team Providers + +------+ + | Care Executive Admin Name | Role | Phone | + [...] | Lumbar Spinal | | | | [address] | [address] [place], [place] | Stenosis | | | | Mailcode: [id number] | [address] | | | | | [facility] | | | | | | [place], [place] | | | | | | [address] | | | | | | [phone] | | | +--------+---------+ + + + [...] B/B sx. Still sees Dr. Millan in [place]. Exam is unchanged since last visit, as is pmh. retired from the [employer] [facility]. CT scan shows that both SI [...]
--- OUTSIDE RECORDS SUMMARY | ~2018-10-29 | XMS | Encounter Summary ---
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
--- OUTSIDE RECORDS SUMMARY | ~2018-10-29 | XMS | Encounter Summary ---
Demographics + + + | Address | [address] | | | [place] [address] | + + + | Home Phone | | + + + | Preferred Language | Unknown | + + + | Marital Status | | + + + | Advent Affiliation | NON | + + + [...] [place], [place] | | | | | [address] | | + + + + + Care Team Providers + +------+ + | Care Lead Advisor Name | Role | Phone | + +------+ + | Yobani Zelaya DO | PCP | | + +------+ + Encounter Details +--------+ + + + + | Date | Type | Department | Care Team | Description | +--------+ + + + + | 05/02/ | Discharge | | Summary, Discharge | D/C Summary ODDS | | 2000 | Summary-Tra | | | | | | nscribed | | | | +--------+ + + [...] + + documented as of this encounter Discharge Summaries Interface, Conference Services Director In - 03/03/2006 10:[address] [address] [facility] MEDICAL SUMMARY OF HOSPITALIZATION Med Rec No: [id number] Admission Date: 04/28/2001 Name: Juanjose Boyle Discharge Date: 05/02/2001 STAFF PHYSICIAN: Juanjose Hayden M.D. PRINCIPAL FINAL DIAGNOSIS: 1. 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 2. L5-S1 radiculopathy, left worse than right. ADDITIONAL DIAGNOSES: None. PRINCIPAL PROCEDURE: 1. Posterior lumbar fusion, L5-S1. 2. Right iliac crest bone graft, separate incision. 3. Non-segmental spinal fixation, L5-S1 (translaminar screws). 4. Anterior lumbar diskectomy, L5-S1. 5. Anterior lumbar fusion, L5-S1. 6. Insertion of prosthetic device, L5-S1 (Danek LT fusion cage times two). REASON FOR ADMISSION: The patient is a 55-year-old gentleman with a long history of severe axial backache. He had profound spinal stenosis and radicular symptoms. He was evaluated radiographically using an MRI, which disclosed single-level disk disease at the L5-S1, with complete collapse of the disk at that location. He underwent a diskogram with confirmation that the L5-S1 was the painful disk, without significant pain in the adjacent levels. He was indicated for interbody fusion at L5-S1, with posterior supplementation using translaminar screws. HOSPITAL COURSE: The patient was admitted to the hospital on 04/28/01 and taken to the operating room, where he underwent the aforementioned procedure. Following the operation, he was noted to be in stable and satisfactory condition in the Post-Anesthesia Care Unit. Of nose, Dr. Bacon assisted with the procedure in developing the exposure for Dr. Hayden. The patient was transferred to the floor in stable and satisfactory condition. The remainder of the hospital course was stable and unremarkable. The patient tolerated the advancement of his diet. He tolerated the removal of his Carpenter catheter and was able to urinate on his own. His postoperative pain was initially controlled with a morphine patient-controlled analgesia. Later, his medication was switched over to oral narcotics, and his pain was adequately controlled with scheduled Tylenol and p.r.n. oxycodone. His incision remained clean, dry, and intact, with minimal serosanguineous discharge. There was no evidence of infection at the site. The drain was removed, and IV Ancef was stopped after removal of the drain. The patient was mobilized with Physical Therapy, who cleared him for discharge to home. The patient had advancement of bowel functioning and had regular bowel movements and flatus following the procedure. He was discharged on postoperative day no. 4 in good health with necessary follow-up. CONDITION ON DISCHARGE: Not dictated. DISPOSITION: The patient is discharged to home. DISCHARGE INSTRUCTIONS: 1. The patient is instructed to follow up in the Orthopedics Clinic with Dr. Hayden: 1) in two weeks in the [facility] for removal of his tim; 2) in six weeks for assessment by Dr. Hayden. 2. Diet: Regular diet as tolerated. 3. Activity: Ambulate as tolerated. DISCHARGE MEDICATIONS: 1. Tylenol, 1000 mg p.o. q.6h. 2. Senokot, 2 tabs. p.o. b.i.d. 3. Dulcolax suppositories, 1___ p.o. q.d., p.r.n. 4. Oxycodone, 5 to 15 mg, q.4h., p.r.n. #51 disp. Rafael Higginbotham M.D. Juanjose Hayden M.D. /x62 cc: YOBANI ZELAYA MD (ALT) [address] [place] [address] [id number] signed by Interface, Conference Services Director In at 03/03/2006 10:28 AM [facility] this encounter Plan of Treatment Not on filedocumented as of this encounter Visit Diagnoses Not on filedocumented in this encounter"
--- OUTSIDE RECORDS SUMMARY | ~2018-10-29 | XMS | Encounter Summary ---
Demographics + + + | Address | [address] | | | [place] [address] | + + + | Home Phone | | + + + | Preferred Language | Unknown | + + + | Marital Status | | + + + | Taoism Affiliation | NON | + + + | Race | White | + + + | Ethnic Group | Not or | + + + Author + + + | Author | [facility] | + + + | Organization | [facility] | + + + | Address | Unknown | + + + | Phone | Unavailable | + + + Support + + + + + | Name | Relationship | Address | Phone | + + + + + | Brandi Boyle | YURIY | [address] | | | | | [place], [place] | | | | | [address] | | + + + + + Care Team Providers + +------+ + | Care Nitriles Lab Technician Name | Role | Phone | [...] as of this encounter Progress Notes Interface, Talent Acquisition Relationship Manager In - 02/19/2006 1:11 AM PDTCLINIC DATE: [...] concerns arise. Juanjose Hayden M.D. / YOLANDA [id number] / [id number] / [id number] / cc: Yobani Millan D.O. [address] [place], [place] [id number] signed by Interface, Talent Acquisition Relationship Manager In at 02/19/2006 1:1 1 AM PDTdocumented in this encounter Plan of Treatment Not on filedocumented as of this encounter Visit Diagnoses Not on filedocumented in this encounter
--- OUTSIDE RECORDS SUMMARY | ~2018-10-29 | XMS | Encounter Summary ---
Demographics + + + | Address | [address] | | | [place] [address] | + + + | Home Phone | | + + + | Preferred Language | Unknown | + + + | Marital Status | Unknown | + + + | Jew Affiliation | Unknown | + + + | Race | Unknown | + + + | Ethnic Group | Unknown | + + + Author + + + | Author | [facility] | + + + | Organization | [facility] | + + + | Address | Unknown | + + + | Phone | Unavailable | + + + Care Team Providers + +------+ + | Care Estate Planner Name | Role | Phone | + +------+ + PCP | Unavailable | + +------+ + Encounter Details +--------+ + + + + | Date | Type | Department | Care Team | Description | +--------+ + + + + | 10/21/ | Lab | [facility] | [facility] | | | 2018 | Requisition | [address] | A, Leasing Sales Consultant | | | | | [place] [address] | | | | | | [phone] | | | +--------+ + + + [...] on file | | + + + as of this encounter Plan of Treatment Not on fileas of this encounter Visit Diagnoses Not on filein this encounter"
--- OUTSIDE RECORDS SUMMARY | ~2018-10-29 | XMS | Encounter Summary ---
Demographics + + + | Address | [address] | | | [place] [address] | + + + | Home Phone | | + + + | Preferred Language | Unknown | + + + | Marital Status | | + + + | Mosque Affiliation | NON | + + + [...] [place], [place] | | | | | [address] | | + + + + + Care Team Providers + +------+ + | Care Director Of Human Resources Name | Role | Phone | + +------+ + | Yobani Millan DO | PCP | | + +------+ + Encounter Details +--------+ + + + + | Date | Type | Department | Care Team | Description | +--------+ + + + + | 05/29/ | Office | [facility] | Note, [...] as of this encounter Progress Notes Interface, Regulatory Analyst In - 02/19/2006 1:11 AM PDTCLINIC DATE: 05/29/2001 [facility] The patient phoned today requesting refill on his Soma. This is okayed today by Cristine Kwon, physician's certified pathology assistant, for Soma #[id number] which was phoned into [facility] at [phone]. Audelia Page M.D. / YOLANDA [id number] / [id number] / [id number] / Tdocumented in this encounter Plan of Treatment Not on filedocumented as of this encounter Visit Diagnoses Not on filedocumented in this encounter"
--- OUTSIDE RECORDS SUMMARY | ~2018-10-29 | XMS | Encounter Summary ---
Demographics + + + | Address | [address] | | | [place] [address] | + + + | Home Phone | | + + + | Preferred Language | Unknown | + + + | Marital Status | | + + + | Shinto Affiliation | NON | + + + | Race | White | + + + | Ethnic Group | Not or | + + + Author + + + | Author | [facility] | + + + | Organization | [facility] | + + + | Address | Unknown | + + + | Phone | Unavailable | + + + Support + + + + + | Name | Relationship | Address | Phone | + + + + + | Brandi Boyle | YURIY | [address] | | | | | [place], [place] | | | | | [address] | | + + + + + Care Team Providers + +------+ + | Care Police Chief Name | Role | Phone | + [...] Road | | | | | | [place], [place] | | | | | | [address] | | | +--------+ + + + [...] | + + | 04/29/2001 11:03 AM [facility] Anesthesia PostOp Report | | | | Patient: YOU SHARON Med Rec: [id number] Neil M Bdate: 1955 | | Date/Time Data | | Entered Into [facility] | | Anesth PostOp | | Surgery Date [id number] 04/29/01 11:03 | | Anesthesiologist RHINA GREEN [...]
--- OUTSIDE RECORDS SUMMARY | ~2018-10-29 | XMS | Encounter Summary ---
Demographics + + + | Address | [address] | | | [place] [address] | + + + | Home Phone | | + + + | Preferred Language | Unknown | + + + | Marital Status | | + + + | Bahai Affiliation | NON | + + + | Race | White | + + + | Ethnic Group | Not or | + + + Author + + + | Author | [facility] | + + + | Organization | [facility] | + + + | Address | Unknown | + + + | Phone | Unavailable | + + + Support + + + + + | Name | Relationship | Address | Phone | + + + + + | Brandi Boyle | YURIY | [address] | | | | | [place], [place] | | | | | [address] | | + + + + + Care Team Providers + +------+ + | Care Siphon Operator Name | Role | Phone | [...] as of this encounter Progress Notes Interface, Technical Writer And Editor In - 02/23/2006 3:02 AM PDTCLINIC DATE: [...] not currently taking oxycodone. Grace Everett / [id number] / [id number] / [id number] / [id number] Tdocumented in this encounter Plan of Treatment Not on filedocumented as of this encounter Visit Diagnoses Not on filedocumented in this encounter"
--- OUTSIDE RECORDS SUMMARY | ~2018-10-29 | XMS | Clinical Summary ---
Demographics + + + | Address | [address] | | | [place] [address] | + + + | Home Phone | | + + + | Preferred Language | Unknown | + + + | Marital Status | Unknown | + + + | Zoroastrianism Affiliation | Unknown | + + + | Race | Unknown | + + + | Ethnic Group | Unknown | + + + Author + + + | Author | [facility] | + + + | Organization | [facility] | + + + | Address | Unknown | + + + | Phone | Unavailable | + + + Care Team Providers + +------+ + | Care Supervisor Offset Plate Preparation Name | Role | Phone | + [...] | 2019 | Requisition | | A, Manager Data Center | | +--------+ + + + + [...]
--- OUTSIDE RECORDS SUMMARY | ~2018-10-29 | XMS | Encounter Summary ---
Demographics + + + | Address | [address] | | | [place] [address] | + + + | Home Phone | | + + + | Preferred Language | Unknown | + + + | Marital Status | | + + + | Yarsani Affiliation | NON | + + + | Race | White | + + + | Ethnic Group | Not or | + + + Author + + + | Author | [facility] | + + + | Organization | [facility] | + + + | Address | Unknown | + + + | Phone | Unavailable | + + + Support + + + + + | Name | Relationship | Address | Phone | + + + + + | Brandi Boyle | YURIY | [address] | | | | | [place], [place] | | | | | [address] | | + + + + + Care Team Providers + +------+ + | Care Special Education Supervisor Name | Role | Phone | + [...] | | | | | n | [facility] Mailcode: | | | | | | [address] [place], [place] | | | | | | [address] | | | | | | [phone] | | | +--------+ + + + [...]
--- OUTSIDE RECORDS SUMMARY | ~2018-10-29 | XMS | Encounter Summary ---
Demographics + + + | Address | [address] | | | [place] [address] | + + + | Home Phone | | + + + | Preferred Language | Unknown | + + + | Marital Status | | + + + | Sikhism Affiliation | NON | + + + | Race | White | + + + | Ethnic Group | Not or | + + + Author + + + | Author | [facility] | + + + | Organization | [facility] | + + + | Address | Unknown | + + + | Phone | Unavailable | + + + Support + + + + + | Name | Relationship | Address | Phone | + + + + + | Brandi Boyle | YURIY | [address] | | | | | [place], [place] | | | | | [address] | | + + + + + Care Team Providers + +------+ + | Care Resource Teacher Name | Role | Phone | + +------+ + PCP | Unavailable | + +------+ + Encounter Details +--------+ + + + + | Date | Type | Department | Care Team | Description | +--------+ + + + + | 10/03/ | Results | Orthopaedics at | Juanjose Hayden MD | | | 2001 | Only | [facility] [address] | [address] | | | | | [facility] | [address] [place], [place] | | | | | Mailcode: PV430 | [address] | | | | | [facility] | | | | | | [place], [place] | | | | | | [address] | | | | | | [phone] | | | +--------+ + + + [...] | + +--------+ + + + | MRI SPINE LUMBAR WWO | Routin | 10/03/2001 | | Results for this | | CONTR | e | 12:25 PM | | procedure are in the | | | | PDT | | results section. | + +--------+ + + + documented in this encounter Results MRI SPINE LUMBAR WWO CONTR (10/03/2001 12:25 PM PDT) + + + + + + | Component | Value | Ref Range | Performed | Pathologist | | | | | At | Signature | + + + + + + | MR LUMBAR | Radiologist 1: [facility] | | | | | SPINE WWO | Rema RAYMUNDO-Radiologist | | | | | CONTR | 2: ZACKARY FARRAR, | | | | | | [facility] | | | | | | IMAGING, LUMBAR | | | | | | SPINE: 10/03/2001 | | | | | | Dictated 10/03/2001 | | | | | | CLINICAL | | | | | | HISTORY: Status post | | | | | | surgery at L5-S1 | | | | | | level. Rule | | | | | | outstenosis. | | | | | | COMPARISON: No prior | | | | | | studies are available. | | | | | | TECHNIQUE: Noncontras | | | | | | t sagittal and axial T1 | | | | | | and T2 scans were | | | | | | done.Post 20 cc | | | | | | Omniscan, axial and | | | | | | sagittal T1 scans were | | | | | | done. FINDINGS: There | | | | | | are postsurgical | | | | | | changes at L5-S1 with | | | | | | bilateralscrews through | | | | | | the L5 laminae entering | | | | | | the S1 vertebrae, and a | | | | | | fusioncage at | | | | | | L5-S1. There are | | | | | | metallic susceptibility | | | | | | artifacts due to | | | | | | thehardware. There is | | | | | | no obvious canal or | | | | | | foraminal narrowing. | | | | | | There is contrast | | | | | | enhancement and edema in | | | | | | the posterior | | | | | | paraspinalmuscles at | | | | | | L5-S1. Other vertebrae | | | | | | are normal in height, | | | | | | alignment, and | | | | | | signalintensity. The | | | | | | other intervertebral | | | | | | discs are | | | | | | unremarkable. There | | | | | | isno canal or foraminal | | | | | | narrowing. There is a | | | | | | small fluid collection | | | | | | with marginal | | | | | | enhancement in theright | | | | | | iliac graft donor site, | | | | | | which could be a seroma | | | | | | or an abscess. | | | | | | IMPRESSION: 1. Status | | | | | | post L5-S1 anterior and | | | | | | posterior fusion. No | | | | | | stenosisseen. | | | | | | 2. Edema in the L5-S1 | | | | | | posterior paraspinal | | | | | | soft tissues. | | | | | | 3. Small fluid | | | | | | collection in the right | | | | | | iliac bone, which may be | | | | | | aseroma or an | | | | | | abscess. Clinical | | | | | | correlation is advised. | | | | | | END OF IMPRESSION: | | | | + + + + + + + + | Specimen | + + | | + + + +---------+ + + | Performing | Address | City/State/Zipcode | Phone Number | | Organization | | | | + +---------+ + + | [facility]PARTMENT OF | | | | | RADIOLOGY | | | | + +---------+ + + documented in this encounter Visit Diagnoses Not on filedocumented in this encounter"
--- OUTSIDE RECORDS SUMMARY | ~2018-10-29 | XMS | Encounter Summary ---
Demographics + + + | Address | [address] | | | [place] [address] | + + + | Home Phone | | + + + | Preferred Language | Unknown | + + + | Marital Status | | + + + | Orthodox Affiliation | NON | + + + | Race | White | + + + | Ethnic Group | Not or | + + + Author + + + | Author | [facility] | + + + | Organization | [facility] | + + + | Address | Unknown | + + + | Phone | Unavailable | + + + Support + + + + + | Name | Relationship | Address | Phone | + + + + + | Brandi Boyle | YURIY | [address] | | | | | [place], [place] | | | | | [address] | | + + + + + Care Team Providers + +------+ + | Care Assistant Refinery Operator Name | Role | Phone | [...] as of this encounter Progress Notes Interface, Mowing Machine Operator In - 02/07/2006 6:22 AM PDTCLINIC DATE: [...] on his return. Juanjose Hayden M.D. / [id number] / [id number] / [id number] / [id number] cc: Yobani Millan D.O. [address] [place], [place] [id number] signed by Interface, Mowing Machine Operator In at 02/07/2006 6:2 2 AM PDTdocumented in this encounter Plan of Treatment Not on filedocumented as of this encounter Visit Diagnoses Not on filedocumented in this encounter"
--- OUTSIDE RECORDS SUMMARY | ~2018-10-29 | XMS | Encounter Summary ---
Demographics + + + | Address | [address] | | | [place] [address] | + + + | Home Phone | | + + + | Preferred Language | Unknown | + + + | Marital Status | | + + + | Anglican Affiliation | NON | + + + [...] [place], [place] | | | | | [address] | | + + + + + Care Team Providers + +------+ + | Care Surveillance Systems Engineer Name | Role | Phone | + +------+ + | Yobani Millan DO | PCP | | + +------+ + Encounter Details +--------+ + + + + | Date | Type | Department | Care Team | Description | +--------+ + + + + | 04/28/ | Procedure - | | Record, Operation | Operative Report | | 2000 | | | | | | | Transcribed | | | | +--------+ + + [...] | + +--------+ + + + | OPERATION RECORD | | 04/28/2001 | | Results for this | | | | | | procedure are in the | | | | | | results section. | + +--------+ + + + documented in this encounter Results OPERATION RECORD (04/28/2001) + + | Transcriptions | + + | Interface, Index Editor In - 03/03/2006 10:28 AM PDT | | [address] | | [place], [place] [address] | | [facility]ORDMed Rec No.: | | [id number] Date: 04/28/2001Name: Juanjose Boyle SURGEON: | | Osorio Bacon M.D.WEBSPHERE PROCESS SERVER DEVELOPER(S): Ronald Alcazar, | | RemaPREOPERATIVE DIAGNOSIS(ES):L5-S1 degenerative joint disease with | | radiculopathy.POSTOPERATIVE DIAGNOSIS(ES):Same.PROCEDURE(S) PERFORMED:Anterior L5-S1 | | spine exposure for Dr. Hayden.INDICATIONS:Dr. Juanjose Hayden asked me to perform the anterior | | exposure of the L5-S1 discspace so that he could do instrumentation.FINDINGS:The | | exposure was done through a lower midline incision through | | theretroperitoneum.SPECIMEN(S):See below.PROCEDURE:The patient was already in the | | operating room. Dr. Hayden had operated onhis posterior back and the patient had been | | placed supine. The abdomen wasprepped and draped in the usual sterile fashion. A 10 | | cm oblique incisionwas accomplished from just below the umbilicus to the | | pubis andsubcutaneous tissues were divided with cautery. The anterior rectus fasciawas | | divided with cautery and the rectus muscle was retracted laterally.Care was taken | | to avoid injury to the inferior epigastric artery and vein.The retroperitoneum was | | entered bluntly below the arcuate line and abovethe spermatic cold. The psoas muscle | | was identified as well as the ureterand the iliac artery and iliac vein. The bowel | | was bluntly swept off ofthe psoas muscle and was retracted medially. The ureter was | | also retractedmedially. The Synframe retractor was then placed and attention | | wasdirected to the sacral prominence. The median sacral artery and vein wereidentified | | and were ligated between clips together. The disc space wasexposed with sharp and | | blunt dissection. A small branch of the commoniliac vein was tied with 3-0 silk. | | The iliac vein was mobilized with sharpdissection up to the level of the bifurcation. | | Catracho was then called in and fluoroscopic film confirmed the proper discspace. Dr. Hayden | | performed the instrumentation and called me back for theclosure. I closed the | | anterior fascia with two running sutures of0 Maxon. The Zina's fascia was closed | | with running 3-0 Biosyn and theskin was closed with running subcuticular 4-0 Biosyn | | and Steri-Strips. Thepatient tolerated the procedure well and was extubated and | | taken to thePost Anesthesia Care Unit in satisfactory condition.Osorio Bacon, | | NANCIE/X65D:04/28/2001T:04/29/[id number] | | | |SPECIMEN(S): | |See below. | | | |PROCEDURE: | |The patient was already in the operating room. Dr. Hayden had operated on | |his posterior back and the patient had been placed supine. The abdomen was | |prepped and draped in the usual sterile fashion. A 10 cm oblique incision | |was accomplished from just below the umbilicus to the pubis and | |subcutaneous tissues were divided with cautery. The anterior rectus fascia | |was divided with cautery and the rectus muscle was retracted laterally. | |Care was taken to avoid injury to the inferior epigastric artery and vein. | |The retroperitoneum was entered bluntly below the arcuate line and above | |the spermatic cold. The psoas muscle was identified as well as the ureter | |and the iliac artery and iliac vein. The bowel was bluntly swept off of | |the psoas muscle and was retracted medially. The ureter was also retracted | |medially. The Synframe retractor was then placed and attention was | |directed to the sacral prominence. The median sacral artery and vein were | |identified and were ligated between clips together. The disc space was | |exposed with sharp and blunt dissection. A small branch of the common | |iliac vein was tied with 3-0 silk. The iliac vein was mobilized with sharp | |dissection up to the level of the bifurcation. | | | |Dr. Hayden was then called in and fluoroscopic film confirmed the proper disc | |space. Dr. Hayden performed the instrumentation and called me back for the | |closure. I closed the anterior fascia with two running sutures of | | | |0 Maxon. The Zina's fascia was closed with running 3-0 Biosyn and the | |skin was closed with running subcuticular 4-0 Biosyn and Steri-Strips. The | |patient tolerated the procedure well and was extubated and taken to the | |Post Anesthesia Care Unit in satisfactory condition. | | | | | | | |Osorio Bacon M.D. | | | |JM/X65 | | | | | |[id number] | + + | Interface, Index Editor In - 03/03/2006 10:28 AM PDT | | [address] | | [place], [place] [address] [place] | | [facility]OPERATION RECORDMed Rec No.: [id number] Date: | | 04/28/2001Name: Juanjose Boyle SURGEON: Juanjose Hayden M.D. | | Osorio Bacon M.D.ASSISTANTS: | | Bubba KarimiPREOPERATIVE DIAGNOSES: 1. L5-S1 degenerative | | disease withdisc space collapse. 2. L5-S1 | | radiculopathy, worse on theleft than the right.POSTOPERATIVE DIAGNOSIS(ES): | | Same.COMPLICATIONS: None.OPERATIONS PERFORMED: 1. | | Posterior lumbar fusion L5-S1. 2. Right iliac | | crest bone graft, separate incision. | | 3. Non-segmental spinal fixation L5-S1 | | (translaminar screws). 4. Anterior | | lumbar discectomy L5-S1. 5. Anterior lumbar fusion | | L5-S1. 6. Insertion prosthetic device L5-S1 | | (Danek LT fusion cage times two).OPERATIVE INDICATIONS: | | Mr. Boyle is a 55 year-old gentlemanwith severe axial backache of | | longstanding duration. He also has profoundspinal stenosis and radicular symptoms. | | He was evaluated radiographicallyusing an MRI, which disclosed single-level disc disease | | at L5-S1 level withcomplete collapse of the disc at that location. He underwent a | | discogramwhich confirmed that the L5-S1 was the painful disc, without significantpain | | in the adjacent levels. He was indicated for interbody fusion atL5-S1 with | | posterior supplementation using translaminar screws. The natureof the operation was | | discussed including the risks of neurologic deficit,persistent or new weakness, | | persistent lower extremity or back pain,nonunion, hardware failure, graft | | migration, graft site complications, aswell as retrograde ejaculation and other | | neurologic injuries as well asvascular injuries anteriorly. In addition, we | | discussed the potential forbilateral motor deficits as well as anesthetic | | complications up to thepoint of . He understood the nature of the operation | | as well as therisks, and elected to proceed as described. Consent was freely | | signed.All questions were fully answered.SPECIMEN(S) REMOVED: Not | | dictated.OPERATIVE PROCEDURE: The patient was brought to | | theoperating room and placed on the table in supine position. Generalanesthesia | | was induced. The patient was then rotated in the proneposition, and the | | posterior aspect of the lumbosacral spine was thenprepped and draped in sterile | | fashion.Posterior approach was then performed, and check lateral radiograph | | wasobtained to determine level. We then proceeded with placement of | | bilateraltranslaminar screws with standard star points and orientation of the | | screwacross the facet joints bilaterally. AP and lateral radiographs wereobtained | | to determine the location of the screws, which was felt to beanatomic. We also | | then harvested a right iliac crest graft through aseparate incision. This was a | | morselized bone graft. Bone graft was savedfor the front, and then the remaining bone | | was packed into the decorticatedposterior aspect of the lumbosacral spine from L5 | | to S1, includingdecortication of the facet joints themselves. This was packed | | bilaterally.At this point, we copiously irrigated with normal saline and closed | | overmedium Hemovac drain. Stab incisions were made bilaterally on the lateralaspect, | | to allow orientation of the drill and screws on the screwdriver.Fifty-mm, four-five | | cancelous titanium Synthes-screws were placed.At this point, we closed the posterior | | wounds and then proceeded to rotatethe patient and prep the anterior aspect of the | | lumbar spine. The GeneralSurgery Service performed the anterior approach and | | Arleen willdictate this portion of the procedure.We then obtained a check lateral | | radiograph to determine level, andproceeded with the discectomy of the L5-S1 disc | | space. I should mentionthat on the left side, we placed a Steinmann pin in the | | deep recess toretain the left iliac vein out of the field. We completed the | | discectomydown to subchondral bone on both end plates without significant | | difficulty,using curettes and pituitary rongeur. We then proceeded with placement | | ofthe measuring devices. Ultimately, we selected a 16-mm-sized implant. Chloe placed | | the rock, with care taken to avoid injury to the vascularstructures, and then | | reamed and placed bilateral 16-mm cages. Checklateral radiograph was obtained to | | determine both the level and location ofcages, and actually was performed throughout to | | insure that the orientationand location of the implants and rock were appropriate | | throughout.We should mention that we used the balance of the bone graft in the packingof | | the interbody cages, which fit nicely side by side. Final bone was thenpacked | | anteriorly ahead of the cages, which were recessed well below theanterior vertebral | | cortex.At this point, we copiously irrigated with normal saline. The | | GeneralSurgery Service then returned to the room and closed the wound, and | | willdictate this portion of the procedure. No drain was placed.I was present and | | scrubbed throughout the procedure, except for theportions of the procedure as | | dictated by the General Surgery Service.Juanjose Hayden M.D.AL/Neisha: 04/30/2001T: | | 05/01/2001 3:52 [id number] | |At this point, we copiously irrigated with normal saline and closed over | |medium Hemovac drain. Stab incisions were made bilaterally on the lateral | |aspect, to allow orientation of the drill and screws on the screwdriver. | |Fifty-mm, four-five cancelous titanium Synthes-screws were placed. | | | |At this point, we closed the posterior wounds and then proceeded to rotate | |the patient and prep the anterior aspect of the lumbar spine. The General | |Surgery Service performed the anterior approach and Dr. Bacon will | |dictate this portion of the procedure. | | | |We then obtained a check lateral radiograph to determine level, and | |proceeded with the discectomy of the L5-S1 disc space. I should mention | |that on the left side, we placed a Steinmann pin in the deep recess to | |retain the left iliac vein out of the field. We completed the discectomy | |down to subchondral bone on both end plates without significant difficulty, | |using curettes and pituitary rongeur. We then proceeded with placement of | |the measuring devices. Ultimately, we selected a 16-mm-sized implant. We | |then placed the rock, with care taken to avoid injury to the vascular | |structures, and then reamed and placed bilateral 16-mm cages. Check | |lateral radiograph was obtained to determine both the level and location of | |cages, and actually was performed throughout to insure that the orientation | |and location of the implants and rock were appropriate throughout. | | | |We should mention that we used the balance of the bone graft in the packing | |of the interbody cages, which fit nicely side by side. Final bone was then | |packed anteriorly ahead of the cages, which were recessed well below the | |anterior vertebral cortex. | | | |At this point, we copiously irrigated with normal saline. The General | |Surgery Service then returned to the room and closed the wound, and will | |dictate this portion of the procedure. No drain was placed. | | | |I was present and scrubbed throughout the procedure, except for the | |portions of the procedure as dictated by the General Surgery Service. | | | | | | | | | |Juanjose Hayden M.D. | | | |AL/remedios | | | | P | |[phone] | + + documented in this encounter Visit Diagnoses Not on filedocumented in this encounter"
--- OUTSIDE RECORDS SUMMARY | ~2018-10-29 | XMS | Encounter Summary ---
Demographics + + + | Address | [address] | | | [place] [address] | + + + | Home Phone [...] [place], [place] | | | | | [address] | | + + + + + Care Team Providers + +------+ + | Care Kitchen Supervisor Name | Role | Phone | [...] [address] | | | | | [facility] | [address] [place], [place] | | | | | Mailcode: [id number] | [id number] | | | | | [facility] | | | | | | [place], [place] | | | | | | [address] | | | | | | [phone] | | | +--------+ + + + [...] | | + +---------+ + + | [facility] DEPARTMENT OF | | | | | RADIOLOGY | | | | + +---------+ + + documented in this encounter Visit Diagnoses Not on filedocumented in this encounter"
--- OUTSIDE RECORDS SUMMARY | ~2018-10-29 | XMS | Encounter Summary ---
Demographics + + + | Address | [address] | | | [place] [address] | + + + | Home Phone | | + + + | Preferred Language | Unknown | + + + | Marital Status | | + + + | Adventist Affiliation | Unknown | + + + | Race | Unknown | + + + | Ethnic Group | Unknown | + + + Author + + + | Author | [facility] | | | and [place] | + + + | Organization | [facility] | | [...] Team Providers + +------+ + | Care Wood Shop Teacher Name | Role | Phone | + +------+ + | Hamzah Zamora | PCP | Unavailable | + +------+ + Encounter Details +--------+ + + + + | Date | Type | Department | Care Team | Description | +--------+ + + + + | 08/13/ | Hospital | [facility] | Nick Ram | Chronic lumbar | | 2019 | Encounter | MED CTR OR PRE OP | MD Zeeshan [address] | radiculopathy; | | | | [address] | [address] [place] | 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 The area for [...]
--- OUTSIDE RECORDS SUMMARY | ~2018-10-29 | XMS | Encounter Summary ---
Demographics + + + | Address | [address] | | | [place] [address] | + + + | Home Phone [...] [place], [place] | | | | | [address] | | + + + + + Care Team Providers + +------+ + | Care Engineering Operations Leader Name | Role | Phone | [...] as of this encounter Progress Notes Interface, Dean Of Boys In - 02/19/2006 1:11 AM PDTCLINIC DATE: [...] concerns arise. Juanjose Hayden M.D. / YOLANDA [id number] / [id number] / [id number] / cc: Yobani Millan D.O. [address] [place], [place] [id number] signed by Interface, Dean Of Boys In at 02/19/2006 1:1 1 AM PDTdocumented in this encounter Plan of Treatment Not on filedocumented as of this encounter Visit Diagnoses Not on filedocumented in this encounter
--- OUTSIDE RECORDS SUMMARY | ~2018-10-29 | XMS | Encounter Summary ---
Demographics + + + | Address | [address] | | | [place] [address] | + + + | Home Phone | | + + + | Preferred Language | Unknown | + + + | Marital Status | | + + + | Jain Affiliation | NON | + + + [...] [place], [place] | | | | | [address] | | + + + + + Care Team Providers + +------+ + | Care Tinter Photograph Name | Role | Phone | + [...] as of this encounter Progress Notes Interface, Pneumatic Tube Repairer In - 02/19/2006 1:11 AM PDTCLINIC DATE: 05[facility]29/[facility] The patient phoned today requesting refill on his Soma. This is okayed today by Cristine Kwon, physician's assistant media buyer, for Soma #[id number] which was phoned into [email or web address] at [phone]. Audelia Page M.D. / YOLANDA [id number] / [id number] / [id number] / Tdocumented in this encounter Plan of Treatment Not on filedocumented as of this encounter Visit Diagnoses Not on filedocumented in this encounter"
--- OUTSIDE RECORDS SUMMARY | ~2018-10-29 | XMS | Encounter Summary ---
Demographics + + + | Address | [address] | | | [place] [address] | + + + | Home Phone [...] [place], [place] | | | | | [address] | | + + + + + Care Team Providers + +------+ + | Care Stretch Press Operator Name | Role | Phone | [...] as of this encounter Progress Notes Interface, Program Lead In - 02/03/2006 3:12 AM PDTCLINIC DATE: [...] the lumbar spine. Juanjose Hayden M.D. / [id number] / [id number] / [id number] / C: 10/21/2001 [facility] cc: Yobani Millan D.O. [address] [place], [place] [id number] signed by Interface, Program Lead In at 02/03/2006 3:1 2 AM PDTdocumented in this encounter Plan of Treatment Not on filedocumented as of this encounter Visit Diagnoses Not on filedocumented in this encounter"
--- OUTSIDE RECORDS SUMMARY | ~2018-10-29 | XMS | Encounter Summary ---
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 There have been no other complaints of [...] as well. Juanjose Hayden M.D. / YOLANDA [id number] / [id number] / [id number] / cc: Yobani Millan D.O. 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 Rema Flores M.D. Hims Coder, Department of Anesthesiology [facility] / YOLANDA [id number] / [id number] / [id number] / cc: Yobani Millan M.D. [address] [place] [address] [facility] Neurosurgery [id number] [facility] Orthopedics [id number] signed by Interface, Wash Box Operator In at 03/08/2006 1:03 AM PDTdocume nted in this encounter Plan of Treatment Not on filedocumented as of this encounter Visit Diagnoses Not on filedocumented in this encounter
--- OUTSIDE RECORDS SUMMARY | ~2018-10-29 | XMS | Encounter Summary ---
Demographics + + + | Address | [address] | | | [place] [address] | + + + | Home Phone | | + + + | Preferred Language | Unknown | + + + | Marital Status | | + + + | Restoration Affiliation | NON | + + + [...] [place], [place] | | | | | [address] | | + + + + + Care Team Providers + +------+ + | Care Gear Room Keeper Name | Role | Phone | + [...] [address] | | | | | [facility] | [address] [place], [place] | | | | | Mailcode: [id number] | [address] | | | | | [facility] | | | | | | [place], [place] | | | | | | [address] | | | | | | [phone] | | | +--------+ + + + [...]
--- OUTSIDE RECORDS SUMMARY | ~2018-10-29 | XMS | Encounter Summary ---
Demographics + + + | Address | [address] | | | [place] [address] | + + + | Home Phone | | + + + | Preferred Language | Unknown | + + + | Marital Status | | + + + | Scientologist Affiliation | NON | + + + [...] [place], [place] | | | | | [address] | | + + + + + Care Team Providers + +------+ + | Care Night Custodian Name | Role | Phone | + [...] as of this encounter Progress Notes Interface, Hyperbaric Welder Diver In - 12/31/2004 6:28 AM PDTClinic Date: [...] further concerns arise. Juanjose Hayden M.D. / [id number] / [id number] / [id number] / cc: Yobani Millan D.O. [address] [place], [place] [id number] signed by Interface, Hyperbaric Welder Diver In at 12/31/2004 6:2 8 AM PDTdocumented in this encounter Plan of Treatment Not on filedocumented as of this encounter Visit Diagnoses Not on filedocumented in this encounter"
--- OUTSIDE RECORDS SUMMARY | ~2018-10-29 | XMS | Encounter Summary ---
Demographics + + + | Address | [address] | | | [place] [address] | + + + | Home Phone [...] [place], [place] | | | | | [address] | | + + + + + Care Team Providers + +------+ + | Care Stiff Straw Hat Washer Name | Role | Phone | + [...] [address] | | | | | [address] | [address] [place], [place] | | | | | Mailcode: [id number] | [address] | | | | | [facility] | | | | | | [place], [place] | | | | | | [address] | | | | | | [phone] | | | +--------+ + + + [...]
--- OUTSIDE RECORDS SUMMARY | ~2018-10-29 | XMS | Encounter Summary ---
Demographics + + + | Address | [address] | | | [place] [address] | + + + | Home Phone | | + + + | Preferred Language | Unknown | + + + | Marital Status | | + + + | Congregation Affiliation | NON | + + + [...] [place], [place] | | | | | [address] | | + + + + + Care Team Providers + +------+ + | Care Telemarketer Name | Role | Phone | + [...] as of this encounter Progress Notes Interface, Grinder Set Up Operator Internal In - 12/31/2004 6:28 AM PDTClinic Date: [...] further concerns arise. Juanjose Hayden M.D. / [id number] / [id number] / [id number] / cc: Yobani Millan D.O. [address] [place], [place] [id number] signed by Interface, Grinder Set Up Operator Internal In at 12/31/2004 6:2 8 AM PDTdocumented in this encounter Plan of Treatment Not on filedocumented as of this encounter Visit Diagnoses Not on filedocumented in this encounter"
--- OUTSIDE RECORDS SUMMARY | ~2018-10-29 | XMS | Encounter Summary ---
Demographics + + + | Address | [address] | | | [place] [address] | + + + | Home Phone [...] [place], [place] | | | | | [address] | | + + + + + Care Team Providers + +------+ + | Care Pulp Mill Operator Name | Role | Phone | [...] Road | | | | | | [place], [place] | | | | | | [address] | | | +--------+ + + + [...] | + + | 04/29/2001 11:03 AM [facility] Anesthesia PostOp Report | | | | Patient: YOU SHARON Med Rec: [id number] Neil M Bdate: 1955 | | Date/Time Data | | Entered Into [facility] | | Anesth PostOp | | Surgery Date [id number] 04/29/01 11:03 | | Anesthesiologist RHINA GREEN [...]
--- OUTSIDE RECORDS SUMMARY | ~2018-10-29 | XMS | Encounter Summary ---
Demographics + + + | Address | [address] | | | [place] [address] | + + + | Home Phone | | + + + | Preferred Language | Unknown | + + + | Marital Status | | + + + | Spiritism Affiliation | NON | + + + [...] [place], [place] | | | | | [address] | | + + + + + Care Team Providers + +------+ + | Care Forward Air Controller/Air Officer Name | Role | Phone | [...] as of this encounter Discharge Summaries Interface, Rotor Assembler In - 03/03/2006 10:[address] [address] [facility] MEDICAL SUMMARY OF HOSPITALIZATION Med Rec [...] MD (ALT) [address] [place] [address] [id number] signed by Interface, Rotor Assembler In at 03/03/2006 10:28 AM [facility]ed in this encounter Plan of Treatment Not on filedocumented as of this encounter Visit Diagnoses Not on filedocumented in this encounter"
--- OUTSIDE RECORDS SUMMARY | ~2018-10-29 | XMS | Encounter Summary ---
Demographics + + + | Address | [address] | | | [place] [address] | + + + | Home Phone | | + + + | Preferred Language | Unknown | + + + | Marital Status | | + + + | Moravian Affiliation | NON | + + + [...] [place], [place] | | | | | [address] | | + + + + + Care Team Providers + +------+ + | Care Coil Cutter Name | Role | Phone | [...] | Transcriptions | + + | Interface, Steel Fixer In - 03/03/2006 10:28 AM PDT | | [address] | | [place], [place] [address] | | [facility] RECORDMed Rec No.: | | [id number] Date: 04/28/2001Name: Juanjose Boyle SURGEON: | | Osorio Bacon M.D.COMPOUND FINISHER(S): Ronald Alcazar, | | RemaPREOPERATIVE DIAGNOSIS(ES):L5-S1 degenerative [...] Unit in satisfactory condition.Osorio Bacon, | | NANCIE/X65D:04/28/2001T:04/29/[id number] | | | |SPECIMEN(S): | |See below. [...] | |JM/X65 | | | | | |[id number] | + + | Interface, Steel Fixer In - 03/03/2006 10:28 AM PDT | | [address] | | [place], [place] [address] [place] | | [facility]Med Rec No.: [id number] Date: [...] Hayden M.D.AL/Neisha: 04/30/2001T: | | 05/01/2001 3:52 [id number] | |At this point, we copiously irrigated [...] |AL/remedios | | | | P | |[id number] | + + documented in this encounter Visit Diagnoses Not on filedocumented in this encounter"
--- OUTSIDE RECORDS SUMMARY | ~2018-10-29 | XMS | Encounter Summary ---
Demographics + + + | Address | [address] | | | [place] [address] | + + + | Home Phone | | + + + | Preferred Language | Unknown | + + + | Marital Status | | + + + | Church Affiliation | Unknown | + + + | Race | Unknown | + + + | Ethnic Group | Unknown | + + + Author + + + | Author | [facility] | | | and [place] | + + + | Organization | [facility] | | | and [...] Team Providers + +------+ + | Care Machine Heel Seat Fitter Name | Role | Phone | + [...] [address] | | | | | [place], | [address] [place] | | | | | [place] [address] | [address] | | | | | [phone] | | | +--------+ + + + [...]
--- OUTSIDE RECORDS SUMMARY | ~2018-10-29 | XMS | Encounter Summary ---
Demographics + + + | Address | [address] | | | [place] [address] | + + + | Home Phone | | + + + | Preferred Language | Unknown | + + + | Marital Status | | + + + | Advent Affiliation | Unknown | + + + | Race | Unknown | + + + | Ethnic Group | Unknown | + + + Author + + + | Author | [facility] | | | and [place] | + + + | Organization | [facility] | | | and [...] Providers + +------+ + | Care Special Effects Technician Name | Role | Phone | + +------+ + | Hamzah Zamora | PCP | Unavailable | + +------+ + Encounter Details +--------+ + + + + | Date | Type | Department | Care Team | Description | +--------+ + + + + | 08/13/ | Hospital | 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 The area for the [...]
--- OUTSIDE RECORDS SUMMARY | ~2018-10-29 | XMS | Clinical Summary ---
Demographics + + + | Address | [address] | | | [place] [address] | + + + | Home Phone | | + + + | Preferred Language | Unknown | + + + | Marital Status | | + + + | Adventism Affiliation | Unknown | + + + [...] Team Providers + +------+ + | Care Spot Welder Line Name | Role | Phone | + [...] MD | | | | | | /[id number] | | | | | | | [...] MD | | | | | | /[id number] | | | | | | | [...] | | | | | | [place] ([address]) | | | | | + +--------+ [...] my direction according to | | | [facility] conscious sedation protocol. The area for [...] + +--------+ | MEDICARE | MEDICA | [id number] | 09/02/19 | [phone] | | Medica | | | RE | | 07-Pre | 5 | | re | | | PART A | | sent | | | | | | AND B | | | | | | + +--------+ +--------+ + +--------+ | MODA | MODA | [id number] | 01/02/20 | [phone] | [address] | PPO | | | HEALTH | | 11-Pre | 9 | [address] | | | | | | sent | | [facility], | | | | [place] | | | | [place] [address] | | | | [place] | | [...] | | al/Oswald | | 4 | [phone] | [place] | | | akshat | | | 2 (Home) | [address] | + +--------+ +--------+ + + Advance Directives Patient has advance care planning documents on file. For more information, please contact:[facility] [employer] [facility] [place] [address]
--- OUTSIDE RECORDS SUMMARY | ~2018-10-29 | XMS | Encounter Summary ---
Demographics + + + | Address | [address] | | | [place] [address] | + + + | Home Phone | | + + + | Preferred Language | Unknown | + + + | Marital Status | Unknown | + + + | Quaker Affiliation | Unknown | + + + | Race | Unknown | + + + | Ethnic Group | Unknown | + + + Author + + + | Author | [facility] | + + + | Organization | [facility] | + + + | Address | Unknown | + + + | Phone | Unavailable | + + + Care Team Providers + +------+ + | Care Rn Cardiac Cath Name | Role | Phone | + +------+ + PCP | Unavailable | + +------+ + Encounter Details +--------+ + + + + | Date | Type | Department | Care Team | Description | +--------+ + + + + | 10/21/ | Lab | [facility] | [facility] | | | 2018 | Requisition | [address] | A, [employer] | | | | | [place] [address] | | | | | | [phone] | | | +--------+ + + + [...]
--- OUTSIDE RECORDS SUMMARY | ~2018-10-29 | XMS | Encounter Summary ---
Demographics + + + | Address | [address] | | | [place] [address] | + + + | Home Phone | | + + + | Preferred Language | Unknown | + + + | Marital Status | | + + + | Restorationist Affiliation | NON | + + + [...] [place], [place] | | | | | [address] | | + + + + + Care Team Providers + +------+ + | Care Hand Laster Name | Role | Phone | + [...] as of this encounter Progress Notes Interface, Procurement Officer In - 02/07/2006 6:22 AM PDTCLINIC DATE: [...] on his return. Juanjose Hayden M.D. / [id number] / [id number] / [id number] / [id number] cc: Yobani Millan D.O. [address] [place], [place] [id number] signed by Interface, Procurement Officer In at 02/07/2006 6:2 2 AM PDTdocumented in this encounter Plan of Treatment Not on filedocumented as of this encounter Visit Diagnoses Not on filedocumented in this encounter"
--- OUTSIDE RECORDS SUMMARY | ~2018-10-29 | XMS | Encounter Summary ---
Demographics + + + | Address | [address] | | | [place] [address] | + + + | Home Phone | | + + + | Preferred Language | Unknown | + + + | Marital Status | | + + + | Yarsanism Affiliation | NON | + + + [...] [place], [place] | | | | | [address] | | + + + + + Care Team Providers + +------+ + | Care Vehicle And Equipment Cleaner Name | Role | Phone | + [...] as of this encounter Progress Notes Interface, Endband Cutter Hand In - 02/23/2006 3:02 AM PDTCLINIC DATE: [...] hours as well as supplementing with some [id number] 4 times a day. He can continue [...] L-spine films. Luisito Karimi. ANDRES / YOLANDA [id number] / [id number] / [id number] / Tdocumented in this encounter Plan of Treatment Not on filedocumented as of this encounter Visit Diagnoses Not on filedocumented in this encounter"
--- OUTSIDE RECORDS SUMMARY | ~2018-10-29 | XMS | Encounter Summary ---
Demographics + + + | Address | [address] | | | [place] [address] | + + + | Home Phone | | + + + | Preferred Language | Unknown | + + + | Marital Status | | + + + | Caodaism Affiliation | NON | + + + | Race | White | + + + | Ethnic Group | Not or | + + + Author + + + | Author | [facility] | + + + | Organization | [facility] | + + + | Address | Unknown | + + + | Phone | Unavailable | + + + Support + + + + + | Name | Relationship | Address | Phone | + + + + + | Brandi Boyle | YURIY | [address] | | | | | [place], [place] | | | | | [address] | | + + + + + Care Team Providers + +------+ + | Care Intake Counselor Name | Role | Phone | [...] | | | | | Therapy Center [address] | [facility] [place] | | | | | [address] | [address] | | | | | Outpatient Therapy | [phone] | | | | | Center 2nd floor | | | | | | Mailcode: OP26 | | | | | | [facility] [place] | | | | | | [address] | | | | | | [phone] | | | +--------+ + + + [...] a | | | | | | "[id number]"appearance | | | | | | . [...] | | + +---------+ + + | [facility] DEPARTMENT OF | | | | [...] | | + +---------+ + + | [facility] DEPARTMENT OF | | | | | RADIOLOGY | | | | + +---------+ + + documented in this encounter Visit Diagnoses Not on filedocumented in this encounter
--- OUTSIDE RECORDS SUMMARY | ~2018-10-29 | XMS | Encounter Summary ---
Demographics + + + | Address | [address] | | | [place] [address] | + + + | Home Phone [...] [place], [place] | | | | | [address] | | + + + + + Care Team Providers + +------+ + | Care Manufacturing Operator Name | Role | Phone | [...] as of this encounter Progress Notes Interface, Granulizing Machine Operator In - 03/08/2006 1:03 AM PDT [place] [address] [address] or March 18, 2001 Dirk Davis M.D. [facility] Department of Neurosurgery -3200 RE: SHARON ORTA MR #: [id number] Dear Dr. Davis: Thank you for consulting the [facility] regarding Mr. Sharon Orta. [...] subsequent CT. Thanks again for consulting the [facility] regarding this patient. Please feel free to contact me for any further information on this assessment. I will keep you update regarding his care here. Very truly yours, Steven Price M.D. [facility] MAYRA / YOLANDA [id number] / [id number] / [id number] / cc: Yobani Millan D.O. [address] [place] [address] Sharon Hayden M.D. [facility] Department of Orthopedic Surgery [id number] signed by Interface, Granulizing Machine Operator In at 03/08/2006 1:03 AM PDTdocume nted in this encounter Plan of Treatment Not on filedocumented as of this encounter Visit Diagnoses Not on filedocumented in this encounter"
--- OUTSIDE RECORDS SUMMARY | ~2018-10-29 | XMS | Encounter Summary ---
Demographics + + + | Address | [address] | | | [place] [address] | + + + | Home Phone | | + + + | Preferred Language | Unknown | + + + | Marital Status | | + + + | Restorationist Affiliation | Unknown | + + + | Race | Unknown | + + + | Ethnic Group | Unknown | + + + Author + + + | Author | [facility] | | | and [place] | + + + | Organization | [facility] | | | and [...] Team Providers + +------+ + | Care Second Facing Baster Name | Role | Phone | + [...] [address] | Assistance | | | | [place], | [place], [place] | | | | | [place] [address] | [address] | | | | | [phone] | | | +--------+ + + + [...]
--- OUTSIDE RECORDS SUMMARY | ~2018-10-29 | XMS | Encounter Summary ---
Demographics + + + | Address | [address] | | | [place] [address] | + + + | Home Phone [...] [place], [place] | | | | | [address] | | + + + + + Care Team Providers + +------+ + | Care Post Doctoral Fellow Name | Role | Phone | + [...] | Transcriptions | + + | Interface, Public Policy Professor In - 03/08/2006 1:03 AM PDT | | [place] [address] | | [place], [place] [address] | | [facility] RECORDMed Rec No.: | | [id number] Date: 03/25/2001Name: Juanjose BoyleCHRIS SURGEON: | | Steven Price M.D.ELECTRONICS ENGINEERING PROFESSOR SURGEON: Zoila Voss | | RemaPREOPERATIVE DIAGNOSIS:Mechanical [...] The patient was then escorted to the [facility] | | pain management center procedure suite, wherehe positioned himself prone on the | | examination table. All pressure pointswere checked and padded. His back was prepped | | with Hibiclens, alcohol, andDuraPrep. Sterile technique was used during the entire | | procedure. Steriledrapes were applied, and gowns, gloves, and masks were worn by the | | surgeonand the assistant cook surgeon.Fluoroscope was positioned to count the lower [...] [facility], where he had [...] Davis, | | RAHEEM ZELAYA DO[address] [id number]: | |PROCEDURE: | |After a detailed discussion [...] patient was then escorted to the [facility] pain [facility] procedure suite, where | |he positioned himself prone on the examination table. All pressure points | |were checked and padded. His back was prepped with Hibiclens, alcohol, and | |DuraPrep. Sterile technique was used during the entire procedure. Sterile | |drapes were applied, and gowns, gloves, and masks were worn by the surgeon | |and the assistant cook surgeon. | | | |Fluoroscope was positioned [...] |He was transferred by stretcher to the [facility] | |pain management center postanesthesia care [...] [address] | |[address] | |[facility] [address] | | | | | |[phone] | | | |CC: | + + documented in this encounter Visit Diagnoses Not on filedocumented in this encounter"
--- OUTSIDE RECORDS SUMMARY | ~2018-10-29 | XMS | Encounter Summary ---
Demographics + + + | Address | [address] | | | [place] [address] | + + + | Home Phone | | + + + | Preferred Language | Unknown | + + + | Marital Status | | + + + | Alevism Affiliation | NON | + + + [...] [place], [place] | | | | | [address] | | + + + + + Care Team Providers + +------+ + | Care Maintenance Worker Municipal Name | Role | Phone | + [...] as of this encounter Progress Notes Interface, Academic Hospitalist In - 02/23/2006 3:02 AM PDTCLINIC DATE: [...] hours as well as supplementing with some [id number] 4 times a day. He can continue [...] L-spine films. Luisito Karimi. ANDRES / YOLANDA [id number] / [id number] / [id number] / Tdocumented in this encounter Plan of Treatment Not on filedocumented as of this encounter Visit Diagnoses Not on filedocumented in this encounter"
--- OUTSIDE RECORDS SUMMARY | ~2018-10-29 | XMS | Encounter Summary ---
Demographics + + + | Address | [address] | | | [place] [address] | + + + | Home Phone | | + + + | Preferred Language | Unknown | + + + | Marital Status | | + + + | Jew Affiliation | NON | + + + [...] [place], [place] | | | | | [address] | | + + + + + Care Team Providers + +------+ + | Care Commercial Loan Administrator Name | Role | Phone | + [...] as of this encounter Progress Notes Interface, Assistant Quality Manager In - 02/23/2006 3:02 AM PDTCLINIC DATE: [...] not currently taking oxycodone. Grace Everett / [id number] / [id number] / [id number] / [id number] Tdocumented in this encounter Plan of Treatment Not on filedocumented as of this encounter Visit Diagnoses Not on filedocumented in this encounter"
--- OUTSIDE RECORDS SUMMARY | ~2018-10-29 | XMS | Encounter Summary ---
Demographics + + + | Address | [address] | | | [place] [address] | + + + | Home Phone [...] [place], [place] | | | | | [address] | | + + + + + Care Team Providers + +------+ + | Care Service Car Operator Name | Role | Phone | [...] | | | | | n | [facility] Mailcode: | | | | | | [id number] [place], [place] | | | | | | [address] | | | | | | [phone] | | | +--------+ + + + [...]
--- OUTSIDE RECORDS SUMMARY | ~2018-10-29 | XMS | Encounter Summary ---
Demographics + + + | Address | [address] | | | [place] [address] | + + + | Home Phone | | + + + | Preferred Language | Unknown | + + + | Marital Status | | + + + | Voodoo Affiliation | Unknown | + + + | Race | Unknown | + + + | Ethnic Group | Unknown | + + + Author + + + | Author | [facility] | | | and [place] | + + + | Organization | [facility] | | [...] Team Providers + +------+ + | Care Mobility Engineer Name | Role | Phone | [...] | | bilateral | [place] | [address] | | | | | sciatica | [address] | Phone: | | | | | S/P lumbar | Phone: | [phone] | | | | | fusion | [phone] | Fax: | | | | | Failed back | Fax: | [phone] | | | | | syndrome of | [phone] | | | | | | lumbar [...] + + | 08/20/ | Office | [facility] [place] | Nick Ram | Chronic bilateral | | 2018 | Visit | PHYSIATRY [address] | low back pain with | | | | [place], | [place], [place] | bilateral sciatica | | | | [place] [address] | [address] | (Primary Dx); S/P | | | | [phone] | | lumbar fusion; | | | [...]
--- OUTSIDE RECORDS SUMMARY | ~2018-10-29 | XMS | Encounter Summary ---
Demographics + + + | Address | [address] | | | [place] [address] | + + + | Home Phone [...] [place], [place] | | | | | [address] | | + + + + + Care Team Providers + +------+ + | Care Facility Service Associate Name | Role | Phone | + [...] as of this encounter Progress Notes Interface, Hog Slaughterer In - 02/23/2006 3:02 AM PDTCLINIC DATE: 05/08/2001 [facility] The patient called for a refill on his oxycodone. The prescription was mailed to patient's home address for oxycodone 5 mg 1-2 tablets p.o. q.4-6h. p.r.n. pain, no refills. This was approved by Melanie Kwon. A prescription for Tylenol No. 3, quantity of 60, 1-2 tablets p.o. q.4-6h. p.r.n. pain was called into [facility] at [phone]. Maria Eugenia Roche dictating for: CHENCHO Karimi MM / [id number] / [id number] / [id number] / [id number] C: 05/12/2001 hkh A M PDTdocumented in this encounter Plan of Treatment Not on filedocumented as of this encounter Visit Diagnoses Not on filedocumented in this encounter"
--- OUTSIDE RECORDS SUMMARY | ~2018-10-29 | XMS | Encounter Summary ---
Demographics + + + | Address | [address] | | | [place] [address] | + + + | Home Phone [...] [place], [place] | | | | | [address] | | + + + + + Care Team Providers + +------+ + | Care Respiratory Care Technician Name | Role | Phone | [...] [address] | | | | | [facility] | [address] [place], [place] | | | | | Mailcode: PV430 | [address] | | | | | Physician's Praneeth | | | | | | [place], [place] | | | | | | [address] | | | | | | [phone] | | | +--------+ + + + [...] | | + +---------+ + + | [facility] DEPARTMENT OF | | | | | RADIOLOGY | | | | + +---------+ + + documented in this encounter Visit Diagnoses Not on filedocumented in this encounter"
--- OUTSIDE RECORDS SUMMARY | ~2018-10-29 | XMS | Encounter Summary ---
Demographics + + + | Address | [address] | | | [place] [address] | + + + | Home Phone [...] + + + | Author | [facility] | | | and [place] | + + + | Organization | [facility] | | | [...] Providers + +------+ + | Care Pediatric Neuropsychologist Name | Role | Phone | + [...] [address] | | | | | [place], | [address] [place] | | | | | [place] [address] | [address] | | | | | [phone] | | | +--------+ + + + [...]
--- OUTSIDE RECORDS SUMMARY | ~2018-10-29 | XMS | Encounter Summary ---
Demographics + + + | Address | [address] | | | [place] [address] | + + + | Home Phone | | + + + | Preferred Language | Unknown | + + + | Marital Status | | + + + | Latter-Day Affiliation | Unknown | + + + | Race | Unknown | + + + | Ethnic Group | Unknown | + + + Author + + + | Author | [facility] | | | and [place] | + + + | Organization | [facility] | | | [...] Team Providers + +------+ + | Care Roofing Applicator Name | Role | Phone | + [...] | | | | | [address] | [place] | | | | | [place] | [address] | | | | | [address] | | | | | | [phone] | | | +--------+---------+ + + + [...] | | | | | | [place] ([address]) | | | | | + +--------+ [...] my direction according to | | | [facility] conscious sedation protocol. The area for [...]
--- OUTSIDE RECORDS SUMMARY | ~2018-10-29 | XMS | Encounter Summary ---
Demographics + + + | Address | [address] | | | [place] [address] | + + + | Home Phone | | + + + | Preferred Language | Unknown | + + + | Marital Status | | + + + | Yarsanism Affiliation | NON | + + + | Race | White | + + + | Ethnic Group | Not or | + + + Author + + + | Author | [facility] | + + + | Organization | [facility] | + + + | Address | Unknown | + + + | Phone | Unavailable | + + + Support + + + + + | Name | Relationship | Address | Phone | + + + + + | Brandi Boyle | YURIY | [address] | | | | | [place], [place] | | | | | [address] | | + + + + + Care Team Providers + +------+ + | Care Facing Machine Operator Name | Role | Phone [...] as of this encounter Progress Notes Interface, Route Delivery Manager In - 02/19/2006 1:11 AM PDTCLINIC [...] I think this can be done in [place], and the results can simply be mailed to me in order to save them a trip down. I will schedule a return appointment in 6 weeks. On his return, we shall obtain AP, flexion, and extension views of the lumbar spine. Juanjose Hayden M.D. / YOLANDA [id number] / [id number] / [id number] / cc: Yobani Millan D.O. [address] [place], [place] [id number] signed by Interface, Route Delivery Manager In at 02/19/2006 1:1 1 AM PDTdocumented in this encounter Plan of Treatment Not on filedocumented as of this encounter Visit Diagnoses Not on filedocumented in this encounter"
--- OUTSIDE RECORDS SUMMARY | ~2018-10-29 | XMS | Encounter Summary ---
Demographics + + + | Address | [address] | | | [place] [address] | + + + | Home Phone | | + + + | Preferred Language | Unknown | + + + | Marital Status | | + + + | Adventist Affiliation | Unknown | + + + | Race | Unknown | + + + | Ethnic Group | Unknown | + + + Author + + + | Author | [facility] | | | and [place] | + + + | Organization | [facility] | | | [...] Team Providers + +------+ + | Care Bilingual Legal Assistant Name | Role | Phone | [...] | | | | | [address] | [address] [place] | | | | | [place] | [address] | | | | | [address] | | | | | | [phone] | | | +--------+---------+ + + + [...] | | | | | | [place] ([address]) | | | | | + +--------+ [...] my direction according to | | | [facility] conscious sedation protocol. The area for the [...]
--- OUTSIDE RECORDS SUMMARY | ~2018-10-29 | XMS | Encounter Summary ---
Demographics + + + | Address | [address] | | | [place] [address] | + + + | Home Phone [...] + + + | Author | [facility] | + + + | Organization | [facility] | + + + | Address | Unknown | + + + | Phone | Unavailable | + + + Support + + + + + | Name | Relationship | Address | Phone | + + + + + | Brandi Boyle | YURIY | [address] | | | | | [place], [place] | | | | | [address] | | + + + + + Care Team Providers + +------+ + | Care Director Of Provider Relations Name | Role | Phone | + [...] as of this encounter Progress Notes Interface, Bureau Director In - 03/03/2006 10:28 AM PDTCLINIC DATE: [...] radiculopathy. Bubba Karimi M.D. ANDRES / YOLANDA [id number] / [id number] / [id number] / [id number] Tdocumented in this encounter Plan of Treatment Not on filedocumented as of this encounter Visit Diagnoses Not on filedocumented in this encounter"
--- OUTSIDE RECORDS SUMMARY | ~2018-10-29 | XMS | Encounter Summary ---
Demographics + + + | Address | [address] | | | [place] [address] | + + + | Home Phone [...] [place], [place] | | | | | [address] | | + + + + + Care Team Providers + +------+ + | Care Marble Setter Helper Name | Role | Phone | [...] | Lumbar Spinal | | | | [address] [facility] [address] | [address] [place], [place] | Stenosis | | | | Mailcode: [id number] | [address] | | | | | [facility] | | | | | | [place], [place] | | | | | | [address] | | | | | | [phone] | | | +--------+---------+ + + + [...] B/B sx. Still sees Dr. Millan in [place]. Exam is unchanged since last visit, as is pmh. retired from the [facility]. CT scan shows that both SI [...]
--- OUTSIDE RECORDS SUMMARY | ~2018-10-29 | XMS | Encounter Summary ---
Demographics + + + | Address | [address] | | | [place] [address] | + + + | Home Phone | | + + + | Preferred Language | Unknown | + + + | Marital Status | | + + + | Oriental Orthodox Affiliation | NON | + + [...] [place], [place] | | | | | [address] | | + + + + + Care Team Providers + +------+ + | Care Skip Locator Name | Role | Phone | + [...] | | | | | Therapy Center [address] | [facility] [place] | | | | | [address] | [address] | | | | | Outpatient Therapy | [phone] | | | | | Center 2nd floor | | | | | | Mailcode: [id number] | | | | | | [facility] [place] | | | | | | [address] | | | | | | [phone] | | | +--------+ + + + [...] a | | | | | | "[id number]"appearance | | | | | | . [...] | | + +---------+ + + | [facility] DEPARTMENT OF | | [...] | | + +---------+ + + | [facility] DEPARTMENT OF | | | | | RADIOLOGY | | | | + +---------+ + + documented in this encounter Visit Diagnoses Not on filedocumented in this encounter
--- OUTSIDE RECORDS SUMMARY | ~2018-10-29 | XMS | Encounter Summary ---
Demographics + + + | Address | [address] | | | [place] [address] | + + + | Home Phone [...] + + + | Author | [facility] | + + + | Organization | [facility] | + + + | Address | Unknown | + + + | Phone | Unavailable | + + + Support + + + + + | Name | Relationship | Address | Phone | + + + + + | Brandi Boyle | YURIY | [address] | | | | | [place], [place] | | | | | [address] | | + + + + + Care Team Providers + +------+ + | Care Manager Music Name | Role | Phone | + [...] [address] | | | | | [facility] | [address] [place], [place] | | | | | Mailcode: [id number] | [address] | | | | | [facility] | | | | | | [place], [place] | | | | | | [address] | | | | | | [phone] | | | +--------+ + + + [...] | | + +---------+ + + | [facility] DEPARTMENT OF | | | | | RADIOLOGY | | | | + +---------+ + + documented in this encounter Visit Diagnoses Not on filedocumented in this encounter"
--- OUTSIDE RECORDS SUMMARY | ~2018-10-29 | XMS | Clinical Summary ---
Demographics + + + | Address | [address] | | | [place] [address] | + + + | Home Phone [...] [place] | | | | | [address] | | + + + + + Care Team Providers + +------+ + | Care Gmat Tutor Name | Role | Phone | + +------+ + | Yobani Millan DO | PP | | + +------+ + Source Comments [facility] is fully live on both [facility] and [facility] InPatient.[facility] Allergies No Known Allergies Medications + [...]
--- OUTSIDE RECORDS SUMMARY | ~2018-10-29 | XMS | Encounter Summary ---
Demographics + + + | Address | [address] | | | [place] [address] | + + + | Home Phone [...] [place], [place] | | | | | [address] | | + + + + + Care Team Providers + +------+ + | Care Waste Water Plant Operator Name | Role | Phone | [...] as of this encounter Progress Notes Interface, Oracle Consultant In - 02/23/2006 3:02 AM PDTCLINIC DATE: 05/08/[facility] The patient called for a refill on his oxycodone. The prescription was mailed to patient's home address for oxycodone 5 mg 1-2 tablets p.o. q.4-6h. p.r.n. pain, no refills. This was approved by Melanie Kwon. A prescription for Tylenol No. 3, quantity of 60, 1-2 tablets p.o. q.4-6h. p.r.n. pain was called into [facility] at [phone]. Maria Eugenia Roche dictating for: CHENCHO Karimi MM / [id number] / [id number] / [id number] / [id number] C: 05/12/2001 hkh A M PDTdocumented in this encounter Plan of Treatment Not on filedocumented as of this encounter Visit Diagnoses Not on filedocumented in this encounter"
--- OUTSIDE RECORDS SUMMARY | ~2018-10-29 | XMS | Encounter Summary ---
Demographics + + + | Address | [address] | | | [place] [address] | + + + | Home Phone | | + + + | Preferred Language | Unknown | + + + | Marital Status | | + + + | Mormonism Affiliation | Unknown | + + + [...] Team Providers + +------+ + | Care Web Application Dev Specialist Name | Role | Phone | [...] [address] | Assistance | | | | [place], | [place], [place] | | | | | [place] [address] | [address] | | | | | [phone] | | | +--------+ + + + [...]
--- OUTSIDE RECORDS SUMMARY | ~2018-10-29 | XMS | Encounter Summary ---
Demographics + + + | Address | [address] | | | [place] [address] | + + + | Home Phone | | + + + | Preferred Language | Unknown | + + + | Marital Status | | + + + | Worship Affiliation | NON | + + + [...] [place], [place] | | | | | [address] | | + + + + + Care Team Providers + +------+ + | Care Correction Officer Penitentiary Name | Role | Phone | + [...] | Transcriptions | + + | Interface, Genetic Engineer In - 03/08/2006 1:03 AM PDT | | [place] [address] | | [place], [place] [address] | | [facility] | | [id number] Date: 03/25/2001Name: Juanjose BoyleCHRIS SURGEON: | | Steven Price M.D.STOREPERSON SURGEON: Zoila Voss | | RemaPREOPERATIVE DIAGNOSIS:Mechanical [...] patient was then escorted to the [facility] | | pain management center procedure suite, wherehe positioned himself prone on the | | examination table. All pressure pointswere checked and padded. His back was prepped | | with Hibiclens, alcohol, andDuraPrep. Sterile technique was used during the entire | | procedure. Steriledrapes were applied, and gowns, gloves, and masks were worn by the | | surgeonand the assistant drafter surgeon.Fluoroscope was positioned to count the lower [...] cleansed.[facility] where he had an [...] Davis, | | RAHEEM ZELAYA DO[address] [id number]: | |PROCEDURE: | |After a detailed discussion [...] The patient was then escorted to the [facility] pain [facility] procedure suite, where | |he positioned himself prone on the examination table. All pressure points | |were checked and padded. His back was prepped with Hibiclens, alcohol, and | |DuraPrep. Sterile technique was used during the entire procedure. Sterile | |drapes were applied, and gowns, gloves, and masks were worn by the surgeon | |and the assistant drafter surgeon. | | | |Fluoroscope was positioned [...] [address] | |[address] | |[facility] [address] | | | | | |[phone] | | | |CC: | + + documented in this encounter Visit Diagnoses Not on filedocumented in this encounter"
--- OUTSIDE RECORDS SUMMARY | 2018-10-29 01:26 | XMS ---
PreManage Notification: SHARON ORTA Security Inspection Supervisor Events No recent Security Events currently on file CRITERIA MET - [facility] - 2 Visits in 30 Days CARE PROVIDERS There are no care providers on record at this time. Melyssa has no Care Guidelines for this patient. Tomasa VISIT COUNT (12 MO.) 2 [facility] [place] [facility]. TOTAL 2 NOTE: Visits indicate total known visits. ED/UCC VISIT TRACKING (12 MO.) 10/29/2018 01:24 [facility] [place] TYPE: Emergency COMPLAINT: - URINE ISSUE/POST OP 10/28/2018 18:58 [facility] [place] TYPE: Emergency COMPLAINT: - POST OP ISSUE INPATIENT VISIT TRACKING (12 MO.) No inpatient visits to display in this time frame [email or web address]
[2018-11-01] MEDS ORDERED: FLOMAX0.4 MG PO (12:01)
== END 2018-10-29 02:39 | disposition home or self-care (01) ==
LOC: ED 01:24
DX: R33.9 Retention of urine, unspecified (principal)
CPT/HCPCS: 51702; 99283-25

== ENCOUNTER 2020-10-13 10:10 | Emergency (ER) | payer MEDICARE, OTHER ==
[~2020-10-13] VITALS: Ht 172.7 cm; Wt 93.0 kg
[~2020-10-13 10:10] MED LIST changes: +FLOMAX0.4 MG PO
== END 2020-10-13 11:20 | disposition home or self-care (01) ==
LOC: ED 10:10
DX: R33.9 Retention of urine, unspecified (principal)
CPT/HCPCS: 51702; 51798; 99283-25

== ENCOUNTER 2020-10-16 23:51 | Emergency (ER) | payer MEDICARE, OTHER ==
[~2020-10-16] VITALS: Ht 172.7 cm; Wt 93.0 kg
--- OUTSIDE RECORDS SUMMARY | 2020-10-16 23:54 | XMS ---
PreManage Notification: SHARON ORTA Security Exhibit Artist Events No recent Security Events currently on file CRITERIA MET - [facility] - 2 Visits in 30 Days CARE PROVIDERS FILIPPO SMYTH Internal Medicine 10/29/2018-Current PHONE: Unknown Melyssa has no Care Guidelines for this patient. Care History Medical/Surgical 10/29/2018 [facility] - Patient is currently established with [facility]. If patient is seen in the ED during business hours. Please contact [facility] at [facility]. Care Recommendation: This patient has had 5 or more Emergency Department visits in the last 12 months.\T\nbsp; Patient requires education on the scope and purpose of the ED as an acute care provider not a Primary Care Provider and should not be utilized for chronic conditions.\T\nbsp; These are guidelines and the provider should exercise clinical judgment when providing care. E.D. VISIT COUNT (12 MO.) 2 [facility] TOTAL 2 NOTE: Visits indicate total known visits. ED/UCC VISIT TRACKING (12 MO.) 10/16/2020 23:52 [facility] [place] TYPE: Emergency COMPLAINT: - URINE PROBLEM 10/13/2020 10:11 [facility] [place] TYPE: Emergency COMPLAINT: - UNABLE TO URINATE INPATIENT VISIT TRACKING (12 MO.) No inpatient visits to display in this time frame [id number]
== END 2020-10-17 01:00 | disposition home or self-care (01) ==
LOC: ED 23:51
DX: R33.9 Retention of urine, unspecified (principal)
CPT/HCPCS: 51702; 51798; 99283-25